=== PATIENT | female | born 1945 | race Caucasian/White ===

== ENCOUNTER → 2016-07-21 | Outpatient (REF) | payer MEDICARE ==
[~2016-07-21] MED LIST: *BLDWK10; *BLDWK7; *BLDWK8; *MAMMOGRAM; /ADVA50050 INH; /ATOR40TA; /ATOR40TA OR; /GLIM2TA; /GLIM2TA OR; /GLIM2TA PO; /MOXI40TA; /MOXI40TA OR; /MOXI40TA PO; ACET-654 PO; ACET65TA OR; ADVAIR; ADVAIR INH; ADVAIR100 INHALATION; ADVAIR200 INHALATION; ADVAIR500 INHALATION; ALB2.5NEB INH; ALBOTERNEB INHALATION; ALBU0.084 NEB; ALBU17IN2; ALBU17IN2 INH; ALBU83IN IN; ALBUTEROL; ALBUTEROL INH; ALBUTEROL INHALATION; ALBUTEROL INHALER INH; ALBUTEROL INHL INH; ALCOHOL TOP; AMAR1TAB; AMARYL2 PO; ASPI81TA85 PO; ATROVENT0.02% INH; ATROVENTIN; AZOPT 1% OU; BISA10SU2 RE; CEFT500T; CLAR5CHW; CLARITIN PO; CLARITIN10 PO; COLA100C2; COLA100C2 OR; COLA50CA3 PO; DIGO0.126 OR; DOXYCYC100 PO; DRISDOL; DRISDOL50 PO; DUONSOL; DUONSOL IN; DUONSOL INH; DUONSOL INHALATION; DUONSOL NEB; FERR325T; FERR325T OR; FERR325T3 PO; FLONASESPR NASAL; FLUC10TA OR; GLIM1TAB OR; GLIMEPIRIDE OR; GLUCOSE TEST; HCTZ25 PO; HYDR-727 OR; HYDR25TA6; HYDR25TA6 PO; I-VITAB2 OU; IRON CR PO; LACT10SO PO; LANCMIS; LEVA750T OR; LIPITOR10 PO; LIPITOR20 PO; LIPITOR40 PO; LORATADINE OR; LORTAB; METH32TA PO; MEVACOR40 PO; MOXI1TAB PO; O2; OMEP20TA7; OMEP20TA7 OR; OMEPRAZ20 PO; POTA10CA2; POTA20TA2; PRED10TA PO; PRED10TA2; PRED10TA2 OR; PRED10TA2 PO; PRED20TA; PRED20TA OR; PRED20TA PO; PREDNISONE TAPER; PREMPRO2.5; PROTONIX40 PO; SENO8.6T5 OR; SERENITY; SEREVENTIN PO; SING10TA31; SING10TA31 OR; SINGULAI10 PO; SYRINS1CC SUBQ; TRAV04OPD OU; TRAVATAN Z 0.004% OU; TYLE325T5 PO; VITA100037 PO; VITAMIN D OR; VITAMIN D PO; VITAMIN D50000 UNT; ZITHROZPAK PO; [UNRECOGNIZED DRUG - OTHER] PO; [UNRECOGNIZED DRUG - OTHER] TOPICALLY
[2016-07-21 13:12] LABS: ALBUMIN 3.5 GM/DL (3.2-5.2); ALBUMIN/GLOBULIN RATIO 1.09 (1.00-1.93); ALKALINE PHOSPHATASE 116 U/L (45-117); ALT/SGPT 29 U/L (12-78); ANION GAP 6 MEQ/L (8-16); AST/SGOT 17 U/L (15-37); BILIRUBIN,TOTAL 0.3 MG/DL (0.2-1.0); BLOOD UREA NITROGEN 8 MG/DL (7-18); CALCIUM LEVEL 9.8 MG/DL (8.8-10.2); CARBON DIOXIDE LEVEL 32 MEQ/L (21-32); CHLORIDE LEVEL 108 MEQ/L (98-107); CHOLESTEROL LEVEL 147 MG/DL (<200); CREATININE FOR GFR 0.61 MG/DL (0.55-1.02); FERRITIN 198 NG/ML (8-252); GLOMERULAR FILTRATION RATE > 60.0 (>39); GLUCOSE, FASTING 116 MG/DL (83-110); POTASSIUM SERUM 4.4 MEQ/L (3.5-5.1); SODIUM LEVEL 146 MEQ/L (136-145); TOTAL PROTEIN 6.7 GM/DL (6.4-8.2); TRIGLYCERIDES LEVEL 79 MG/DL (<150)
[2016-07-21 13:19] LABS: MEAN CORPUSCULAR VOLUME 90.6 fl (80.0-96.0); RED CELL DISTRIBUTION WIDTH 13.4 % (11.5-14.5); WHITE BLOOD COUNT 5.8 K/mm3 (4.0-10.0)
== END ==
LOC: M SFHCPLAZ 09:28
PROVIDERS: ATTEND Nurse Practitioner Adult Health
DX: D50.9 Iron deficiency anemia, unspecified (principal); E11.9 Type 2 diabetes mellitus without complications; E55.9 Vitamin D deficiency, unspecified

== ENCOUNTER 2017-01-15 09:46 | Emergency (ER) | payer MEDICARE, MEDICAID ==
[~2017-01-15] VITALS: Ht 152.4 cm; Wt 73.6 kg
[~2017-01-15 09:46] MED LIST changes: -VITA100037 PO; +VITA100067 PO
--- NOTE | 2017-01-15 11:46 | ECGEPIP ---
Stationary ECG Study [facility] - ED Test Date: 2017-01-15 Pat Name: YAMINI DUNNE Department: Room: - Gender: F Laborer General: JT : 1945 Requested By: Fish Zavala Order Number: [id number] Reading MD: Amy Montgomery Measurements Intervals [place] Rate: 94 P: 76 AK: 156 QRS: 35 QRSD: 74 T: 37 QT: 356 QTc: 447 Interpretive Statements SINUS RHYTHM NSTTW ABNORMALITY DECREASED RATE 05/14/15 Electronically Signed On 01-15-2017 11:46:17 EDT by Amy Montgomery
--- NOTE | 2017-01-15 11:47 | REP ---
Portable chest x-ray: Single view. History: Chest pain. Comparison study May 14, 2015. Comparison CT ANGIO of the chest is from that same date. Findings: EKG monitoring electrodes overlie the chest. There is pleuroparenchymal scarring in the left apex which is unchanged. Granulomatous lymph node calcifications are observed in the right paratracheal region. Heart is not enlarged. No new infiltrate is seen. Pulmonary vasculature is not increased. Impression: Evidence of COPD. Left apical pleuroparenchymal scarring. Granulomatous lymph node calcifications. No acute disease. Signed by Praveen Nelson MD 01/15/2017 03:20 P
[2017-01-15 11:57] LABS: BASO % 0.6 % (0.0-1.0); EOS # 0.2 K/mm3 (0.0-0.50); EOS % 3.3 % (0.0-3.0); LARGE UNSTAINED CELL # 0.1 K/mm3 (0.0-0.4); LARGE UNSTAINED CELL % 1.6 % (0.0-4.0); LYMPH # 1.6 K/mm3 (1.5-4.5); LYMPH % 23.9 % (24.0-44.0); MEAN CORPUSCULAR HEMOGLOBIN 29.3 pg (27.0-33.0); MEAN CORPUSCULAR VOLUME 88.7 fl (80.0-96.0); MONO # 0.3 K/mm3 (0.0-0.8); MONO % 4.6 % (0.0-5.0); NEUTROPHILS # 4.4 K/mm3 (1.8-7.7); PLATELET COUNT, AUTOMATED 319 k/mm3 (150-450); RED CELL DISTRIBUTION WIDTH 12.9 % (11.5-14.5); WHITE BLOOD COUNT 6.6 K/mm3 (4.0-10.0)
[2017-01-15 12:17] LABS: ANION GAP 4 MEQ/L (8-16); BLOOD UREA NITROGEN 7 MG/DL (7-18); CARBON DIOXIDE LEVEL 34 MEQ/L (21-32); CHLORIDE LEVEL 103 MEQ/L (98-107); CREATININE FOR GFR 0.57 MG/DL (0.55-1.02); GLOMERULAR FILTRATION RATE > 60.0 (>39); GLUCOSE, FASTING 97 MG/DL (83-110); POTASSIUM SERUM 3.8 MEQ/L (3.5-5.1); SODIUM LEVEL 141 MEQ/L (136-145)
[2017-01-15] MEDS ORDERED: ISOVUE-370 76% 100ML VIAL (Q9967) As Ordered ONE (12:54)
--- NOTE | 2017-01-15 13:26 | REP ---
CT of the chest CT pulmonary angiography protocol: Comparison is 05/14/2015. Studies performed with intravenous contrast. There are no emboli in the pulmonary trunk or central pulmonary arteries. There are no emboli in the pulmonary artery lobe or segment branches. There is chronic pleural parenchymal scarring in the lung apices, unchanged. There is chronic parenchymal scarring and partial chronic collapse of the left upper lobe posteriorly along the major fissure, unchanged. There are small bulla throughout the lung weber bilaterally, unchanged. There is a subsegmental infiltrate in the deep sulcus of the left lung posterolaterally as an interval change. There are a few calcified granulomas, unchanged. There are calcified mediastinal and hilar nodes, unchanged. The thoracic aorta is unremarkable. Cardiac size is normal. In the visualized upper abdomen there is a ring-shaped gallbladder calculus in the gallbladder neck. There is a small cyst at the inferior tip of the hepatic right lobe. There are multiple splenic calcified granulomas. The adrenals are unremarkable. Impression: No pulmonary embolus. New small subsegmental infiltrate in the deep sulcus of the left lung posterolaterally. Chronic parenchymal scarring bilaterally as described. Calcified granulomas as described. Numerous bulla throughout the lung weber bilaterally. Gallbladder calculus. Signed by Doe Marc MD 01/15/2017 01:19 P
[2017-01-15] MEDS ORDERED: AZIT-12 PO (14:37)
[2017-01-15 14:41] VITALS: BP 140/64
[2017-01-15] MEDS ORDERED: AZITHROMYCIN 250 MG TAB PO ONE (14:45)
--- NOTE | 2017-01-17 05:40 | ECGEPIP ---
Stationary ECG Study [facility] - ED Test Date: 2017-01-15 Pat Name: YAMINI DUNNE Department: Room: - Gender: F Maintenance Analyst: JT : 1945 Requested By: Fish Zavala Order Number: [id number] Reading MD: Fish Carmen Measurements Intervals [place] Rate: 89 P: 82 ME: 158 QRS: 28 QRSD: 73 T: 38 QT: 373 QTc: 454 Interpretive Statements SINUS RHYTHM Electronically Signed On 01-17-2017 5:40:47 EDT by Fish Carmen
== END 2017-01-15 16:37 | disposition home or self-care (01) ==
LOC: M ED 09:46
DX: J18.9 Pneumonia, unspecified organism (principal); E11.9 Type 2 diabetes mellitus without complications; I10 Essential (primary) hypertension; J44.9 Chronic obstructive pulmonary disease, unspecified; Z79.899 Other long term (current) drug therapy; Z79.82 Long term (current) use of aspirin; Z79.51 Long term (current) use of inhaled steroids; Z99.81 Dependence on supplemental oxygen; Z88.0 Allergy status to penicillin; Z87.891 Personal history of nicotine dependence
CPT/HCPCS: 36415; 71010; 71275; 80048; 82550; 82553; 84484; 85025; 93005; 93041; 94760; 99285; Q9967

== ENCOUNTER → 2017-08-16 | Outpatient (REF) | payer MEDICARE, MEDICAID ==
[2017-08-16 16:14] LABS: ALBUMIN 3.3 GM/DL (3.2-5.2); ALBUMIN/GLOBULIN RATIO 0.83 (1.00-1.93); ALKALINE PHOSPHATASE 128 U/L (45-117); ALT/SGPT 23 U/L (12-78); ANION GAP 5 MEQ/L (8-16); AST/SGOT 18 U/L (7-37); BILIRUBIN,TOTAL 0.3 MG/DL (0.2-1.0); BLOOD UREA NITROGEN 9 MG/DL (7-18); CALCIUM LEVEL 9.7 MG/DL (8.8-10.2); CARBON DIOXIDE LEVEL 31 MEQ/L (21-32); CHLORIDE LEVEL 105 MEQ/L (98-107); CHOLESTEROL LEVEL 130 MG/DL (<200); CHOLESTEROL RISK RATIO 3.513 (<5); CREATININE FOR GFR 0.59 MG/DL (0.55-1.30); GLOMERULAR FILTRATION RATE > 60.0 (>39); GLUCOSE, FASTING 94 MG/DL (70-100); HDL CHOLESTEROL 37 MG/DL (>40); LDL CHOLESTEROL 65.2 MG/DL (<100); NON-HDL-C 93 MG/DL; SODIUM LEVEL 141 MEQ/L (136-145); TOTAL PROTEIN 7.3 GM/DL (6.4-8.2); TRIGLYCERIDES LEVEL 139 MG/DL (<150)
[2017-08-16 16:21] LABS: CREATININE, URINE 17.6 MG/DL; MALB URINE SIEMENS 5.3 MG/L; MAU/CREAT RATIO 30.1 MCG/MG (0.0-30.0)
[2017-08-16 17:18] LABS: ESTIMATED AVERAGE GLUCOSE 117 MG/DL (60-110); HEMOGLOBIN A1c 5.7 %
== END ==
LOC: M SFHCPLAZ 13:59
DX: E11.9 Type 2 diabetes mellitus without complications (principal); E55.9 Vitamin D deficiency, unspecified; E78.00 Pure hypercholesterolemia, unspecified
CPT/HCPCS: 80053

== ENCOUNTER 2017-09-02 13:38 | Inpatient (IN) | payer MEDICARE, MEDICAID ==
[2017-09-02] MEDS: ONDANSETRON 4MG/2ML VIAL (J2405) IV (14:01)
[2017-09-02] MEDS: MORPHINE 4 MG/ML 1ML VIAL/SYRINGE (J2270) IV (14:01)
[2017-09-02] MEDS: NS 1,000 ML IV (14:01)
[2017-09-02 14:19] LABS: BASO % 0.2 % (0.0-1.0); EOS # 0.1 10^3/uL (0.0-0.50); EOS % 0.5 % (0.0-3.0); HEMOGLOBIN 13.2 g/dl (12.0-15.5); IMMATURE GRANULOCYTE % 0.4 % (0-3.0); LYMPH # 3.3 10^3/uL (1.5-4.5); LYMPH % 18.9 % (24.0-44.0); MEAN CORPUSCULAR HEMOGLOBIN 27.3 pg (27.0-33.0); MEAN CORPUSCULAR HGB CONC 31.4 g/dl (32.0-36.5); MEAN CORPUSCULAR VOLUME 86.8 fl (80.0-96.0); MONO # 1.5 10^3/uL (0.0-0.8); MONO % 8.9 % (0.0-5.0); NEUTROPHILS # 12.3 10^3/uL (1.8-7.7); NEUTROPHILS % 71.1 % (36.0-66.0); PLATELET COUNT, AUTOMATED 297 10^3/uL (150-450); RED BLOOD COUNT 4.84 10^6/uL (4.00-5.40); RED CELL DISTRIBUTION WIDTH 14.3 % (11.5-14.5); WHITE BLOOD COUNT 17.3 10^3/uL (4.0-10.0)
[2017-09-02 14:29] LABS: INR 1.23; PROTHROMBIN TIME 15.7 SECONDS (12.4-14.5)
[2017-09-02 14:42] LABS: LACTIC ACID SEPSIS PROTOCOL 1.2 MMOL/L (0.4-2.0)
[2017-09-02 14:43] LABS: ALBUMIN/GLOBULIN RATIO 0.71 (1.00-1.93); ALKALINE PHOSPHATASE 134 U/L (45-117); ALT/SGPT 24 U/L (12-78); ANION GAP 6 MEQ/L (8-16); AST/SGOT 21 U/L (7-37); BILIRUBIN,DIRECT 0.3 MG/DL (0.0-0.2); BILIRUBIN,TOTAL 0.7 MG/DL (0.2-1.0); BLOOD UREA NITROGEN 27 MG/DL (7-18); CALCIUM LEVEL 9.8 MG/DL (8.8-10.2); CARBON DIOXIDE LEVEL 32 MEQ/L (21-32); CHLORIDE LEVEL 99 MEQ/L (98-107); CREATININE FOR GFR 0.73 MG/DL (0.55-1.30); GLOMERULAR FILTRATION RATE > 60.0 (>39); GLUCOSE, FASTING 78 MG/DL (70-100); LIPASE 187 U/L (73-393); POTASSIUM SERUM 3.6 MEQ/L (3.5-5.1); SODIUM LEVEL 137 MEQ/L (136-145); TOTAL PROTEIN 7.2 GM/DL (6.4-8.2)
[2017-09-02] MEDS: CIPROFLOXACIN 400 MG in APPROPRIATE DILUENT 1 EA IV (15:04)
[2017-09-02 15:18] LABS: CK-MB VALUE MASS < 1.0 NG/ML (<3.6); CPK CREATINE PHOSPHOKINASE 63 U/L (26-192); MB/CK RELATIVE INDEX 1.58 (< OR =4); TROPONIN I < 0.02 NG/ML (< 0.10)
[2017-09-02] MEDS ORDERED: MORPHINE 4 MG/ML 1ML VIAL/SYRINGE (J2270) IV (15:45)
[2017-09-02] MEDS ORDERED: ACETAMINOPHEN 325 MG TAB PO (15:45)
[2017-09-02] MEDS ORDERED: ACETAMINOPHEN TAB 650MG DOSE (2X325MG) PO (15:45)
[2017-09-02] MEDS ORDERED: NORCO, ANEXSIA 5/325MG TABLET (HYDROcodone/ACETAMINOPHEN) PO (15:45)
[2017-09-02] MEDS ORDERED: ONDANSETRON 4MG/2ML VIAL (J2405) IV (15:45)
[2017-09-02] MEDS: metroNIDAZOLE 500 MG in APPROPRIATE DILUENT 1 EA IV ×2 (16:34→23:21)
[2017-09-02] MEDS: LR 1,000 ML IV (16:34)
[2017-09-02] MEDS: IPRATROPIUM 0.5MG/ALBUTEROL 2.5MG INH SOL UD 3ML (DUONEB)(J7620) INH (17:59)
[2017-09-02] MEDS ORDERED: IPRATROPIUM 0.5MG/ALBUTEROL 2.5MG INH SOL UD 3ML (DUONEB)(J7620) NEB (20:00)
[2017-09-02] MEDS: PANTOPRAZOLE 40MG INJ (PROTONIX) (C9113) IV (20:43)
[2017-09-02] MEDS: MONTELUKAST 10 MG TAB PO (20:44)
[2017-09-02] MEDS: SENOKOT S TAB PO (20:44)
[2017-09-02] MEDS: HEPARIN SOD (PORCINE) 5000 UNITS/ML VIAL SC (20:44)
[2017-09-02] MEDS: ADVAIR HFA 230/21MCG INHALER INH (21:44)
[2017-09-02] MEDS: LATANOPROST 0.005% OPHTH SOLN 2.5 ML OU (22:43)
[2017-09-02] MEDS: KETOROLAC 30 MG/ML VIAL (J1885) IV (22:47)
[2017-09-03 00:39] LABS: BEDSIDE GLUCOSE 74 MG/DL (83-110)
[2017-09-03] MEDS: CIPROFLOXACIN 400 MG in APPROPRIATE DILUENT 1 EA IV ×2 (03:01→20:42)
[2017-09-03] MEDS: LR 1,000 ML IV ×4 (03:06→16:30)
[2017-09-03 03:24] LABS: BEDSIDE GLUCOSE 73 MG/DL (83-110)
[2017-09-03] MEDS: metroNIDAZOLE 500 MG in APPROPRIATE DILUENT 1 EA IV ×3 (06:02→22:50)
[2017-09-03 06:06] LABS: ABG BASE EXCESS 4.6 (-2.0-2.0); ABG HCO3 30.2 MEQ/L (22.0-26.0); ABG O2 SATURATION 97.6 % (95.0-99.0); ABG PARTIAL PRESSURE CO2 49.3 mmHg (35.0-45.0); ABG PARTIAL PRESSURE O2 96.3 mmHg (75.0-100.0); ABG STANDARD HCO3 28.6 MEQ/L (22.0-26.0); ABG TOTAL CO2 31.7 MEQ/L (23.0-31.0); ABG pH (ARTERIAL) 7.405 UNITS (7.350-7.450)
[2017-09-03 06:16] LABS: HEMATOCRIT 34.5 % (36.0-47.0); MEAN CORPUSCULAR HEMOGLOBIN 27.1 pg (27.0-33.0); MEAN CORPUSCULAR HGB CONC 30.7 g/dl (32.0-36.5); MEAN CORPUSCULAR VOLUME 88.2 fl (80.0-96.0); PLATELET COUNT, AUTOMATED 231 10^3/uL (150-450); RED BLOOD COUNT 3.91 10^6/uL (4.00-5.40); RED CELL DISTRIBUTION WIDTH 14.4 % (11.5-14.5); WHITE BLOOD COUNT 9.9 10^3/uL (4.0-10.0)
[2017-09-03 06:25] LABS: HEMOGLOBIN 10.6 g/dl (12.0-15.5)
[2017-09-03 06:28] LABS: ALBUMIN 2.1 GM/DL (3.2-5.2); ALKALINE PHOSPHATASE 97 U/L (45-117); ALT/SGPT 17 U/L (12-78); ANION GAP 5 MEQ/L (8-16); AST/SGOT 16 U/L (7-37); BILIRUBIN,TOTAL 0.4 MG/DL (0.2-1.0); BLOOD UREA NITROGEN 16 MG/DL (7-18); CALCIUM LEVEL 9.2 MG/DL (8.8-10.2); CARBON DIOXIDE LEVEL 31 MEQ/L (21-32); CHLORIDE LEVEL 105 MEQ/L (98-107); CREATININE FOR GFR 0.52 MG/DL (0.55-1.30); GLOMERULAR FILTRATION RATE > 60.0 (>39); GLUCOSE, FASTING 85 MG/DL (70-100); MAGNESIUM LEVEL 2.2 MG/DL (1.8-2.4); POTASSIUM SERUM 3.4 MEQ/L (3.5-5.1); SODIUM LEVEL 141 MEQ/L (136-145); TOTAL PROTEIN 6.3 GM/DL (6.4-8.2)
[2017-09-03] MEDS: SENOKOT S TAB PO ×2 (07:52→20:34)
[2017-09-03] MEDS: VITAMIN D 1,000 INTERNATIONAL UNITS TABLET PO (07:52)
[2017-09-03] MEDS: HEPARIN SOD (PORCINE) 5000 UNITS/ML VIAL SC ×2 (07:53→20:41)
[2017-09-03] MEDS: ADVAIR HFA 230/21MCG INHALER INH ×2 (08:02→19:37)
[2017-09-03] MEDS: ATORVASTATIN 20 MG TAB PO (09:00)
[2017-09-03] MEDS: POTASSIUM CHLORIDE 10 MEQ SR TABLET PO (11:00)
[2017-09-03] MEDS: TIOTROPIUM INHALER/CAPSULE (SPIRIVA) INH (11:14)
[2017-09-03] MEDS: BUDESONIDE 0.5 MG/2 ML INHALATION SUSPENSION INH ×2 (11:14→19:37)
[2017-09-03] MEDS: IPRATROPIUM 0.5MG/ALBUTEROL 2.5MG INH SOL UD 3ML (DUONEB)(J7620) NEB ×3 (11:15→19:37)
[2017-09-03] MEDS ORDERED: MIDAZOLAM INJ 2 MG/2 ML VIAL (J2250) As Ordered (12:08)
[2017-09-03] MEDS ORDERED: fentaNYL 100 MCG/2 ML INJECTION (J3010) As Ordered ×3 (12:08→16:39)
[2017-09-03] MEDS ORDERED: ROCURONIUM BROMIDE 50 MG/5 ML VIAL As Ordered (12:09)
[2017-09-03] MEDS ORDERED: PROPOFOL 200 MG/20 ML VIAL As Ordered (12:09)
[2017-09-03] MEDS ORDERED: LIDOCAINE 2% INJ 100 MG/5 ML SDV (FOR ANES.) As Ordered (12:09)
[2017-09-03] MEDS: LIDOCAINE 1% SDV INJ 30 ML VIAL As Ordered (13:02)
[2017-09-03] MEDS: BUPIVACAINE HCL 0.25% 30 ML VIAL As Ordered (13:02)
[2017-09-03] MEDS ORDERED: dexameTHASONE 4 MG/ML 1ML VIAL (J1100) As Ordered (13:45)
[2017-09-03] MEDS ORDERED: ONDANSETRON 4MG/2ML VIAL (J2405) As Ordered (13:45)
[2017-09-03] MEDS ORDERED: KETOROLAC 60 MG/2 ML VIAL (J1885) As Ordered (13:45)
[2017-09-03] MEDS: CIPROFLOXACIN/D5W 400 MG/200 ML BAG (J0744) As Ordered (14:56)
[2017-09-03] MEDS ORDERED: SUGAMMADEX SODIUM 500 MG/5 ML VIAL (BRIDION) As Ordered (15:11)
[2017-09-03] MEDS ORDERED: ESMOLOL INJ 100MG/10ML VIAL As Ordered (15:46)
[2017-09-03 16:23] LABS: BEDSIDE GLUCOSE 179 MG/DL (83-110)
[2017-09-03] MEDS ORDERED: ONDANSETRON 4MG/2ML VIAL (J2405) IV (16:30)
[2017-09-03] MEDS ORDERED: fentaNYL 100 MCG/2 ML INJECTION (J3010) IV (16:30)
[2017-09-03] MEDS: OMEGA-3 1050MG CAPSULE PO (20:33)
[2017-09-03] MEDS: MONTELUKAST 10 MG TAB PO (20:34)
[2017-09-03] MEDS: KETOROLAC 30 MG/ML VIAL (J1885) IV (20:42)
[2017-09-03] MEDS: LATANOPROST 0.005% OPHTH SOLN 2.5 ML OU (20:43)
[2017-09-03] MEDS: PANTOPRAZOLE 40MG INJ (PROTONIX) (C9113) IV (22:00)
[2017-09-03] MEDS: POTASSIUM CHLORIDE INJ 40 MEQ in LR 1,000 ML IV (22:50)
[2017-09-04] MEDS: KETOROLAC 30 MG/ML VIAL (J1885) IV ×2 (05:29→13:57)
[2017-09-04 06:13] LABS: BASO % 0.2 % (0.0-1.0); HEMATOCRIT 34.9 % (36.0-47.0); HEMOGLOBIN 11.2 g/dl (12.0-15.5); IMMATURE GRANULOCYTE % 0.2 % (0-3.0); LYMPH # 0.9 10^3/uL (1.5-4.5); LYMPH % 7.1 % (24.0-44.0); MEAN CORPUSCULAR HEMOGLOBIN 27.9 pg (27.0-33.0); MEAN CORPUSCULAR HGB CONC 32.1 g/dl (32.0-36.5); MONO % 8.1 % (0.0-5.0); NEUTROPHILS # 10.4 10^3/uL (1.8-7.7); NEUTROPHILS % 84.4 % (36.0-66.0); PLATELET COUNT, AUTOMATED 213 10^3/uL (150-450); RED BLOOD COUNT 4.01 10^6/uL (4.00-5.40); RED CELL DISTRIBUTION WIDTH 14.1 % (11.5-14.5); WHITE BLOOD COUNT 12.4 10^3/uL (4.0-10.0)
[2017-09-04 06:27] LABS: ALBUMIN 2.2 GM/DL (3.2-5.2); ALBUMIN/GLOBULIN RATIO 0.54 (1.00-1.93); ALKALINE PHOSPHATASE 105 U/L (45-117); ALT/SGPT 35 U/L (12-78); ANION GAP 5 MEQ/L (8-16); AST/SGOT 41 U/L (7-37); BILIRUBIN,TOTAL 0.3 MG/DL (0.2-1.0); BLOOD UREA NITROGEN 9 MG/DL (7-18); CALCIUM LEVEL 9.2 MG/DL (8.8-10.2); CARBON DIOXIDE LEVEL 31 MEQ/L (21-32); CHLORIDE LEVEL 106 MEQ/L (98-107); CREATININE FOR GFR 0.44 MG/DL (0.55-1.30); GLOMERULAR FILTRATION RATE > 60.0 (>39); GLUCOSE, FASTING 123 MG/DL (70-100); POTASSIUM SERUM 4.1 MEQ/L (3.5-5.1); SODIUM LEVEL 142 MEQ/L (136-145); TOTAL PROTEIN 6.3 GM/DL (6.4-8.2)
[2017-09-04] MEDS: metroNIDAZOLE 500 MG in APPROPRIATE DILUENT 1 EA IV ×3 (06:28→23:14)
[2017-09-04 06:33] LABS: POS COUNT POS FLAG
[2017-09-04] MEDS: IPRATROPIUM 0.5MG/ALBUTEROL 2.5MG INH SOL UD 3ML (DUONEB)(J7620) NEB ×4 (08:00→20:03)
[2017-09-04] MEDS: BUDESONIDE 0.5 MG/2 ML INHALATION SUSPENSION INH ×2 (08:11→20:03)
[2017-09-04] MEDS: TIOTROPIUM INHALER/CAPSULE (SPIRIVA) INH (08:11)
[2017-09-04] MEDS: ADVAIR HFA 230/21MCG INHALER INH ×2 (08:11→20:03)
[2017-09-04] MEDS: CIPROFLOXACIN 400 MG in APPROPRIATE DILUENT 1 EA IV ×2 (09:46→20:13)
[2017-09-04] MEDS: OMEGA-3 1050MG CAPSULE PO (09:46)
[2017-09-04] MEDS: VITAMIN D 1,000 INTERNATIONAL UNITS TABLET PO (09:46)
[2017-09-04] MEDS: ATORVASTATIN 20 MG TAB PO (09:46)
[2017-09-04] MEDS: HEPARIN SOD (PORCINE) 5000 UNITS/ML VIAL SC ×2 (09:46→20:14)
[2017-09-04] MEDS: SENOKOT S TAB PO ×2 (09:46→20:13)
[2017-09-04] MEDS ORDERED: MORPHINE 4 MG/ML 1ML VIAL/SYRINGE (J2270) IV (10:45)
[2017-09-04] MEDS: LR 1,000 ML IV ×2 (11:39→23:14)
[2017-09-04] MEDS: PREVNAR 13 VACCINE SYRINGE (CPT CODE:90670) IM (16:06)
[2017-09-04] MEDS: MONTELUKAST 10 MG TAB PO (20:14)
[2017-09-04] MEDS: PANTOPRAZOLE 40MG INJ (PROTONIX) (C9113) IV (20:14)
[2017-09-04] MEDS: LATANOPROST 0.005% OPHTH SOLN 2.5 ML OU (20:15)
[2017-09-05 06:16] LABS: HEMATOCRIT 31.6 % (36.0-47.0); MEAN CORPUSCULAR HEMOGLOBIN 27.8 pg (27.0-33.0); MEAN CORPUSCULAR HGB CONC 31.6 g/dl (32.0-36.5); MEAN CORPUSCULAR VOLUME 87.8 fl (80.0-96.0); PLATELET COUNT, AUTOMATED 247 10^3/uL (150-450); RED CELL DISTRIBUTION WIDTH 14.5 % (11.5-14.5); WHITE BLOOD COUNT 9.6 10^3/uL (4.0-10.0)
[2017-09-05] MEDS: metroNIDAZOLE 500 MG in APPROPRIATE DILUENT 1 EA IV ×3 (06:30→23:35)
[2017-09-05 06:40] LABS: ALBUMIN 2.1 GM/DL (3.2-5.2); ALBUMIN/GLOBULIN RATIO 0.51 (1.00-1.93); ALKALINE PHOSPHATASE 90 U/L (45-117); ALT/SGPT 29 U/L (12-78); ANION GAP 5 MEQ/L (8-16); AST/SGOT 30 U/L (7-37); BILIRUBIN,TOTAL 0.4 MG/DL (0.2-1.0); BLOOD UREA NITROGEN 6 MG/DL (7-18); CALCIUM LEVEL 9.1 MG/DL (8.8-10.2); CARBON DIOXIDE LEVEL 34 MEQ/L (21-32); CHLORIDE LEVEL 104 MEQ/L (98-107); CREATININE FOR GFR 0.34 MG/DL (0.55-1.30); GLOMERULAR FILTRATION RATE > 60.0 (>39); GLUCOSE, FASTING 109 MG/DL (70-100); POTASSIUM SERUM 3.5 MEQ/L (3.5-5.1); SODIUM LEVEL 143 MEQ/L (136-145); TOTAL PROTEIN 6.2 GM/DL (6.4-8.2)
[2017-09-05] MEDS: IPRATROPIUM 0.5MG/ALBUTEROL 2.5MG INH SOL UD 3ML (DUONEB)(J7620) NEB ×4 (07:31→20:00)
[2017-09-05] MEDS: BUDESONIDE 0.5 MG/2 ML INHALATION SUSPENSION INH ×2 (08:50→20:00)
[2017-09-05] MEDS: TIOTROPIUM INHALER/CAPSULE (SPIRIVA) INH (08:50)
[2017-09-05] MEDS: ADVAIR HFA 230/21MCG INHALER INH ×2 (08:50→21:27)
[2017-09-05] MEDS: HEPARIN SOD (PORCINE) 5000 UNITS/ML VIAL SC ×2 (09:03→20:24)
[2017-09-05] MEDS: CIPROFLOXACIN 400 MG in APPROPRIATE DILUENT 1 EA IV ×2 (09:03→20:24)
[2017-09-05] MEDS: SENOKOT S TAB PO ×2 (09:03→20:23)
[2017-09-05] MEDS: NORCO, ANEXSIA 5/325MG TABLET (HYDROcodone/ACETAMINOPHEN) PO (14:35)
[2017-09-05 17:01] LABS: BEDSIDE GLUCOSE 176 MG/DL (83-110)
[2017-09-05 17:01] LABS: BEDSIDE GLUCOSE 95 MG/DL (83-110)
[2017-09-05 17:01] LABS: BEDSIDE GLUCOSE 154 MG/DL (83-110)
[2017-09-05 17:01] LABS: BEDSIDE GLUCOSE 105 MG/DL (83-110)
[2017-09-05 17:01] LABS: BEDSIDE GLUCOSE 192 MG/DL (83-110)
[2017-09-05 17:01] LABS: BEDSIDE GLUCOSE 141 MG/DL (83-110)
[2017-09-05 17:01] LABS: BEDSIDE GLUCOSE 138 MG/DL (83-110)
[2017-09-05] MEDS: MONTELUKAST 10 MG TAB PO (20:23)
[2017-09-05] MEDS: PANTOPRAZOLE 40MG INJ (PROTONIX) (C9113) IV (20:23)
[2017-09-05] MEDS: LATANOPROST 0.005% OPHTH SOLN 2.5 ML OU (20:24)
[2017-09-06 05:53] LABS: HEMATOCRIT 31.2 % (36.0-47.0); HEMOGLOBIN 9.8 g/dl (12.0-15.5); MEAN CORPUSCULAR HEMOGLOBIN 27.9 pg (27.0-33.0); MEAN CORPUSCULAR HGB CONC 31.4 g/dl (32.0-36.5); MEAN CORPUSCULAR VOLUME 88.9 fl (80.0-96.0); PLATELET COUNT, AUTOMATED 223 10^3/uL (150-450); RED BLOOD COUNT 3.51 10^6/uL (4.00-5.40); RED CELL DISTRIBUTION WIDTH 14.5 % (11.5-14.5)
[2017-09-06 06:15] LABS: ALBUMIN/GLOBULIN RATIO 0.51 (1.00-1.93); ALKALINE PHOSPHATASE 84 U/L (45-117); ALT/SGPT 32 U/L (12-78); ANION GAP 4 MEQ/L (8-16); AST/SGOT 34 U/L (7-37); BILIRUBIN,TOTAL 0.3 MG/DL (0.2-1.0); BLOOD UREA NITROGEN 6 MG/DL (7-18); CALCIUM LEVEL 9.3 MG/DL (8.8-10.2); CARBON DIOXIDE LEVEL 35 MEQ/L (21-32); CHLORIDE LEVEL 103 MEQ/L (98-107); CREATININE FOR GFR 0.41 MG/DL (0.55-1.30); GLOMERULAR FILTRATION RATE > 60.0 (>39); GLUCOSE, FASTING 145 MG/DL (70-100); MAGNESIUM LEVEL 2.1 MG/DL (1.8-2.4); POTASSIUM SERUM 3.4 MEQ/L (3.5-5.1); SODIUM LEVEL 142 MEQ/L (136-145); TOTAL PROTEIN 5.9 GM/DL (6.4-8.2)
[2017-09-06] MEDS: metroNIDAZOLE 500 MG in APPROPRIATE DILUENT 1 EA IV (06:47)
[2017-09-06] MEDS: NORCO, ANEXSIA 5/325MG TABLET (HYDROcodone/ACETAMINOPHEN) PO ×3 (06:55→16:34)
[2017-09-06] MEDS: ADVAIR HFA 230/21MCG INHALER INH ×2 (07:52→21:22)
[2017-09-06] MEDS: BUDESONIDE 0.5 MG/2 ML INHALATION SUSPENSION INH ×2 (07:53→20:00)
[2017-09-06] MEDS: TIOTROPIUM INHALER/CAPSULE (SPIRIVA) INH (07:53)
[2017-09-06] MEDS: IPRATROPIUM 0.5MG/ALBUTEROL 2.5MG INH SOL UD 3ML (DUONEB)(J7620) NEB ×4 (08:00→20:00)
[2017-09-06] MEDS: CIPROFLOXACIN 400 MG in APPROPRIATE DILUENT 1 EA IV (08:24)
[2017-09-06] MEDS: SENOKOT S TAB PO ×2 (08:25→21:02)
[2017-09-06] MEDS: HEPARIN SOD (PORCINE) 5000 UNITS/ML VIAL SC ×2 (08:25→21:03)
[2017-09-06] MEDS: GLIMEPIRIDE 1 MG TABLET PO (08:29)
[2017-09-06] MEDS: POTASSIUM CHLORIDE 10 MEQ SR TABLET PO (11:38)
[2017-09-06 11:46] LABS: BEDSIDE GLUCOSE 165 MG/DL (83-110)
[2017-09-06] MEDS: metroNIDAZOLE (FLAGYL) 500 MG TAB PO ×2 (14:10→21:03)
[2017-09-06] MEDS: ASPIRIN 81 MG ENTERIC TAB PO (14:10)
[2017-09-06] MEDS: CIPROFLOXACIN 500 MG TAB PO (17:18)
[2017-09-06 20:44] LABS: BEDSIDE GLUCOSE 113 MG/DL (83-110)
[2017-09-06 20:44] LABS: BEDSIDE GLUCOSE 120 MG/DL (83-110)
[2017-09-06 20:44] LABS: BEDSIDE GLUCOSE 162 MG/DL (83-110)
[2017-09-06] MEDS: MONTELUKAST 10 MG TAB PO (21:03)
[2017-09-06] MEDS: LATANOPROST 0.005% OPHTH SOLN 2.5 ML OU (21:03)
[2017-09-07 06:03] LABS: HEMATOCRIT 31.1 % (36.0-47.0); HEMOGLOBIN 9.7 g/dl (12.0-15.5); MEAN CORPUSCULAR HEMOGLOBIN 27.9 pg (27.0-33.0); MEAN CORPUSCULAR HGB CONC 31.2 g/dl (32.0-36.5); MEAN CORPUSCULAR VOLUME 89.4 fl (80.0-96.0); PLATELET COUNT, AUTOMATED 246 10^3/uL (150-450); RED BLOOD COUNT 3.48 10^6/uL (4.00-5.40); RED CELL DISTRIBUTION WIDTH 14.4 % (11.5-14.5); WHITE BLOOD COUNT 8.5 10^3/uL (4.0-10.0)
[2017-09-07] MEDS: CIPROFLOXACIN 500 MG TAB PO ×2 (06:03→17:14)
[2017-09-07] MEDS: metroNIDAZOLE (FLAGYL) 500 MG TAB PO ×3 (06:03→21:04)
[2017-09-07 06:22] LABS: ALBUMIN/GLOBULIN RATIO 0.49 (1.00-1.93); ALKALINE PHOSPHATASE 88 U/L (45-117); ALT/SGPT 43 U/L (12-78); ANION GAP 4 MEQ/L (8-16); AST/SGOT 53 U/L (7-37); BILIRUBIN,TOTAL 0.2 MG/DL (0.2-1.0); BLOOD UREA NITROGEN 9 MG/DL (7-18); CALCIUM LEVEL 9.9 MG/DL (8.8-10.2); CARBON DIOXIDE LEVEL 35 MEQ/L (21-32); CHLORIDE LEVEL 105 MEQ/L (98-107); GLOMERULAR FILTRATION RATE > 60.0 (>39); GLUCOSE, FASTING 118 MG/DL (70-100); SODIUM LEVEL 144 MEQ/L (136-145); TOTAL PROTEIN 6.1 GM/DL (6.4-8.2)
[2017-09-07] MEDS: ADVAIR HFA 230/21MCG INHALER INH ×2 (07:11→20:53)
[2017-09-07] MEDS: BUDESONIDE 0.5 MG/2 ML INHALATION SUSPENSION INH ×2 (07:11→20:53)
[2017-09-07] MEDS: TIOTROPIUM INHALER/CAPSULE (SPIRIVA) INH (07:11)
[2017-09-07] MEDS: IPRATROPIUM 0.5MG/ALBUTEROL 2.5MG INH SOL UD 3ML (DUONEB)(J7620) NEB ×4 (07:12→20:00)
[2017-09-07] MEDS: GLIMEPIRIDE 1 MG TABLET PO (08:00)
[2017-09-07] MEDS: NORCO, ANEXSIA 5/325MG TABLET (HYDROcodone/ACETAMINOPHEN) PO (08:01)
[2017-09-07] MEDS: ASPIRIN 81 MG ENTERIC TAB PO (08:01)
[2017-09-07] MEDS: SENOKOT S TAB PO ×2 (08:01→21:03)
[2017-09-07] MEDS: HEPARIN SOD (PORCINE) 5000 UNITS/ML VIAL SC ×2 (08:01→21:04)
[2017-09-07] MEDS: MOM 30ML SUSPENSION UDC PO (09:11)
[2017-09-07 19:40] LABS: BEDSIDE GLUCOSE 134 MG/DL (83-110)
[2017-09-07 19:40] LABS: BEDSIDE GLUCOSE 124 MG/DL (83-110)
[2017-09-07 20:58] LABS: BEDSIDE GLUCOSE 154 MG/DL (83-110)
[2017-09-07] MEDS: MONTELUKAST 10 MG TAB PO (21:03)
[2017-09-07] MEDS: LATANOPROST 0.005% OPHTH SOLN 2.5 ML OU (21:04)
[2017-09-08] MEDS: CIPROFLOXACIN 500 MG TAB PO (05:27)
[2017-09-08] MEDS: metroNIDAZOLE (FLAGYL) 500 MG TAB PO ×2 (05:27→14:09)
[2017-09-08 06:05] LABS: HEMATOCRIT 33.1 % (36.0-47.0); MEAN CORPUSCULAR HEMOGLOBIN 27.2 pg (27.0-33.0); MEAN CORPUSCULAR HGB CONC 30.2 g/dl (32.0-36.5); MEAN CORPUSCULAR VOLUME 89.9 fl (80.0-96.0); PLATELET COUNT, AUTOMATED 284 10^3/uL (150-450); RED BLOOD COUNT 3.68 10^6/uL (4.00-5.40); RED CELL DISTRIBUTION WIDTH 14.6 % (11.5-14.5); WHITE BLOOD COUNT 8.7 10^3/uL (4.0-10.0)
[2017-09-08 06:38] LABS: ALBUMIN 2.2 GM/DL (3.2-5.2); ALBUMIN/GLOBULIN RATIO 0.51 (1.00-1.93); ALKALINE PHOSPHATASE 96 U/L (45-117); ALT/SGPT 67 U/L (12-78); ANION GAP 5 MEQ/L (8-16); AST/SGOT 90 U/L (7-37); BILIRUBIN,TOTAL 0.3 MG/DL (0.2-1.0); BLOOD UREA NITROGEN 11 MG/DL (7-18); CALCIUM LEVEL 10.2 MG/DL (8.8-10.2); CARBON DIOXIDE LEVEL 34 MEQ/L (21-32); CHLORIDE LEVEL 105 MEQ/L (98-107); CREATININE FOR GFR 0.51 MG/DL (0.55-1.30); GLOMERULAR FILTRATION RATE > 60.0 (>39); GLUCOSE, FASTING 105 MG/DL (70-100); MAGNESIUM LEVEL 2.2 MG/DL (1.8-2.4); POTASSIUM SERUM 4.4 MEQ/L (3.5-5.1); SODIUM LEVEL 144 MEQ/L (136-145); TOTAL PROTEIN 6.5 GM/DL (6.4-8.2)
[2017-09-08] MEDS: IPRATROPIUM 0.5MG/ALBUTEROL 2.5MG INH SOL UD 3ML (DUONEB)(J7620) NEB ×3 (08:00→15:59)
[2017-09-08] MEDS: SENOKOT S TAB PO (08:21)
[2017-09-08] MEDS: HEPARIN SOD (PORCINE) 5000 UNITS/ML VIAL SC (08:21)
[2017-09-08] MEDS: GLIMEPIRIDE 1 MG TABLET PO (08:21)
[2017-09-08] MEDS: ASPIRIN 81 MG ENTERIC TAB PO (08:21)
[2017-09-08] MEDS: MOM 30ML SUSPENSION UDC PO (08:21)
[2017-09-08] MEDS: ADVAIR HFA 230/21MCG INHALER INH (08:31)
[2017-09-08] MEDS: BUDESONIDE 0.5 MG/2 ML INHALATION SUSPENSION INH (08:32)
[2017-09-08] MEDS: TIOTROPIUM INHALER/CAPSULE (SPIRIVA) INH (08:32)
[2017-09-08] MEDS: NORCO, ANEXSIA 5/325MG TABLET (HYDROcodone/ACETAMINOPHEN) PO (08:53)
[2017-09-08 11:57] LABS: BEDSIDE GLUCOSE 151 MG/DL (83-110)
[2017-09-08 16:37] LABS: BEDSIDE GLUCOSE 154 MG/DL (83-110)
== END 2017-09-08 17:25 | disposition home or self-care (01) | DRG 419 ==
LOC: M ED 13:38 → M ED INP 15:36 → M MSPAV 17:10
PROC: 0FT44ZZ Resection of Gallbladder, Percutaneous Endoscopic Approach (ICD-10-PCS; principal; 2017-09-03 13:11)
DX: K81.0 Acute cholecystitis (principal); E88.09 Other disorders of plasma-protein metabolism, not elsewhere classified; R09.02 Hypoxemia; J44.9 Chronic obstructive pulmonary disease, unspecified; Z99.81 Dependence on supplemental oxygen; E11.9 Type 2 diabetes mellitus without complications; E55.9 Vitamin D deficiency, unspecified; E78.00 Pure hypercholesterolemia, unspecified; D50.9 Iron deficiency anemia, unspecified; E04.2 Nontoxic multinodular goiter; H40.9 Unspecified glaucoma; Z90.721 Acquired absence of ovaries, unilateral; Z87.891 Personal history of nicotine dependence; Z79.82 Long term (current) use of aspirin; Z79.84 Long term (current) use of oral hypoglycemic drugs; Z88.0 Allergy status to penicillin; Z79.899 Other long term (current) drug therapy

== ENCOUNTER → 2018-01-31 | Outpatient (REF) | payer MEDICARE, MEDICAID ==
[2018-01-31 12:48] LABS: HEMATOCRIT 43.7 % (36.0-47.0); HEMOGLOBIN 13.2 g/dl (12.0-15.5); MEAN CORPUSCULAR HEMOGLOBIN 27.8 pg (27.0-33.0); MEAN CORPUSCULAR HGB CONC 30.2 g/dl (32.0-36.5); MEAN CORPUSCULAR VOLUME 92.2 fl (80.0-96.0); PLATELET COUNT, AUTOMATED 284 10^3/uL (150-450); RED BLOOD COUNT 4.74 10^6/uL (4.00-5.40); WHITE BLOOD COUNT 7.8 10^3/uL (4.0-10.0)
[2018-01-31 13:21] LABS: CREATININE, URINE 38.6 MG/DL; MALB URINE SIEMENS 6.3 MG/L
[2018-01-31 13:25] LABS: ALBUMIN 3.5 GM/DL (3.2-5.2); ALKALINE PHOSPHATASE 119 U/L (45-117); ALT/SGPT 28 U/L (12-78); ANION GAP 5 MEQ/L (8-16); AST/SGOT 20 U/L (7-37); BILIRUBIN,TOTAL 0.3 MG/DL (0.2-1.0); BLOOD UREA NITROGEN 9 MG/DL (7-18); CALCIUM LEVEL 10.2 MG/DL (8.8-10.2); CARBON DIOXIDE LEVEL 32 MEQ/L (21-32); CHLORIDE LEVEL 106 MEQ/L (98-107); CHOLESTEROL LEVEL 141 MG/DL (<200); CHOLESTEROL RISK RATIO 2.937 (<5); CREATININE FOR GFR 0.53 MG/DL (0.55-1.30); GLOMERULAR FILTRATION RATE > 60.0 (>39); GLUCOSE, FASTING 88 MG/DL (70-100); HDL CHOLESTEROL 48 MG/DL (>40); LDL CHOLESTEROL 74 MG/DL (<100); NON-HDL-C 93 MG/DL; POTASSIUM SERUM 4.3 MEQ/L (3.5-5.1); SODIUM LEVEL 143 MEQ/L (136-145); TOTAL PROTEIN 7.4 GM/DL (6.4-8.2); TRIGLYCERIDES LEVEL 93 MG/DL (<150)
[2018-01-31 13:26] LABS: MAU/CREAT RATIO 16.2 MCG/MG (0.0-30.0)
[2018-01-31 13:37] LABS: ESTIMATED AVERAGE GLUCOSE 123 MG/DL (60-110); HEMOGLOBIN A1c 5.9 %
== END ==
LOC: M SFHCPLAZ 11:02
DX: D50.9 Iron deficiency anemia, unspecified (principal); E11.9 Type 2 diabetes mellitus without complications; E78.00 Pure hypercholesterolemia, unspecified; Z23 Encounter for immunization
CPT/HCPCS: 84443

== ENCOUNTER 2018-06-25 13:24 | Inpatient (IN) | payer MEDICARE, MEDICAID ==
[~2018-06-25] VITALS: Ht 152.4 cm; Wt 65.1 kg
[~2018-06-25 13:24] MED LIST changes: +/ATOR40TA PO; +ADV500INH INH; +AZIT-12 PO; +FISH1000 PO; +GLIM2TAB PO; +IPRA0.00 INH; +NORCOTAB PO; +SIMB1SUS OU; +SING10TA31 PO; +VITA500046 PO
[2018-06-25] MEDS ORDERED: IPRATROPIUM 0.5MG/ALBUTEROL 2.5MG INH SOL UD 3ML (DUONEB)(J7620) NEB ONE (13:45)
[2018-06-25] MEDS ORDERED: ALBUTEROL SULFATE 2.5 MG/0.5 ML INH NEB SOLN INH ONE (13:45)
[2018-06-25] MEDS ORDERED: dexameTHASONE 20 MG/5 ML VIAL (J1100) IV ONE (13:45)
[2018-06-25 13:55] LABS: ABG BASE EXCESS 3.5 (-2.0-2.0); ABG HCO3 28.5 MEQ/L (22.0-26.0); ABG O2 SATURATION 99.2 % (95.0-99.0); ABG PARTIAL PRESSURE CO2 44.6 mmHg (35.0-45.0); ABG PARTIAL PRESSURE O2 158.8 mmHg (75.0-100.0); ABG STANDARD HCO3 27.6 MEQ/L (22.0-26.0); ABG TOTAL CO2 29.8 MEQ/L (23.0-31.0); ABG pH (ARTERIAL) 7.423 UNITS (7.350-7.450)
[2018-06-25 14:09] LABS: BASO % 0.5 % (0.0-1.0); EOS # 0.1 10^3/uL (0.0-0.50); EOS % 1.4 % (0.0-3.0); HEMATOCRIT 41.4 % (36.0-47.0); HEMOGLOBIN 12.9 g/dl (12.0-15.5); LYMPH # 1.9 10^3/uL (1.5-4.5); LYMPH % 24.5 % (24.0-44.0); MEAN CORPUSCULAR HEMOGLOBIN 28.2 pg (27.0-33.0); MEAN CORPUSCULAR HGB CONC 31.2 g/dl (32.0-36.5); MEAN CORPUSCULAR VOLUME 90.6 fl (80.0-96.0); MONO # 0.5 10^3/uL (0.0-0.8); MONO % 6.5 % (0.0-5.0); NEUTROPHILS # 5.1 10^3/uL (1.8-7.7); NEUTROPHILS % 66.8 % (36.0-66.0); PLATELET COUNT, AUTOMATED 273 10^3/uL (150-450); RED BLOOD COUNT 4.57 10^6/uL (4.00-5.40); WHITE BLOOD COUNT 7.6 10^3/uL (4.0-10.0)
[2018-06-25 14:42] LABS: ALBUMIN 3.2 GM/DL (3.2-5.2); ALT/SGPT 29 U/L (12-78); BILIRUBIN,DIRECT 0.1 MG/DL (0.0-0.2); BILIRUBIN,TOTAL 0.3 MG/DL (0.2-1.0); BLOOD UREA NITROGEN 8 MG/DL (7-18); CALCIUM LEVEL 10.1 MG/DL (8.8-10.2); CARBON DIOXIDE LEVEL 30 MEQ/L (21-32); CHLORIDE LEVEL 102 MEQ/L (98-107); CPK CREATINE PHOSPHOKINASE 125 U/L (26-192); GLOMERULAR FILTRATION RATE > 60.0 (>39); GLUCOSE, FASTING 134 MG/DL (70-100); MB/CK RELATIVE INDEX 1.52 (< OR =4); NT-PRO BNP 84 PG/ML (<450); SODIUM LEVEL 140 MEQ/L (136-145); THYROXINE (T4) 12.5 UG/DL (4.5-12.0); TOTAL PROTEIN 7.8 GM/DL (6.4-8.2); TROPONIN I < 0.02 NG/ML (< 0.10)
--- NOTE | 2018-06-25 14:43 | REP ---
Clinical: Cough and dyspnea . Comparison: 09/02/2017 . Findings: The mediastinum and cardiac silhouette are stable and within normal limits for portable technique. Diffuse bilateral pleuroparenchymal changes are appreciated and stable. No acute process identified. Skeletal structures are intact. Impression: Stable diffuse pleuroparenchymal changes. No acute process identified. Electronically Signed by Aram Perez MD 06/25/2018 02:34 P
[2018-06-25] MEDS ORDERED: ATOR40TA75 PO (16:30)
[2018-06-25] MEDS ORDERED: MONT10TA2 PO (16:30)
[2018-06-25] MEDS ORDERED: INCR1INH INH (16:30)
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
[2018-06-25] MEDS: LevoFLOXacin IV 500 MG in APPROPRIATE DILUENT 1 EA IV SCH (18:39)
--- NOTE | 2018-06-25 19:22 | ECGEPIP ---
Stationary ECG Study [facility] - ED Test Date: 2018-06-25 Pat Name: YAMINI DUNNE Department: Room: - Gender: F Casting Sorter: : 1945 Requested By: FERN Crooks Order Number: [id number] Reading MD: Juan Daniel Manzano Measurements Intervals [place] Rate: 106 P: 91 MA: 158 QRS: 58 QRSD: 70 T: 51 QT: 345 QTc: 459 Interpretive Statements SINUS TACHYCARDIA ABNORMAL RHYTHM ECG NONSPECIFIC ST T WAVE CHNAGES PROLONGED QTC INCOMPLETE RBBB POOR R WAVE PROGRESSION CW 09/02/[address] T WAVE CHANGES Electronically Signed On 06-25-2018 19:22:03 EST by Juan Daniel Manzano
[2018-06-25] MEDS: ADVAIR HFA 230/21MCG INHALER INH SCH (21:00)
[2018-06-25] MEDS: ATORVASTATIN 20 MG TAB PO SCH (21:00)
[2018-06-25] MEDS: MONTELUKAST 10 MG TAB PO SCH (21:00)
[2018-06-25] MEDS: LATANOPROST 0.005% OPHTH SOLN 2.5 ML OU SCH (21:00)
[2018-06-25 21:20] VITALS: BP 156/80
[2018-06-25] MEDS: methylPREDNISolone INJ 40 MG/1 ML VIAL (J2920) IV SCH (22:00)
[2018-06-26] MEDS ORDERED: GLUCOSE 4 GM CHEW TABLET PO PRN (01:30)
[2018-06-26] MEDS ORDERED: GLUCAGON FOR INJ 1 MG VIAL (J1610) SC PRN (01:30)
[2018-06-26] MEDS ORDERED: DEXTROSE 50% 50 ML SYRINGE IV PRN (01:30)
[2018-06-26] MEDS: IPRATROPIUM 0.5MG/ALBUTEROL 2.5MG INH SOL UD 3ML (DUONEB)(J7620) NEB PRN (05:31)
[2018-06-26] MEDS: methylPREDNISolone INJ 40 MG/1 ML VIAL (J2920) IV SCH ×3 (05:41→20:25)
[2018-06-26 06:00] VITALS: BP 152/81
[2018-06-26 06:21] LABS: HEMOGLOBIN 12.7 g/dl (12.0-15.5); LYMPH # 1.4 10^3/uL (1.5-4.5); LYMPH % 18.7 % (24.0-44.0); MEAN CORPUSCULAR HEMOGLOBIN 27.9 pg (27.0-33.0); MEAN CORPUSCULAR VOLUME 90.1 fl (80.0-96.0); MONO # 0.1 10^3/uL (0.0-0.8); MONO % 1.7 % (0.0-5.0); NEUTROPHILS # 5.7 10^3/uL (1.8-7.7); NEUTROPHILS % 79.3 % (36.0-66.0); PLATELET COUNT, AUTOMATED 283 10^3/uL (150-450); RED BLOOD COUNT 4.55 10^6/uL (4.00-5.40); WHITE BLOOD COUNT 7.2 10^3/uL (4.0-10.0)
[2018-06-26 07:09] LABS: BLOOD UREA NITROGEN 9 MG/DL (7-18); CALCIUM LEVEL 10.3 MG/DL (8.8-10.2); CARBON DIOXIDE LEVEL 32 MEQ/L (21-32); CHLORIDE LEVEL 105 MEQ/L (98-107); CREATININE FOR GFR 0.72 MG/DL (0.55-1.30); GLOMERULAR FILTRATION RATE > 60.0 (>39); GLUCOSE, FASTING 180 MG/DL (70-100); POTASSIUM SERUM 4.9 MEQ/L (3.5-5.1); SODIUM LEVEL 141 MEQ/L (136-145)
[2018-06-26] MEDS: amLODIPine 5 MG TAB PO SCH (09:09)
[2018-06-26] MEDS: HumaLOG INSULIN (NovoLOG) PER UNIT SC SCH ×4 (09:10→21:00)
[2018-06-26] MEDS: ASPIRIN 81 MG ENTERIC TAB PO SCH (09:10)
[2018-06-26] MEDS: VITAMIN D 1,000 INTERNATIONAL UNITS TABLET PO SCH (09:10)
[2018-06-26] MEDS: ENOXAPARIN 30 MG/0.3 ML SYR (J1650) SC SCH (09:11)
[2018-06-26] MEDS: ALBUTEROL SULFATE 2.5 MG/0.5 ML INH NEB SOLN NEB SCH ×2 (09:23→15:35)
[2018-06-26] MEDS: ADVAIR HFA 230/21MCG INHALER INH SCH ×2 (09:23→19:45)
[2018-06-26] MEDS: TIOTROPIUM INHALER/CAPSULE (SPIRIVA) INH SCH (09:24)
[2018-06-26 09:26] LABS: HEMOGLOBIN A1c 6.2 %
--- NOTE | 2018-06-26 11:50 | IPNPDOC ---
Text Note Date of Service The patient was seen on 06/26/18. NOTE SUBJECTIVE: Sob is improving but still not back to baseline. Continues to have severe bouts of coughing. still requiring greater than her normal level of oxygen. VITAL SIGNS: As Below. HEAD: Atraumatic, normocephalic. NECK: Supple. No jugular venous distention (JVD). LUNGS: Late expiratory wheezes bilaterally. HEART: S1, S2 audible. No murmurs appreciated. ABDOMEN: Soft. Positive bowel sounds. No pedal edema. SKIN: Intact. NEUROLOGIC: Patient awake, alert, oriented times three. LABS and RADIOLOGY: Reviewed ASSESSMENT and PLAN: A 73-year-old female with a past medical history of hyperlipidemia, diabetes diet controlled, gets worse when on steroids. oxygen-dependent chronic obstructive pulmonary disease (COPD) requiring 2 liters nasal cannula presents to the emergency room with shortness of breath, approximately 3 days, with cough productive of yellow sputum, unrelieved by nebulizer treatments and her oxygen therapy. In the emergency room (ER) she was not hypoxic; however, after 3 nebulizers and 125 of Solu-Medrol, she was still very short of breath subjectively. Chest x-ray did not show any acute consolidation. She was admitted for Copd exacerbation. GOLD stage IV COPD exacerbation continue albuterol, advair, spiriva, methyl pred and levofloxacin oxygen Bronchiectasis with calcified granulomas. with acute bronchitis will continue levofloxacin Chronic hypoxic respiratory failure continue with oxygen supplementation try to wean as tolerated. uses 2L at home. Hyperlipidemia continue statin Hypertension not known hypertensive but blood pressures noted to be persistently high in hospital will start on amlodipine Diabetes not on any home meds at present will check AIC was normal in january. sugars rise during sterid therapy. Glaucoma continue home eye drops Multinodular goiter no issues History of iron deficiency anemia. HH stable. DVT prophylaxis ordered VS,Fishbone, I+O VS, Fishbone, I+O Laboratory Tests 06/25/18 13:57 Red Blood Count 4.57, Mean Corpuscular Volume 90.6, Mean Corpuscular Hemoglobin 28.2, Mean Corpuscular Hemoglobin Concent 31.2 L, Red Cell Distribution Width 13.2, Neutrophils (%) (Auto) 66.8 H, Lymphocytes (%) (Auto) 24.5, Monocytes (%) (Auto) 6.5 H, Eosinophils (%) (Auto) 1.4, Basophils (%) (Auto) 0.5, Neutrophils # (Auto) 5.1, Lymphocytes # (Auto) 1.9, Monocytes # (Auto) 0.5, Eosinophils # (Auto) 0.1, Basophils # (Auto) 0.0 06/26/18 06:03 Red Blood Count 4.55, Mean Corpuscular Volume 90.1, Mean Corpuscular Hemoglobin 27.9, Mean Corpuscular Hemoglobin Concent 31.0 L, Red Cell Distribution Width 13.2, Neutrophils (%) (Auto) 79.3 H, Lymphocytes (%) (Auto) 18.7 L, Monocytes (%) (Auto) 1.7, Eosinophils (%) (Auto) 0.0, Basophils (%) (Auto) 0.0, Neutrophils # (Auto) 5.7, Lymphocytes # (Auto) 1.4 L, Monocytes # (Auto) 0.1, Eosinophils # (Auto) 0.0, Basophils # (Auto) 0.0, Calcium Level 10.3 H Vital Signs Date Time Temp Pulse Resp B/P (MAP) Pulse Ox O2 Delivery O2 Flow Rate FiO2 06/26/18 06:00 98.5 96 22 152/81 (104) 95 4.0 06/25/18 20:00 Nasal Cannula 06/25/18 13:45 100 I&O- Last 24 Hours up to 6 AM 06/26/18 06:00 Intake Total 500 ml Output Total 1750 ml Balance -1250 ml ARCELIA KESSLER MD Jun 26, 2018 08:32
[2018-06-26] MEDS: CEPACOL LOZENGE PO PRN ×2 (12:35→17:48)
[2018-06-26 14:00] VITALS: BP 165/75
[2018-06-26] MEDS: DEXTROMETHORPHAN 60MG/10ML SUSP 90ML BTL(DELSYM) PO PRN (14:21)
[2018-06-26] MEDS: LevoFLOXacin IV 500 MG in APPROPRIATE DILUENT 1 EA IV SCH (17:46)
[2018-06-26] MEDS: LATANOPROST 0.005% OPHTH SOLN 2.5 ML OU SCH (20:25)
[2018-06-26] MEDS: MONTELUKAST 10 MG TAB PO SCH (20:25)
[2018-06-26] MEDS: ATORVASTATIN 20 MG TAB PO SCH (20:25)
[2018-06-26 22:00] VITALS: BP 153/75
[2018-06-27] MEDS: CEPACOL LOZENGE PO PRN ×2 (00:05→21:11)
[2018-06-27] MEDS: ALBUTEROL SULFATE 2.5 MG/0.5 ML INH NEB SOLN NEB SCH ×4 (00:05→22:35)
[2018-06-27] MEDS: DEXTROMETHORPHAN 60MG/10ML SUSP 90ML BTL(DELSYM) PO PRN ×2 (05:44→21:40)
[2018-06-27] MEDS: methylPREDNISolone INJ 40 MG/1 ML VIAL (J2920) IV SCH ×3 (05:44→21:11)
[2018-06-27 06:00] VITALS: BP 159/80
[2018-06-27 06:49] LABS: BASO % 0.1 % (0.0-1.0); HEMATOCRIT 36.2 % (36.0-47.0); HEMOGLOBIN 11.6 g/dl (12.0-15.5); LYMPH # 1.4 10^3/uL (1.5-4.5); LYMPH % 7.9 % (24.0-44.0); MEAN CORPUSCULAR HEMOGLOBIN 28.2 pg (27.0-33.0); MEAN CORPUSCULAR VOLUME 87.9 fl (80.0-96.0); MONO # 0.9 10^3/uL (0.0-0.8); NEUTROPHILS % 86.5 % (36.0-66.0); PLATELET COUNT, AUTOMATED 303 10^3/uL (150-450); RED BLOOD COUNT 4.12 10^6/uL (4.00-5.40); WHITE BLOOD COUNT 17.3 10^3/uL (4.0-10.0)
[2018-06-27 07:00] LABS: BLOOD UREA NITROGEN 13 MG/DL (7-18); CALCIUM LEVEL 9.8 MG/DL (8.8-10.2); CARBON DIOXIDE LEVEL 28 MEQ/L (21-32); CHLORIDE LEVEL 105 MEQ/L (98-107); CREATININE FOR GFR 0.66 MG/DL (0.55-1.30); GLOMERULAR FILTRATION RATE > 60.0 (>39); GLUCOSE, FASTING 173 MG/DL (70-100); POTASSIUM SERUM 4.2 MEQ/L (3.5-5.1); SODIUM LEVEL 140 MEQ/L (136-145)
[2018-06-27] MEDS: TIOTROPIUM INHALER/CAPSULE (SPIRIVA) INH SCH (07:45)
[2018-06-27] MEDS: ADVAIR HFA 230/21MCG INHALER INH SCH ×2 (07:45→21:17)
[2018-06-27] MEDS: ENOXAPARIN 30 MG/0.3 ML SYR (J1650) SC SCH (08:21)
[2018-06-27] MEDS: amLODIPine 5 MG TAB PO SCH (08:21)
[2018-06-27] MEDS: VITAMIN D 1,000 INTERNATIONAL UNITS TABLET PO SCH (08:21)
[2018-06-27] MEDS: ASPIRIN 81 MG ENTERIC TAB PO SCH (08:21)
[2018-06-27] MEDS: HumaLOG INSULIN (NovoLOG) PER UNIT SC SCH ×4 (08:22→20:35)
--- NOTE | 2018-06-27 13:21 | IPNPDOC ---
Text Note Date of Service The patient was seen on 06/27/18. NOTE SUBJECTIVE: Sob is improving but still not back to baseline. Continues to have severe bouts of coughing. still requiring greater than her normal level of oxygen. VITAL SIGNS: As Below. HEAD: Atraumatic, normocephalic. NECK: Supple. No jugular venous distention (JVD). LUNGS: Late expiratory wheezes bilaterally. HEART: S1, S2 audible. No murmurs appreciated. ABDOMEN: Soft. Positive bowel sounds. No pedal edema. SKIN: Intact. NEUROLOGIC: Patient awake, alert, oriented times three. LABS and RADIOLOGY: Reviewed ASSESSMENT and PLAN: A 73-year-old female with a past medical history of hyperlipidemia, diabetes diet controlled, gets worse when on steroids. oxygen-dependent chronic obstructive pulmonary disease (COPD) requiring 2 liters nasal cannula presents to the emergency room with shortness of breath, approximately 3 days, with cough productive of yellow sputum, unrelieved by nebulizer treatments and her oxygen therapy. In the emergency room (ER) she was not hypoxic; however, after 3 nebulizers and 125 of Solu-Medrol, she was still very short of breath subjectively. Chest x-ray did not show any acute consolidation. She was admitted for Copd exacerbation. Respiratory viral infection due to adenovirus/ Human rhinovirus infection continue droplet precautions. GOLD stage IV COPD exacerbation Due to Adenovirus infection continue albuterol, advair, spiriva, methyl pred and levofloxacin oxygen Bronchiectasis with calcified granulomas. with acute bronchitis sputum with a few of pseudomonas will continue levofloxacin Chronic hypoxic respiratory failure continue with oxygen supplementation try to wean as tolerated. uses 2L at home. Hyperlipidemia continue statin Hypertension not known hypertensive but blood pressures noted to be persistently high in hospital will start on amlodipine Diabetes not on any home meds at present will check AIC was normal in january. sugars rise during sterid therapy. Glaucoma continue home eye drops Multinodular goiter no issues History of iron deficiency anemia. HH stable. DVT prophylaxis ordered VS,Fishbone, I+O VS, Fishbone, I+O Laboratory Tests 06/27/18 06:32 Red Blood Count 4.12, Mean Corpuscular Volume 87.9, Mean Corpuscular Hemoglobin 28.2, Mean Corpuscular Hemoglobin Concent 32.0, Red Cell Distribution Width 13.1, Neutrophils (%) (Auto) 86.5 H, Lymphocytes (%) (Auto) 7.9 L, Monocytes (%) (Auto) 5.0, Eosinophils (%) (Auto) 0.0, Basophils (%) (Auto) 0.1, Neutrophils # (Auto) 15.0 H, Lymphocytes # (Auto) 1.4 L, Monocytes # (Auto) 0.9 H, Eosinophils # (Auto) 0.0, Basophils # (Auto) 0.0, Calcium Level 9.8 Vital Signs Date Time Temp Pulse Resp B/P (MAP) Pulse Ox O2 Delivery O2 Flow Rate FiO2 06/27/18 11:18 4.0 06/27/18 08:21 101 159/80 06/27/18 06:00 98.6 21 96 06/25/18 20:00 Nasal Cannula 06/25/18 13:45 100 I&O- Last 24 Hours up to 6 AM 06/27/18 06:00 Intake Total 1600 ml Output Total 2425 ml Balance -825 ml ARCELIA KESSLER MD Jun 27, 2018 13:21
[2018-06-27 14:00] VITALS: BP 139/74
[2018-06-27] MEDS: LevoFLOXacin IV 500 MG in APPROPRIATE DILUENT 1 EA IV SCH (18:46)
[2018-06-27] MEDS: MONTELUKAST 10 MG TAB PO SCH (20:32)
[2018-06-27] MEDS: ATORVASTATIN 20 MG TAB PO SCH (20:32)
[2018-06-27] MEDS: LATANOPROST 0.005% OPHTH SOLN 2.5 ML OU SCH (20:32)
[2018-06-27 22:00] VITALS: BP 142/89
[2018-06-28] MEDS: methylPREDNISolone INJ 40 MG/1 ML VIAL (J2920) IV SCH ×3 (05:10→21:43)
[2018-06-28 06:00] VITALS: BP 137/82
[2018-06-28 06:08] LABS: BASO % 0.1 % (0.0-1.0); HEMATOCRIT 36.8 % (36.0-47.0); HEMOGLOBIN 11.6 g/dl (12.0-15.5); LYMPH # 1.4 10^3/uL (1.5-4.5); LYMPH % 9.1 % (24.0-44.0); MEAN CORPUSCULAR HEMOGLOBIN 27.9 pg (27.0-33.0); MEAN CORPUSCULAR HGB CONC 31.5 g/dl (32.0-36.5); MEAN CORPUSCULAR VOLUME 88.5 fl (80.0-96.0); MONO # 0.7 10^3/uL (0.0-0.8); MONO % 4.2 % (0.0-5.0); NEUTROPHILS # 13.4 10^3/uL (1.8-7.7); NEUTROPHILS % 85.7 % (36.0-66.0); PLATELET COUNT, AUTOMATED 311 10^3/uL (150-450); RED BLOOD COUNT 4.16 10^6/uL (4.00-5.40); WHITE BLOOD COUNT 15.6 10^3/uL (4.0-10.0)
[2018-06-28 06:36] LABS: BLOOD UREA NITROGEN 17 MG/DL (7-18); CALCIUM LEVEL 9.4 MG/DL (8.8-10.2); CARBON DIOXIDE LEVEL 31 MEQ/L (21-32); CHLORIDE LEVEL 104 MEQ/L (98-107); CREATININE FOR GFR 0.67 MG/DL (0.55-1.30); GLOMERULAR FILTRATION RATE > 60.0 (>39); GLUCOSE, FASTING 184 MG/DL (70-100); POTASSIUM SERUM 4.1 MEQ/L (3.5-5.1); SODIUM LEVEL 141 MEQ/L (136-145)
[2018-06-28] MEDS: TIOTROPIUM INHALER/CAPSULE (SPIRIVA) INH SCH (07:38)
[2018-06-28] MEDS: ADVAIR HFA 230/21MCG INHALER INH SCH ×2 (07:38→20:33)
[2018-06-28] MEDS: ALBUTEROL SULFATE 2.5 MG/0.5 ML INH NEB SOLN NEB SCH ×3 (07:38→23:37)
[2018-06-28] MEDS: VITAMIN D 1,000 INTERNATIONAL UNITS TABLET PO SCH (08:55)
[2018-06-28] MEDS: ASPIRIN 81 MG ENTERIC TAB PO SCH (08:55)
[2018-06-28] MEDS: amLODIPine 5 MG TAB PO SCH (08:55)
[2018-06-28] MEDS: HumaLOG INSULIN (NovoLOG) PER UNIT SC SCH ×4 (08:56→21:00)
[2018-06-28] MEDS: ENOXAPARIN 30 MG/0.3 ML SYR (J1650) SC SCH (08:57)
[2018-06-28] MEDS: CEPACOL LOZENGE PO PRN ×2 (09:01→20:41)
--- NOTE | 2018-06-28 13:10 | IPNPDOC ---
Date Seen The patient was seen on 06/28/18. Progress Note SUBJECTIVE: sob is improved but still w campos. no fever or chills. sputum cx: pseudomonas. resp panel: adenovirus, rhinovirus no cough fever or chills. no nausea /vomiting. tolerating her diet. VITAL SIGNS: As Below. HEAD: Atraumatic, normocephalic. NECK: Supple. No jugular venous distention (JVD). LUNGS: Late expiratory wheezes bilaterally. HEART: S1, S2 audible. No murmurs appreciated. ABDOMEN: Soft. Positive bowel sounds. No pedal edema. SKIN: Intact. NEUROLOGIC: Patient awake, alert, oriented times three. LABS and RADIOLOGY: Reviewed ASSESSMENT and PLAN: A 73-year-old female with a past medical history of hyperlipidemia, diabetes diet controlled, gets worse when on steroids. oxygen-dependent chronic obstructive pulmonary disease (COPD) requiring 2 liters nasal cannula presents to the emergency room with shortness of breath, approximately 3 days, with cough productive of yellow sputum, unrelieved by nebulizer treatments and her oxygen therapy. In the emergency room (ER) she was not hypoxic; however, after 3 nebulizers and 125 of Solu-Medrol, she was still very short of breath subjectively. Chest x-ray did not show any acute consolidation. She was admitted for Copd exacerbation. Respiratory viral infection due to adenovirus/ Human rhinovirus infection continue droplet precautions. GOLD stage IV COPD exacerbation Due to Adenovirus , rhinovirus, pseudomonas infection continue albuterol, advair, spiriva, methyl pred and levofloxacin oxygen Bronchiectasis with calcified granulomas. with acute bronchitis sputum with a few of pseudomonas will continue levofloxacin pseudomonas colonization admission cxr: no infiltrate repeat cxr 06/28/18 pending on iv levaquin if worsens clinically with fever, worsening sob, double coverage with zosyn. Chronic hypoxic respiratory failure continue with oxygen supplementation try to wean as tolerated. uses 2L at home. Hyperlipidemia continue statin Hypertension not known hypertensive but blood pressures noted to be persistently high in hospital will start on amlodipine Diabetes not on any home meds at present will check AIC was normal in january. sugars rise during sterid therapy. Glaucoma continue home eye drops Multinodular goiter no issues History of iron deficiency anemia. HH stable. DVT prophylaxis ordered VS, I&O, 24H, Fishbone Vital Signs/I&O Vital Signs Date Time Temp Pulse Resp B/P (MAP) Pulse Ox O2 Delivery O2 Flow Rate FiO2 06/27/18 22:00 97.6 106 17 142/89 (106) 99 4.0 06/25/18 20:00 Nasal Cannula 06/25/18 13:45 100 I&O- Last 24 Hours up to 6 AM 06/28/18 06:00 Intake Total 930 ml Output Total 2150 ml Balance -1220 ml Laboratory Data 24H LABS Laboratory Tests 2 06/27/18 06:32: Immature Granulocyte % (Auto) 0.5, White Blood Count 17.3H, Red Blood Count 4.12, Hemoglobin 11.6L, Hematocrit 36.2, Mean Corpuscular Volume 87.9, Mean Corpuscular Hemoglobin 28.2, Mean Corpuscular Hemoglobin Concent 32.0, Red Cell Distribution Width 13.1, Platelet Count 303, Neutrophils (%) (Auto) 86.5H, Lymphocytes (%) (Auto) 7.9L, Monocytes (%) (Auto) 5.0, Eosinophils (%) (Auto) 0.0, Basophils (%) (Auto) 0.1, Neutrophils # (Auto) 15.0H, Lymphocytes # (Auto) 1.4L, Monocytes # (Auto) 0.9H, Eosinophils # (Auto) 0.0, Basophils # (Auto) 0.0, Nucleated Red Blood Cells % (auto) 0.0, Anion Gap 7L, Glomerular Filtration Rate > 60.0, Blood Urea Nitrogen 13, Creatinine 0.66, Sodium Level 140, Potassium Level 4.2, Chloride Level 105, Carbon Dioxide Level 28, Calcium Level 9.8 06/27/18 11:32: Bedside Glucose (Misc Panel) 138H 06/27/18 16:31: Bedside Glucose (Misc Panel) 167H CBC/BMP Laboratory Tests 06/27/18 06:32 Red Blood Count 4.12, Mean Corpuscular Volume 87.9, Mean Corpuscular Hemoglobin 28.2, Mean Corpuscular Hemoglobin Concent 32.0, Red Cell Distribution Width 13.1, Neutrophils (%) (Auto) 86.5 H, Lymphocytes (%) (Auto) 7.9 L, Monocytes (%) (Auto) 5.0, Eosinophils (%) (Auto) 0.0, Basophils (%) (Auto) 0.1, Neutrophils # (Auto) 15.0 H, Lymphocytes # (Auto) 1.4 L, Monocytes # (Auto) 0.9 H, Eosinophils # (Auto) 0.0, Basophils # (Auto) 0.0, Calcium Level 9.8 Microbiology Microbiology 06/25/18 Blood Culture - Preliminary, Resulted No Growth after 48 hours. All Specime... 06/25/18 Blood Culture - Preliminary, Resulted No Growth after 48 hours. All Specime... 06/25/18 Gram Stain - Final, Complete 06/25/18 Sputum Culture - Final, Complete Pseudomonas Aeruginosa 06/25/18 Respiratory Virus Panel (PCR) (AILYN) - Final, Complete Adenovirus Human Rhinovirus/Enterovirus MAIA TORRES MD Jun 28, 2018 04:25
[2018-06-28 14:00] VITALS: BP 159/78
--- NOTE | 2018-06-28 14:39 | REP ---
CHEST, TWO VIEWS: Two views of the chest are performed and compared to prior studies, most recently a portable chest, 06/25/2018. Once again, there is biapical pleural thickening with scattered tiny calcified granulomas bilaterally, as well as chronic parenchymal opacities, predominantly interstitial in nature. No new infiltrate is seen. Heart is not enlarged. There is calcification of the thoracic aorta. A right paratracheal calcified lymph node is unchanged. There is osteopenia with mild degenerative changes of the spine. IMPRESSION: Chronic pleural and parenchymal findings. No acute infiltrate identified. Electronically Signed by Doe Nevarez MD 06/29/2018 09:56 A
[2018-06-28] MEDS: DEXTROMETHORPHAN 60MG/10ML SUSP 90ML BTL(DELSYM) PO PRN (16:51)
[2018-06-28] MEDS: LevoFLOXacin IV 500 MG in APPROPRIATE DILUENT 1 EA IV SCH (18:20)
[2018-06-28] MEDS: LATANOPROST 0.005% OPHTH SOLN 2.5 ML OU SCH (20:36)
[2018-06-28] MEDS: ATORVASTATIN 20 MG TAB PO SCH (20:36)
[2018-06-28] MEDS: MONTELUKAST 10 MG TAB PO SCH (20:36)
[2018-06-28 22:00] VITALS: BP 144/77
[2018-06-29] MEDS: methylPREDNISolone INJ 40 MG/1 ML VIAL (J2920) IV SCH (05:24)
[2018-06-29] MEDS: CEPACOL LOZENGE PO PRN (05:24)
[2018-06-29] MEDS: DEXTROMETHORPHAN 60MG/10ML SUSP 90ML BTL(DELSYM) PO PRN (05:43)
[2018-06-29 06:00] VITALS: BP 138/66
[2018-06-29 06:32] LABS: BASO % 0.2 % (0.0-1.0); HEMATOCRIT 39.5 % (36.0-47.0); HEMOGLOBIN 12.4 g/dl (12.0-15.5); LYMPH # 1.3 10^3/uL (1.5-4.5); MEAN CORPUSCULAR HEMOGLOBIN 28.2 pg (27.0-33.0); MEAN CORPUSCULAR HGB CONC 31.4 g/dl (32.0-36.5); MEAN CORPUSCULAR VOLUME 89.8 fl (80.0-96.0); MONO # 0.5 10^3/uL (0.0-0.8); NEUTROPHILS # 9.8 10^3/uL (1.8-7.7); NEUTROPHILS % 83.6 % (36.0-66.0); PLATELET COUNT, AUTOMATED 310 10^3/uL (150-450); WHITE BLOOD COUNT 11.7 10^3/uL (4.0-10.0)
[2018-06-29 06:51] LABS: BLOOD UREA NITROGEN 18 MG/DL (7-18); CALCIUM LEVEL 9.9 MG/DL (8.8-10.2); CARBON DIOXIDE LEVEL 29 MEQ/L (21-32); CHLORIDE LEVEL 105 MEQ/L (98-107); CREATININE FOR GFR 0.59 MG/DL (0.55-1.30); GLOMERULAR FILTRATION RATE > 60.0 (>39); GLUCOSE, FASTING 179 MG/DL (70-100); POTASSIUM SERUM 4.2 MEQ/L (3.5-5.1); SODIUM LEVEL 141 MEQ/L (136-145)
[2018-06-29] MEDS ORDERED: predniSONE 20 MG TAB PO ONE (07:30)
[2018-06-29] MEDS: TIOTROPIUM INHALER/CAPSULE (SPIRIVA) INH SCH (07:48)
[2018-06-29] MEDS: ADVAIR HFA 230/21MCG INHALER INH SCH ×2 (07:48→20:53)
[2018-06-29] MEDS: ALBUTEROL SULFATE 2.5 MG/0.5 ML INH NEB SOLN NEB SCH ×3 (08:00→20:53)
[2018-06-29] MEDS: ASPIRIN 81 MG ENTERIC TAB PO SCH (08:16)
[2018-06-29] MEDS: VITAMIN D 1,000 INTERNATIONAL UNITS TABLET PO SCH (08:16)
[2018-06-29] MEDS: amLODIPine 5 MG TAB PO SCH (08:16)
[2018-06-29] MEDS: HumaLOG INSULIN (NovoLOG) PER UNIT SC SCH ×4 (08:17→21:00)
[2018-06-29] MEDS: ENOXAPARIN 30 MG/0.3 ML SYR (J1650) SC SCH (08:17)
--- NOTE | 2018-06-29 11:45 | IPNPDOC ---
Date Seen The patient was seen on 06/29/18. Progress Note SUBJECTIVE: sputum cx: pseudomonas. resp panel: adenovirus, rhinovirus white count improved on levaquin. no fever but hypothermic 96.7 overnight. no worsening sob. still w cough productive of thick white sputum VITAL SIGNS: As Below. HEAD: Atraumatic, normocephalic. NECK: Supple. No jugular venous distention (JVD). LUNGS:diminished. clear HEART: S1, S2 audible. No murmurs appreciated. ABDOMEN: Soft. Positive bowel sounds. No pedal edema. SKIN: Intact. NEUROLOGIC: Patient awake, alert, oriented times three. LABS and RADIOLOGY: Reviewed ASSESSMENT and PLAN: A 73-year-old female with a past medical history of hyperlipidemia, diabetes diet controlled, gets worse when on steroids. oxygen-dependent chronic obstructive pulmonary disease (COPD) requiring 2 liters nasal cannula presents to the emergency room with shortness of breath, approximately 3 days, with cough productive of yellow sputum, unrelieved by nebulizer treatments and her oxygen therapy. In the emergency room (ER) she was not hypoxic; however, after 3 nebulizers and 125 of Solu-Medrol, she was still very short of breath subjectively. Chest x-ray did not show any acute consolidation. She was admitted for Copd exacerbation. Respiratory viral infection due to adenovirus/ Human rhinovirus infection continue droplet precautions. GOLD stage IV COPD exacerbation Due to Adenovirus , rhinovirus, pseudomonas infection continue albuterol, advair, spiriva, methyl pred and levofloxacin oxygen Bronchiectasis with calcified granulomas. with acute bronchitis sputum with a few of pseudomonas will continue levofloxacin pseudomonas in sputum cx. admission cxr: no infiltrate repeat cxr 06/28/18 pending on iv levaquin if worsens clinically with fever, worsening sob, double coverage with zosyn. Chronic hypoxic respiratory failure continue with oxygen supplementation try to wean as tolerated. uses 2L at home. Hyperlipidemia continue statin Hypertension not known hypertensive but blood pressures noted to be persistently high in hospital will start on amlodipine Diabetes not on any home meds at present will check AIC was normal in january. sugars rise during sterid therapy. Glaucoma continue home eye drops Multinodular goiter no issues History of iron deficiency anemia. HH stable. DVT prophylaxis ordered VS, I&O, 24H, Fishbone VS, I&O, 24H, Fishbone Vital Signs/I&O Vital Signs Date Time Temp Pulse Resp B/P (MAP) Pulse Ox O2 Delivery O2 Flow Rate FiO2 06/29/18 06:00 96.8 96 17 138/66 (90) 98 06/28/18 22:00 3.0 06/25/18 20:00 Nasal Cannula 06/25/18 13:45 100 I&O- Last 24 Hours up to 6 AM 06/29/18 06:00 Intake Total 1850 ml Output Total 400 ml Balance 1450 ml Laboratory Data 24H LABS Laboratory Tests 2 06/28/18 11:20: Bedside Glucose (Misc Panel) 155H 06/28/18 17:42: Bedside Glucose (Misc Panel) 165H 06/28/18 20:19: Bedside Glucose (Misc Panel) 183H 06/29/18 05:58: Immature Granulocyte % (Auto) 1.2, White Blood Count 11.7H, Red Blood Count 4.40 , Hemoglobin 12.4, Hematocrit 39.5, Mean Corpuscular Volume 89.8, Mean Corpuscular Hemoglobin 28.2, Mean Corpuscular Hemoglobin Concent 31.4L, Red Cell Distribution Width 13.1, Platelet Count 310, Neutrophils (%) (Auto) 83.6H, Lymphocytes (%) (Auto) 11.0L, Monocytes (%) (Auto) 4.0, Eosinophils (%) (Auto) 0.0, Basophils (%) (Auto) 0.2, Neutrophils # (Auto) 9.8H, Lymphocytes # (Auto) 1.3L, Monocytes # (Auto) 0.5, Eosinophils # (Auto) 0.0, Basophils # (Auto) 0.0, Nucleated Red Blood Cells % (auto) 0.0, Anion Gap 7L, Glomerular Filtration Rate > 60.0, Blood Urea Nitrogen 18, Creatinine 0.59, Sodium Level 141, Potassium Level 4.2, Chloride Level 105, Carbon Dioxide Level 29, Calcium Level 9.9 CBC/BMP Laboratory Tests 06/29/18 05:58 Red Blood Count 4.40, Mean Corpuscular Volume 89.8, Mean Corpuscular Hemoglobin 28.2, Mean Corpuscular Hemoglobin Concent 31.4 L, Red Cell Distribution Width 13.1, Neutrophils (%) (Auto) 83.6 H, Lymphocytes (%) (Auto) 11.0 L, Monocytes (%) (Auto) 4.0, Eosinophils (%) (Auto) 0.0, Basophils (%) (Auto) 0.2, Neutrophils # (Auto) 9.8 H, Lymphocytes # (Auto) 1.3 L, Monocytes # (Auto) 0.5, Eosinophils # (Auto) 0.0, Basophils # (Auto) 0.0, Calcium Level 9.9 Microbiology Microbiology 06/25/18 Blood Culture - Preliminary, Resulted No Growth after 72 hours. All specime... 06/25/18 Blood Culture - Preliminary, Resulted No Growth after 72 hours. All specime... 06/25/18 Gram Stain - Final, Complete 06/25/18 Sputum Culture - Final, Complete Pseudomonas Aeruginosa 06/25/18 Respiratory Virus Panel (PCR) (AILYN) - Final, Complete Adenovirus Human Rhinovirus/Enterovirus MAIA TORRES MD Jun 29, 2018 07:26
[2018-06-29 14:00] VITALS: BP 156/60
[2018-06-29] MEDS: LevoFLOXacin 500 MG TABLET PO SCH (18:12)
[2018-06-29] MEDS: MONTELUKAST 10 MG TAB PO SCH (20:30)
[2018-06-29] MEDS: LATANOPROST 0.005% OPHTH SOLN 2.5 ML OU SCH (20:30)
[2018-06-29] MEDS: ATORVASTATIN 20 MG TAB PO SCH (20:30)
[2018-06-29 22:00] VITALS: BP 150/87
[2018-06-29] MEDS: IPRATROPIUM 0.5MG/ALBUTEROL 2.5MG INH SOL UD 3ML (DUONEB)(J7620) NEB PRN (23:20)
[2018-06-30 06:00] VITALS: BP 137/82
[2018-06-30 07:11] LABS: BASO % 0.2 % (0.0-1.0); EOS % 0.1 % (0.0-3.0); HEMATOCRIT 37.9 % (36.0-47.0); LYMPH # 2.8 10^3/uL (1.5-4.5); LYMPH % 22.7 % (24.0-44.0); MEAN CORPUSCULAR HEMOGLOBIN 27.8 pg (27.0-33.0); MEAN CORPUSCULAR HGB CONC 31.7 g/dl (32.0-36.5); MEAN CORPUSCULAR VOLUME 87.7 fl (80.0-96.0); MONO # 1.2 10^3/uL (0.0-0.8); MONO % 10.1 % (0.0-5.0); NEUTROPHILS # 8.1 10^3/uL (1.8-7.7); NEUTROPHILS % 65.8 % (36.0-66.0); PLATELET COUNT, AUTOMATED 321 10^3/uL (150-450); RED BLOOD COUNT 4.32 10^6/uL (4.00-5.40); WHITE BLOOD COUNT 12.2 10^3/uL (4.0-10.0)
[2018-06-30 07:38] LABS: BLOOD UREA NITROGEN 17 MG/DL (7-18); CALCIUM LEVEL 9.6 MG/DL (8.8-10.2); CARBON DIOXIDE LEVEL 34 MEQ/L (21-32); CHLORIDE LEVEL 104 MEQ/L (98-107); CREATININE FOR GFR 0.63 MG/DL (0.55-1.30); GLOMERULAR FILTRATION RATE > 60.0 (>39); GLUCOSE, FASTING 125 MG/DL (70-100); POTASSIUM SERUM 3.9 MEQ/L (3.5-5.1); SODIUM LEVEL 143 MEQ/L (136-145)
[2018-06-30 08:00] VITALS: BP 146/82
[2018-06-30] MEDS: ALBUTEROL SULFATE 2.5 MG/0.5 ML INH NEB SOLN NEB SCH ×2 (08:00→17:20)
[2018-06-30] MEDS: TIOTROPIUM INHALER/CAPSULE (SPIRIVA) INH SCH (08:19)
[2018-06-30] MEDS: ADVAIR HFA 230/21MCG INHALER INH SCH ×2 (08:19→21:10)
[2018-06-30] MEDS: ASPIRIN 81 MG ENTERIC TAB PO SCH (09:02)
[2018-06-30] MEDS: amLODIPine 5 MG TAB PO SCH (09:04)
[2018-06-30] MEDS: VITAMIN D 1,000 INTERNATIONAL UNITS TABLET PO SCH (09:05)
[2018-06-30] MEDS: predniSONE 20 MG TAB PO SCH (09:05)
[2018-06-30] MEDS: ENOXAPARIN 30 MG/0.3 ML SYR (J1650) SC SCH (09:07)
[2018-06-30] MEDS: HumaLOG INSULIN (NovoLOG) PER UNIT SC SCH ×4 (09:07→21:00)
[2018-06-30] MEDS: DEXTROMETHORPHAN 60MG/10ML SUSP 90ML BTL(DELSYM) PO PRN (11:40)
[2018-06-30] MEDS: CEPACOL LOZENGE PO PRN (11:53)
--- NOTE | 2018-06-30 13:02 | IPNPDOC ---
Date Seen The patient was seen on 06/30/18. Progress Note SUBJECTIVE: she c/o BURR while working with physical [employer] with some wheezing after changed to po prednisone on 06/29/18 sputum cx: pseudomonas. resp panel: adenovirus, rhinovirus white count improved on levaquin. no worsening sob. still w cough productive of thick white sputum VITAL SIGNS: As Below. HEAD: Atraumatic, normocephalic. NECK: Supple. No jugular venous distention (JVD). LUNGS:diminished. occasional expiratory wheeze. HEART: S1, S2 audible. No murmurs appreciated. ABDOMEN: Soft. Positive bowel sounds. No pedal edema. SKIN: Intact. NEUROLOGIC: Patient awake, alert, oriented times three. LABS and RADIOLOGY: Reviewed ASSESSMENT and PLAN: A 73-year-old female with a past medical history of hyperlipidemia, diabetes diet controlled, gets worse when on steroids. oxygen-dependent chronic obstructive pulmonary disease (COPD) requiring 2 liters nasal cannula presents to the emergency room with shortness of breath, approximately 3 days, with cough productive of yellow sputum, unrelieved by nebulizer treatments and her oxygen therapy. In the emergency room (ER) she was not hypoxic; however, after 3 nebulizers and 125 of Solu-Medrol, she was still very short of breath subjectively. Chest x-ray did not show any acute consolidation. She was admitted for Copd exacerbation. Respiratory viral infection due to adenovirus/ Human rhinovirus infection continue droplet precautions. GOLD stage IV COPD exacerbation Due to Adenovirus , rhinovirus, pseudomonas infection continue albuterol, advair, spiriva, methyl pred and levofloxacin oxygen Bronchiectasis with calcified granulomas. with acute bronchitis sputum with a few of pseudomonas will continue levofloxacin pseudomonas in sputum cx. admission cxr: no infiltrate repeat cxr 06/28/18 pending on iv levaquin if worsens clinically with fever, worsening sob, double coverage with zosyn. Chronic hypoxic respiratory failure continue with oxygen supplementation try to wean as tolerated. uses 2L at home. Hyperlipidemia continue statin Hypertension not known hypertensive but blood pressures noted to be persistently high in hospital will start on amlodipine Diabetes not on any home meds at present will check AIC was normal in january. sugars rise during sterid therapy. Glaucoma continue home eye drops Multinodular goiter no issues History of iron deficiency anemia. HH stable. DVT prophylaxis ordered VS, I&O, 24H, Fishbone Vital Signs/I&O Vital Signs Date Time Temp Pulse Resp B/P (MAP) Pulse Ox O2 Delivery O2 Flow Rate FiO2 06/30/18 09:45 2.0 06/30/18 09:04 98 146/82 06/30/18 08:00 96.9 18 88 06/25/18 20:00 Nasal Cannula 06/25/18 13:45 100 I&O- Last 24 Hours up to 6 AM 06/30/18 06:00 Intake Total 1156 ml Output Total 2960 ml Balance -1804 ml Laboratory Data 24H LABS Laboratory Tests 2 06/29/18 16:28: Bedside Glucose (Misc Panel) 144H 06/29/18 21:02: Bedside Glucose (Misc Panel) 211H 06/30/18 07:00: Immature Granulocyte % (Auto) 1.1, White Blood Count 12.2H, Red Blood Count 4.32, Hemoglobin 12.0, Hematocrit 37.9, Mean Corpuscular Volume 87.7, Mean Corpuscular Hemoglobin 27.8, Mean Corpuscular Hemoglobin Concent 31.7L, Red Cell Distribution Width 13.1, Platelet Count 321, Neutrophils (%) (Auto) 65.8, Lymphocytes (%) (Auto) 22.7L, Monocytes (%) (Auto) 10.1H, Eosinophils (%) (Auto) 0.1, Basophils (%) (Auto) 0.2, Neutrophils # (Auto) 8.1H, Lymphocytes # (Auto) 2.8, Monocytes # (Auto) 1.2H, Eosinophils # (Auto) 0.0, Basophils # (Auto) 0.0, Nucleated Red Blood Cells % (auto) 0.0, Anion Gap 5L, Glomerular Filtration Rate > 60.0, Blood Urea Nitrogen 17, Creatinine 0.63, Sodium Level 143, Potassium Level 3.9, Chloride Level 104, Carbon Dioxide Level 34H, Calcium Level 9.6 06/30/18 11:32: Bedside Glucose (Misc Panel) 93 CBC/BMP Laboratory Tests 06/30/18 07:00 Red Blood Count 4.32, Mean Corpuscular Volume 87.7, Mean Corpuscular Hemoglobin 27.8, Mean Corpuscular Hemoglobin Concent 31.7 L, Red Cell Distribution Width 13.1, Neutrophils (%) (Auto) 65.8, Lymphocytes (%) (Auto) 22.7 L, Monocytes (%) (Auto) 10.1 H, Eosinophils (%) (Auto) 0.1, Basophils (%) (Auto) 0.2, Neutrophils # (Auto) 8.1 H, Lymphocytes # (Auto) 2.8, Monocytes # (Auto) 1.2 H, Eosinophils # (Auto) 0.0, Basophils # (Auto) 0.0, Calcium Level 9.6 Microbiology Microbiology 06/25/18 Blood Culture - Preliminary, Resulted No Growth after 72 hours. All specime... 06/25/18 Blood Culture - Preliminary, Resulted No Growth after 72 hours. All specime... 06/25/18 Gram Stain - Final, Complete 06/25/18 Sputum Culture - Final, Complete Pseudomonas Aeruginosa 06/25/18 Respiratory Virus Panel (PCR) (AILYN) - Final, Complete Adenovirus Human Rhinovirus/Enterovirus MAIA TORRES MD Jun 30, 2018 13:02
[2018-06-30 14:00] VITALS: BP 148/78
[2018-06-30] MEDS: LevoFLOXacin 500 MG TABLET PO SCH (17:42)
[2018-06-30] MEDS: ATORVASTATIN 20 MG TAB PO SCH (20:32)
[2018-06-30] MEDS: LATANOPROST 0.005% OPHTH SOLN 2.5 ML OU SCH (20:32)
[2018-06-30] MEDS: MONTELUKAST 10 MG TAB PO SCH (20:32)
[2018-06-30 22:00] VITALS: BP 149/76
[2018-07-01 05:50] LABS: BASO % 0.2 % (0.0-1.0); HEMOGLOBIN 12.5 g/dl (12.0-15.5); LYMPH # 1.5 10^3/uL (1.5-4.5); LYMPH % 14.2 % (24.0-44.0); MEAN CORPUSCULAR HEMOGLOBIN 27.9 pg (27.0-33.0); MEAN CORPUSCULAR HGB CONC 31.3 g/dl (32.0-36.5); MEAN CORPUSCULAR VOLUME 89.3 fl (80.0-96.0); MONO # 0.7 10^3/uL (0.0-0.8); MONO % 6.8 % (0.0-5.0); NEUTROPHILS # 8.2 10^3/uL (1.8-7.7); NEUTROPHILS % 77.6 % (36.0-66.0); PLATELET COUNT, AUTOMATED 308 10^3/uL (150-450); RED BLOOD COUNT 4.48 10^6/uL (4.00-5.40); WHITE BLOOD COUNT 10.6 10^3/uL (4.0-10.0)
[2018-07-01 06:00] VITALS: BP 158/84
[2018-07-01 06:13] LABS: BLOOD UREA NITROGEN 19 MG/DL (7-18); CALCIUM LEVEL 9.5 MG/DL (8.8-10.2); CARBON DIOXIDE LEVEL 33 MEQ/L (21-32); CHLORIDE LEVEL 104 MEQ/L (98-107); GLOMERULAR FILTRATION RATE > 60.0 (>39); GLUCOSE, FASTING 147 MG/DL (70-100); POTASSIUM SERUM 4.4 MEQ/L (3.5-5.1); SODIUM LEVEL 142 MEQ/L (136-145)
[2018-07-01] MEDS: ALBUTEROL SULFATE 2.5 MG/0.5 ML INH NEB SOLN NEB SCH ×2 (07:30)
[2018-07-01] MEDS: ADVAIR HFA 230/21MCG INHALER INH SCH (07:30)
[2018-07-01] MEDS: TIOTROPIUM INHALER/CAPSULE (SPIRIVA) INH SCH (07:30)
[2018-07-01 08:02] VITALS: BP 130/62
[2018-07-01 08:08] VITALS: BP 130/62
[2018-07-01] MEDS: amLODIPine 5 MG TAB PO SCH (08:08)
[2018-07-01] MEDS: HumaLOG INSULIN (NovoLOG) PER UNIT SC SCH ×2 (08:08→13:07)
[2018-07-01] MEDS: ASPIRIN 81 MG ENTERIC TAB PO SCH (08:09)
[2018-07-01] MEDS: ENOXAPARIN 30 MG/0.3 ML SYR (J1650) SC SCH (08:09)
[2018-07-01] MEDS: predniSONE 20 MG TAB PO SCH (08:09)
[2018-07-01] MEDS: VITAMIN D 1,000 INTERNATIONAL UNITS TABLET PO SCH (08:09)
[2018-07-01] MEDS ORDERED: PRED10TA2 PO (11:24)
[2018-07-01] MEDS ORDERED: AMLO5TAB6 PO (11:24)
[2018-07-01] MEDS ORDERED: LEVA1TAB2 PO (11:24)
[2018-07-01 14:00] VITALS: BP 162/85
--- NOTE | 2018-07-01 14:00 | DS.PDOC ---
Discharge Summary General Date of Admission Jun 28, 2018 at 04:25 Date of Discharge 07/01/18 Discharge Summary DISCHARGE DIAGNOSES: Respiratory viral infection due to adenovirus/ Human rhinovirus infection GOLD stage IV COPD exacerbation Due to Adenovirus , rhinovirus, pseudomonas infection Bronchiectasis with calcified granulomas. pseudomonas in sputum cx. Chronic hypoxic respiratory failure Hyperlipidemia Hypertension Diabetes Glaucoma Multinodular goiter History of iron deficiency anemia. DISCHARGE MEDS: PLS SEE BELOW HISTORY OF PRESENTING ILLNESS: A 73-year-old female with a past medical history of hyperlipidemia, diabetes diet controlled, gets worse when on steroids. oxygen-dependent chronic obstructive pulmonary disease (COPD) requiring 2 liters nasal cannula presents to the emergency room with shortness of breath, approximately 3 days, with cough productive of yellow sputum, unrelieved by nebulizer treatments and her oxygen therapy. In the emergency room (ER) she was not hypoxic; however, after 3 nebulizers and 125 of Solu-Medrol, she was still very short of breath subjectively. Chest x-ray did not show any acute consolidation. She was admitted for Copd exacerbation. HOSPITAL COURSE: Respiratory viral infection due to adenovirus/ Human rhinovirus infection continue droplet precautions. GOLD stage IV COPD exacerbation Due to Adenovirus , rhinovirus, pseudomonas infection continue albuterol, advair, spiriva, methyl pred and levofloxacin oxygen Bronchiectasis with calcified granulomas. with acute bronchitis sputum with a few of pseudomonas will continue levofloxacin pseudomonas in sputum cx. admission cxr: no infiltrate repeat cxr 06/28/18 pending on iv levaquin if worsens clinically with fever, worsening sob, double coverage with zosyn. Chronic hypoxic respiratory failure continue with oxygen supplementation try to wean as tolerated. uses 2L at home. Hyperlipidemia continue statin Hypertension not known hypertensive but blood pressures noted to be persistently high in hospital will start on amlodipine Diabetes not on any home meds at present will check AIC was normal in january. sugars rise during sterid therapy. Glaucoma continue home eye drops Multinodular goiter no issues History of iron deficiency anemia. HH stable. DVT prophylaxis ordered DISCHARGE PHYSICAL EXAMININATION: VITAL SIGNS: As Below. HEAD: Atraumatic, normocephalic. NECK: Supple. No jugular venous distention (JVD). LUNGS:diminished. occasional expiratory wheeze. HEART: S1, S2 audible. No murmurs appreciated. ABDOMEN: Soft. Positive bowel sounds. No pedal edema. SKIN: Intact. NEUROLOGIC: Patient awake, alert, oriented times three. DISCHARGE LABS MICROBIOLOGY and RADIOLOGY: Reviewed TIME SPENT ON DISCHARGE: 30 MIN Vital Signs/I&Os Vital Signs Date Time Temp Pulse Resp B/P (MAP) Pulse Ox O2 Delivery O2 Flow Rate FiO2 07/01/18 08:42 2.0 07/01/18 08:08 88 130/62 07/01/18 06:00 97.8 18 100 06/25/18 20:00 Nasal Cannula 06/25/18 13:45 100 I&O- Last 24 Hours up to 6 AM 07/01/18 06:00 Intake Total 1660 ml Output Total 2800 ml Balance -1140 ml Laboratory Data Labs 24H Laboratory Tests 2 06/30/18 17:28: Bedside Glucose (Misc Panel) 154H 06/30/18 21:10: Bedside Glucose (Misc Panel) 152H 07/01/18 05:35: Immature Granulocyte % (Auto) 1.2, White Blood Count 10.6H, Red Blood Count 4.48, Hemoglobin 12.5, Hematocrit 40.0, Mean Corpuscular Volume 89.3, Mean C orpuscular Hemoglobin 27.9, Mean Corpuscular Hemoglobin Concent 31.3L, Red Cell Distribution Width 13.2, Platelet Count 308, Neutrophils (%) (Auto) 77.6H, Lymphocytes (%) (Auto) 14.2L, Monocytes (%) (Auto) 6.8H, Eosinophils (%) (Auto) 0.0, Basophils (%) (Auto) 0.2, Neutrophils # (Auto) 8.2H, Lymphocytes # (Auto) 1.5, Monocytes # (Auto) 0.7, Eosinophils # (Auto) 0.0, Basophils # (Auto) 0.0, Nucleated Red Blood Cells % (auto) 0.0, Anion Gap 5L, Glomerular Filtration Rate > 60.0, Blood Urea Nitrogen 19H, Creatinine 0.70, Sodium Level 142, Potassium Level 4.4, Chloride Level 104, Carbon Dioxide Level 33H, Calcium Level 9.5 07/01/18 11:29: Bedside Glucose (Misc Panel) 151H CBC/BMP Laboratory Tests 07/01/18 05:35 Red Blood Count 4.48, Mean Corpuscular Volume 89.3, Mean Corpuscular Hemoglobin 27.9, Mean Corpuscular Hemoglobin Concent 31.3 L, Red Cell Distribution Width 13.2, Neutrophils (%) (Auto) 77.6 H, Lymphocytes (%) (Auto) 14.2 L, Monocytes (%) (Auto) 6.8 H, Eosinophils (%) (Auto) 0.0, Basophils (%) (Auto) 0.2, Neutrophils # (Auto) 8.2 H, Lymphocytes # (Auto) 1.5, Monocytes # (Auto) 0.7, Eosinophils # (Auto) 0.0, Basophils # (Auto) 0.0, Calcium Level 9.5 FSBS Laboratory Tests Test 06/30/18 17:28 06/30/18 21:10 07/01/18 11:29 Range/Units Bedside Glucose (Misc Panel) 154 152 151 83-110 MG/DL Microbiology Microbiology 06/25/18 Blood Culture - Final, Complete NO GROWTH AFTER 5 DAYS 06/25/18 Blood Culture - Final, Complete NO GROWTH AFTER 5 DAYS 06/25/18 Gram Stain - Final, Complete 06/25/18 Sputum Culture - Final, Complete Pseudomonas Aeruginosa 06/25/18 Respiratory Virus Panel (PCR) (AILYN) - Final, Complete Adenovirus Human Rhinovirus/Enterovirus Discharge Medications Scheduled (Simbrinza 1-0.2 %) 1 Yuki Yuki, 1 DROP OU BID, (Reported) (Incruse Ellipta) 62.5 Mcg/Inh Inh, 1 PUFF INH DAILY, (Reported) Amlodipine Besylate (Amlodipine Besylate) 5 Mg Tab, 5 MG PO DAILY Aspirin (Aspir-81) 81 Mg Tab, 81 MG PO DAILY, (Reported) Atorvastatin Calcium (Atorvastatin Calcium) 40 Mg Tab, 40 MG PO QHS, (Reported) Cholecalciferol (Vitamin D) 5,000 Unit Tab, 5,000 UNIT PO DAILY, (Reported) Levofloxacin Hemihydrate (Levaquin) 500 Mg Tab, 500 MG PO DAILY@1800 Montelukast Sodium (Montelukast Sodium) 10 Mg Tab, 10 MG PO QHS, (Reported) Prednisone (Prednisone) 10 Mg Tab, 10 MG PO TAPER Take 4 tabs daily x 3 days, then 3 tabs daily x 3 days, then 2 tabs daily x 3 days, then 1 tab daily x 3 days and stop Salmeterol/Fluticasone (Advair Diskus 500-50 Mcg/Dose) 28 Puff/Inhaler Aerp, 1 PUFF INH BID, (Reported) Travoprost (Travatan Z) 50 Drop/2.5 Ml Soln, 1 DROP OU QHS, (Reported) Scheduled PRN Albuterol/Ipratropium (Ipratropium [place]/Albut 0.5-2.5 (3) mg/3Ml) 1 Triny Triny, 1 VIAL INH QID PRN for SHORTNESS OF BREATH, (Reported) Allergies Coded Allergies: Penicillins (Unverified Allergy, Intermediate, WELTS/RASH, 08/01/12) Penicillins Cross Reactors (Unverified Allergy, Intermediate, WELTS/RASH, 08/01/12) MAIA TORRES MD Jul 01, 2018 13:59
== END 2018-07-01 14:34 | disposition home health service (06) | DRG 191 ==
LOC: M ED 13:24 → EDBD 13:24 → M ED INP 16:24 → M MSPAV 21:15 → INTOOBSV 06-28 04:25 → OBSVTOIN 06-28 04:25
PROVIDERS: ADMIT Internal Medicine; ATTEND General Practice
DX: J44.1 Chronic obstructive pulmonary disease with (acute) exacerbation (principal); J96.11 Chronic respiratory failure with hypoxia; J20.9 Acute bronchitis, unspecified; J44.0 Chronic obstructive pulmonary disease with (acute) lower respiratory infection; E78.5 Hyperlipidemia, unspecified; I10 Essential (primary) hypertension; B97.89 Other viral agents as the cause of diseases classified elsewhere; E11.9 Type 2 diabetes mellitus without complications; B96.5 Pseudomonas (aeruginosa) (mallei) (pseudomallei) as the cause of diseases classified elsewhere; D50.9 Iron deficiency anemia, unspecified; B97.0 Adenovirus as the cause of diseases classified elsewhere; E04.2 Nontoxic multinodular goiter; H40.9 Unspecified glaucoma; Z99.81 Dependence on supplemental oxygen; Z90.49 Acquired absence of other specified parts of digestive tract; Z79.82 Long term (current) use of aspirin; Z79.899 Other long term (current) drug therapy

== ENCOUNTER → 2018-10-11 | Outpatient (REF) | payer MEDICARE, MEDICAID ==
[~2018-10-11] MED LIST changes: -/ADVA50050 INH; -/ATOR40TA; -/ATOR40TA OR; -/ATOR40TA PO; -/GLIM2TA; -/GLIM2TA OR; -/GLIM2TA PO; -/MOXI40TA; -/MOXI40TA OR; -/MOXI40TA PO; +ADVA1AER2 INH; +AMAR1TAB5; +AMAR1TAB5 OR; +AMAR1TAB5 PO; +AMLO5TAB6 PO; +ATOR40TA75 PO; +AVEL1TAB2; +AVEL1TAB2 OR; +AVEL1TAB2 PO; +HYDR-3715 PO; +INCR1INH INH; +LEVA1TAB2 PO; +LIPI1TAB2; +LIPI1TAB2 OR; +LIPI1TAB2 PO; +MONT10TA2 PO; -NORCOTAB PO; +PRED-351 PO; -PRED10TA PO
[2018-10-11 16:32] LABS: ALBUMIN 3.7 GM/DL (3.2-5.2); ALT/SGPT 37 U/L (12-78); BILIRUBIN,TOTAL 0.3 MG/DL (0.2-1.0); BLOOD UREA NITROGEN 8 MG/DL (7-18); CALCIUM LEVEL 10.1 MG/DL (8.8-10.2); CARBON DIOXIDE LEVEL 31 MEQ/L (21-32); CHLORIDE LEVEL 105 MEQ/L (98-107); GLOMERULAR FILTRATION RATE > 60.0 (>39); GLUCOSE, FASTING 92 MG/DL (70-100); POTASSIUM SERUM 4.2 MEQ/L (3.5-5.1); SODIUM LEVEL 141 MEQ/L (136-145); THYROID STIMULATING HORMONE 0.715 uIU/ML (0.358-3.740); TOTAL PROTEIN 7.1 GM/DL (6.4-8.2)
[2018-10-11 16:41] LABS: HEMOGLOBIN A1c 6.3 %
== END ==
LOC: M SFHCPLAZ 13:47
PROVIDERS: ATTEND Nurse Practitioner Adult Health
DX: E11.9 Type 2 diabetes mellitus without complications (principal)

== ENCOUNTER → 2019-02-20 | Outpatient (REF) | payer MEDICARE, MEDICAID ==
[~2019-02-20] MED LIST changes: -GLIM2TAB PO; +GLIM2TAB2 PO
[2019-02-20 16:18] LABS: ALBUMIN 3.4 GM/DL (3.2-5.2); ALT/SGPT 33 U/L (12-78); BILIRUBIN,TOTAL 0.4 MG/DL (0.2-1.0); BLOOD UREA NITROGEN 7 MG/DL (7-18); CALCIUM LEVEL 10.1 MG/DL (8.8-10.2); CARBON DIOXIDE LEVEL 33 MEQ/L (21-32); CHLORIDE LEVEL 106 MEQ/L (98-107); CHOLESTEROL LEVEL 143 MG/DL (<200); CHOLESTEROL RISK RATIO 3.177 (<5); CREATININE FOR GFR 0.59 MG/DL (0.55-1.30); GLOMERULAR FILTRATION RATE > 60.0 (>39); GLUCOSE, FASTING 103 MG/DL (70-100); HDL CHOLESTEROL 45 MG/DL (>40); LDL CHOLESTEROL 73 MG/DL (<100); NON-HDL-C 98 MG/DL; POTASSIUM SERUM 4.3 MEQ/L (3.5-5.1); SODIUM LEVEL 141 MEQ/L (136-145); THYROID STIMULATING HORMONE 0.788 uIU/ML (0.358-3.740); TOTAL 25(OH) VITAMIN D 62.4 NG/ML (30.0-100.0); TOTAL PROTEIN 7.3 GM/DL (6.4-8.2); TRIGLYCERIDES LEVEL 127 MG/DL (<150)
[2019-02-20 16:27] LABS: HEMOGLOBIN A1c 6.2 %
== END ==
LOC: M SFHCPLAZ 13:55
PROVIDERS: ATTEND Nurse Practitioner Adult Health
DX: E11.9 Type 2 diabetes mellitus without complications (principal); E55.9 Vitamin D deficiency, unspecified; E78.2 Mixed hyperlipidemia

== ENCOUNTER 2019-06-05 13:15 | Inpatient (IN) | payer MEDICARE, MEDICAID ==
[~2019-06-05] VITALS: Ht 165.1 cm; Wt 65.4 kg
[~2019-06-05 13:15] MED LIST changes: -GLIM2TAB2 PO; +GLIM2TAB4 PO; -MONT10TA2 PO; +MONT10TA4 PO
[2019-06-05 14:28] LABS: BASO % 0.4 % (0.0-1.0); EOS # 0.2 10^3/uL (0.0-0.5); EOS % 1.7 % (0.0-3.0); HEMOGLOBIN 12.8 g/dl (12.0-15.5); LYMPH % 20.5 % (24.0-44.0); MEAN CORPUSCULAR HGB CONC 30.5 g/dl (32.0-36.5); MEAN CORPUSCULAR VOLUME 91.9 fl (80.0-96.0); MONO # 0.7 10^3/uL (0.0-0.8); MONO % 7.3 % (0.0-5.0); NEUTROPHILS # 6.6 10^3/uL (1.5-8.5); NEUTROPHILS % 69.9 % (36.0-66.0); PLATELET COUNT, AUTOMATED 238 10^3/uL (150-450); RED BLOOD COUNT 4.57 10^6/uL (4.00-5.40); WHITE BLOOD COUNT 9.5 10^3/uL (4.0-10.0)
[2019-06-05 14:42] LABS: INR 1.03; PARTIAL THROMBOPLASTIN TIME 26.9 SECONDS (25.0-38.4); PROTHROMBIN TIME 13.2 SECONDS (11.8-14.0)
--- NOTE | 2019-06-05 14:48 | REP ---
Clinical: Shortness of breath. Comparison: 06/28/2018. Findings: Mediastinum and cardiac silhouette as well as bilateral chronic pleuroparenchymal changes remain stable. No acute consolidation or effusion identified. Skeletal structures intact. Impression: Chronic stable changes. Electronically Signed by Aram Perez MD 06/05/2019 02:40 P
[2019-06-05] MEDS ORDERED: methylPREDNISolone INJ 125 MG/2 ML VIAL (J2930) IV ONE (15:00)
[2019-06-05] MEDS ORDERED: ALBUTEROL SULFATE 2.5 MG/0.5 ML INH NEB SOLN INH ONE (15:00)
[2019-06-05] MEDS ORDERED: IPRATROPIUM 0.5MG/ALBUTEROL 2.5MG INH SOL UD 3ML (DUONEB)(J7620) NEB ONE (15:00)
[2019-06-05 15:08] LABS: ALBUMIN 3.4 GM/DL (3.2-5.2); ALT/SGPT 35 U/L (12-78); BILIRUBIN,DIRECT 0.1 MG/DL (0.0-0.2); BILIRUBIN,TOTAL 0.2 MG/DL (0.2-1.0); BLOOD UREA NITROGEN 7 MG/DL (7-18); CALCIUM LEVEL 9.8 MG/DL (8.8-10.2); CARBON DIOXIDE LEVEL 33 MEQ/L (21-32); CHLORIDE LEVEL 105 MEQ/L (98-107); CK-MB VALUE MASS 1.1 NG/ML (<3.6); CPK CREATINE PHOSPHOKINASE 90 U/L (26-192); CREATININE FOR GFR 0.58 MG/DL (0.55-1.30); FREE T4 1.11 NG/DL (0.76-1.46); GLOMERULAR FILTRATION RATE > 60.0 (>39); GLUCOSE, FASTING 117 MG/DL (70-100); MB/CK RELATIVE INDEX 1.22 (< OR =4); NT-PRO BNP 120 PG/ML (<450); POTASSIUM SERUM 4.4 MEQ/L (3.5-5.1); SODIUM LEVEL 142 MEQ/L (136-145); THYROID STIMULATING HORMONE 0.977 uIU/ML (0.358-3.740); TOTAL PROTEIN 6.8 GM/DL (6.4-8.2); TROPONIN I < 0.02 NG/ML (< 0.10)
[2019-06-05 15:25] LABS: ABG BASE EXCESS 4.4 (-2.0-2.0); ABG HCO3 29.6 MEQ/L (22.0-26.0); ABG O2 SATURATION 98.7 % (95.0-99.0); ABG PARTIAL PRESSURE CO2 46.1 mmHg (35.0-45.0); ABG PARTIAL PRESSURE O2 132.3 mmHg (75.0-100.0); ABG STANDARD HCO3 28.5 MEQ/L (22.0-26.0); ABG pH (ARTERIAL) 7.425 UNITS (7.350-7.450)
[2019-06-05] MEDS ORDERED: LABETALOL HCL 100 MG/20 ML VIAL IV STA (17:49)
[2019-06-05] MEDS ORDERED: VITA100054 PO (17:49)
[2019-06-05] MEDS ORDERED: ISOVUE-370 76% 100ML VIAL (Q9967) As Ordered ONE (17:55)
[2019-06-05] MEDS ORDERED: LEVALBUTEROL 1.25 MG/0.5 ML CONCENTRATE NEB NEB PRN (18:00)
[2019-06-05] MEDS ORDERED: amLODIPine 10 MG TAB PO ONE (18:00)
[2019-06-05] MEDS ORDERED: hydrALAZINE INJ 20 MG/ML VIAL IV STA (18:21)
[2019-06-05] MEDS ORDERED: MORPHINE 2 MG/ML 1ML VIAL (J2270) IV ONE (18:30)
--- NOTE | 2019-06-05 18:57 | REPVR ---
PROCEDURE INFORMATION: Exam: CT Angiography Chest With Contrast Exam date and time: 06/05/2019 6:08 PM Age: 74 years old Clinical indication: Shortness of breath; Additional info: SOB TECHNIQUE: Imaging protocol: Computed tomographic angiography of the chest with intravenous contrast. 3D rendering: MIP and/or 3D reconstructed images were created by the technologist. Radiation optimization: All CT scans at this facility use at least one of these dose optimization techniques: automated exposure control; mA and/or kV adjustment per patient size (includes targeted exams where dose is matched to clinical indication); or iterative reconstruction. Contrast material: ISOVUE 370; Contrast volume: 75 ml; Contrast route: IV; COMPARISON: CT ANGIO CHEST 01/15/2017 12:58 PM FINDINGS: Pulmonary arteries: The main pulmonary artery measures 23 mm. No pulmonary embolism is identified. Aorta: The ascending thoracic aorta measures 28 mm. Lungs: Mild pulmonary hyperinflation. Mild scattered fibro-atelectatic change, greatest in the left lung, lingula and apices. There are scattered coarse interstitial markings and question of minimal reticulonodular infiltrate. Multiple scattered calcified granulomata. Pleural space: Unremarkable. No pneumothorax. No pleural effusion. Heart: Unremarkable. No cardiomegaly. No pericardial effusion. Liver: Splenic calcifications and hepatic calcifications. Gallbladder and bile ducts: Status post cholecystectomy. Adrenals: Question of left adrenal nodule measuring 8 mm. Lymph nodes: Unremarkable. No enlarged lymph nodes. Bones/joints: Unremarkable. No acute fracture. IMPRESSION: 1. Mild pulmonary hyperinflation with mild scattered fibro-atelectatic change, greatest in the left upper lobe, lingula and apices with scattered interstitial markings and question of minimal reticulonodular tree-in-bud infiltrates. 2. Old granulomatous disease of the chest, liver and spleen. 3. Status post cholecystectomy. 4. Otherwise negative CTA chest. No pulmonary embolism is identified. Electronically signed by: James Phillips On 06/05/2019 18:56:39 PM
--- NOTE | 2019-06-05 19:55 | ECGEPIP ---
[facility] - ED Test Date: 2019-06-05 Pat Name: YAMINI DUNNE Department: Room: - Gender: Female Car Lubricator: DES : 1945 Requested By: WILLIAM Lujan Order Number: [id number] Reading MD: Juan Daniel Manzano Measurements Intervals [place] Rate: 106 P: 89 AR: 154 QRS: 54 QRSD: 72 T: 42 QT: 366 QTc: 487 Interpretive Statements SINUS TACHYCARDIA ABNORMAL RHYTHM ECG NONSPECIFIC ST T WAVE CHANGES PROLONGED QTC CW 06/25/[address] T WAVE CHANGES Electronically Signed on 06-05-2019 19:54:54 EST by Juan Daniel Manzano
[2019-06-05] MEDS ORDERED: hydrALAZINE INJ 20 MG/ML VIAL IV PRN (20:00)
--- NOTE | 2019-06-05 20:22 | HPE ---
DATE OF ADMISSION: 06/05/2019 CHIEF COMPLAINT: Shortness of breath, dry cough. HISTORY OF PRESENT ILLNESS: This is a 74-year-old female with a history of chronic obstructive pulmonary disease (COPD) stage IV, history of adenovirus, rhinovirus and pseudomonas infection in the past, bronchiectasis with calcified granulomas, chronic hypoxic respiratory failure on 2 liters of home oxygen, hypertension, diabetes, hyperlipidemia, glaucoma, multinodular goiter, iron deficiency anemia, presents to the emergency room with complaints of a several day history of worsening shortness of breath despite supplemental oxygen. She also complains of a dry cough without fever or chills. She has noticed a raspy voice for the past few days, a little bit of odynophagia when she takes her pills, but no dysphagia to food, solids or liquids. The patient denies any sick contacts. In the emergency room, she was found to have worsening respiratory distress with blood pressure increasing to 211/97 with complaints of headache, as well as chest tightness. The patient was sent for a CT of the chest and CT of the head, given intravenous labetalol, along with intravenous hydralazine, nitroglycerin. Chest x-ray showed no acute consolidation or effusion that was identified. She had wheezing on examination and is admitted for hypertensive urgency, rule out acute coronary syndrome, along with chronic obstructive pulmonary disease (COPD) exacerbation. The patient denies any weight gain or weight loss. No fever, chills. No rhinorrhea. No nasal congestion. No tinnitus, vertigo, ear fullness. She does complain of sore throat and voice hoarseness. No nausea, vomiting, diarrhea, abdominal pain, bright red blood per rectum, melena, black tarry stools, anxiety, depression, bilateral upper or lower extremity weakness, paresthesias. Denies any gait abnormality. She does describe some dyspnea on exertion when walking from the bed to the bathroom. No weight gain or weight loss. No lower extremity edema. PAST MEDICAL HISTORY: 1. Gold stage IV COPD 2. Bronchiectasis. 3. Pulmonary calcified granulomas. 4. Chronic pseudomonas. 5. Chronic hypoxic respiratory failure. 6. Oxygen dependent on 2 liters. 7. Hyperlipidemia. 8. Hypertension. 9. Diabetes. 10. Glaucoma. 11. Multinodular goiter. 12. Iron deficiency anemia. PAST SURGICAL HISTORY: 1. Appendectomy. 2. Oophorectomy. 3. Laparoscopic cholecystectomy. 4. Esophagogastroduodenoscopy (EGD) and colonoscopy. 5. Hysterectomy, one ovary and tube removed. She does not know that she had her uterus removed. ALLERGIES: PENICILLIN causing rash and hives. FAMILY HISTORY: Father , of congestive heart failure (CHF). Mother with diabetes, coronary artery disease, hypertension, uterine cancer. SOCIAL HISTORY: The patient lives alone. Previously worked in [employer] and [employer]. The patient had a prior history of smoking. No alcohol use. No recreational drug use. REVIEW OF SYSTEMS: As per history of present illness, 12-point system otherwise negative. PHYSICAL EXAMINATION: VITAL SIGNS: Temperature 97.2, pulse 107 sinus tachycardia, respiratory rate 20, blood pressure 211/97, 97% on 2 liters nasal cannula. GENERAL: The patient is in mild distress, complaining of headache. No use of respiratory accessory muscles. The patient has no jugular venous distention (JVD). No thyromegaly. Able to complete full sentences. HEENT: Pupils are equal, round and reactive. No nystagmus -- horizontal or vertical. No jugular venous distention (JVD). No thyromegaly. The patient does not have any stridor on examination. LUNGS: Diminished, bilateral expiratory wheezing. HEART: S1, S2. Sinus tachycardia. ABDOMEN: Soft, nontender, nondistended. EXTREMITIES: No cyanosis, clubbing or pitting edema. LABORATORY DATA: White count 9.5, hemoglobin 12, hematocrit 42, platelet count 238. Sodium 142, potassium 4.4, chloride 105, bicarbonate 32, BUN 7, creatinine 0.58, glucose 117, lactic acid 1.6, calcium 9.8, total bilirubin 0.2, direct bilirubin 0.1, AST 22, ALT 35, alkaline phosphatase 117, total CK 90, MB fraction 1.1, relative index 1.22, troponin less than 0.02, BNP 120, total protein 6.8, albumin 3.4, TSH 0.977, free T4 1.11. Blood culture pending. Chest x-ray with no acute cardiopulmonary process. CT of the chest pending. CT of the head pending. 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 CURRENT ISSUES: 1. Hypertensive urgency. The patient has been given intravenous labetalol with hydralazine intravenously and nitroglycerin to keep systolic pressure less than 130. The patient will be getting a CT of the head due to complaints of a headache, chest tightness with hypertensive urgency and on chronic antiplatelet therapy to rule out cerebral hemorrhage. The patient will be admitted to a telemetry unit with standard of care and recheck a blood pressure 1 hour after medications are given. 2. Chest pain, most likely related to hypertensive urgency. Rule out aortic dissection in light of increased blood pressure, as well as rule out pulmonary embolism due to worsening shortness of breath. Await results of the CT of the chest, the patient may be resumed on her home medications, as well as tighter blood pressure control with intravenous labetalol, hydralazine. The patient has been given Norvasc and nitroglycerin. Continue to check blood pressure until normalized, less than 130. 3. Chronic obstructive pulmonary disease (COPD) exacerbation. The patient has end stage COPD, currently being given doxycycline, as well as Solu-Medrol for antiinflammatory effect every 6 hours and due to significant sinus tachycardia, Xopenex every 4 hours and every 2 hours as needed. 4. Deep vein thrombosis (DVT) prophylaxis with compression stockings.
[2019-06-05] MEDS: LEVALBUTEROL 1.25 MG/0.5 ML CONCENTRATE NEB NEB SCH (20:25)
[2019-06-05 21:36] VITALS: BP_SYST 130; BP_SYST 138; BP_DIAS 72
[2019-06-05] MEDS: METOPROLOL TART 25 MG TABLET PO SCH (21:49)
[2019-06-05] MEDS: NITROGLYCERIN 2% OINT 1 GM *U/D* PKT TOP SCH (22:00)
[2019-06-05] MEDS: DOXYCYCLINE HYCLATE 100 MG in D5W MINI-BAG PLUS 100 ML IV SCH (22:55)
[2019-06-05] MEDS: LATANOPROST 0.005% OPHTH SOLN 2.5 ML OU SCH (22:55)
[2019-06-05] MEDS: MONTELUKAST 10 MG TAB PO SCH (22:55)
[2019-06-05] MEDS: ATORVASTATIN 20 MG TAB PO SCH (22:55)
[2019-06-06] VITALS (7 sets, daily range): BP systolic 127–158; BP diastolic 70–81
[2019-06-06] MEDS ORDERED: SLF 3 ML SYR IV PRN
[2019-06-06 00:23] LABS: CK-MB VALUE MASS 1.5 NG/ML (<3.6); CPK CREATINE PHOSPHOKINASE 85 U/L (26-192); MB/CK RELATIVE INDEX 1.76 (< OR =4); TROPONIN I < 0.02 NG/ML (< 0.10)
[2019-06-06] MEDS: LEVALBUTEROL 1.25 MG/0.5 ML CONCENTRATE NEB NEB SCH ×7 (00:42→23:35)
--- NOTE | 2019-06-06 00:53 | REPVR ---
PROCEDURE INFORMATION: Exam: CT Head Without Contrast Exam date and time: 06/06/2019 12:00 AM Age: 74 years old Clinical indication: Pain; Headache not specified; Additional info: Hypertensive urgency headache R/O hemorrhage TECHNIQUE: Imaging protocol: Computed tomography of the head without contrast. Radiation optimization: All CT scans at this facility use at least one of these dose optimization techniques: automated exposure control; mA and/or kV adjustment per patient size (includes targeted exams where dose is matched to clinical indication); or iterative reconstruction. COMPARISON: No relevant prior studies available. FINDINGS: Brain: There is diffuse cortical atrophy and hypoattenuation of the deep white matter. No acute hemorrhage. Ventricles: Unremarkable. No ventriculomegaly. Bones/joints: Unremarkable. No acute fracture. Sinuses: Unremarkable as visualized. No acute sinusitis. Mastoid air cells: Unremarkable as visualized. No mastoid effusion. Soft tissues: Unremarkable. IMPRESSION: No acute intracranial process. Diffuse cortical atrophy and chronic deep white matter small vessel disease. Electronically signed by: Kurt Leavitt On 06/06/2019 00:52:51 AM
[2019-06-06] MEDS: NITROGLYCERIN 2% OINT 1 GM *U/D* PKT TOP SCH ×3 (01:09→10:28)
[2019-06-06] MEDS: METOPROLOL TART 25 MG TABLET PO SCH ×3 (01:10→20:12)
[2019-06-06] MEDS: SLF 3 ML SYR IV SCH ×3 (05:15→22:00)
[2019-06-06 05:59] LABS: HEMATOCRIT 43.6 % (36.0-47.0); HEMOGLOBIN 13.6 g/dl (12.0-15.5); MEAN CORPUSCULAR HEMOGLOBIN 28.5 pg (27.0-33.0); MEAN CORPUSCULAR HGB CONC 31.2 g/dl (32.0-36.5); MEAN CORPUSCULAR VOLUME 91.4 fl (80.0-96.0); PLATELET COUNT, AUTOMATED 172 10^3/uL (150-450); RED BLOOD COUNT 4.77 10^6/uL (4.00-5.40); WHITE BLOOD COUNT 9.1 10^3/uL (4.0-10.0)
[2019-06-06] MEDS: DOXYCYCLINE HYCLATE 100 MG in D5W MINI-BAG PLUS 100 ML IV SCH (06:16)
[2019-06-06 06:23] LABS: BLOOD UREA NITROGEN 10 MG/DL (7-18); CALCIUM LEVEL 9.5 MG/DL (8.8-10.2); CARBON DIOXIDE LEVEL 21 MEQ/L (21-32); CHLORIDE LEVEL 109 MEQ/L (98-107); CPK CREATINE PHOSPHOKINASE 106 U/L (26-192); CREATININE FOR GFR 0.63 MG/DL (0.55-1.30); GLOMERULAR FILTRATION RATE > 60.0 (>39); GLUCOSE, FASTING 153 MG/DL (70-100); MAGNESIUM LEVEL 2.2 MG/DL (1.8-2.4); MB/CK RELATIVE INDEX 1.89 (< OR =4); SODIUM LEVEL 138 MEQ/L (136-145); TROPONIN I < 0.02 NG/ML (< 0.10)
[2019-06-06] MEDS: VITAMIN D 1,000 INTERNATIONAL UNITS TABLET PO SCH (10:28)
[2019-06-06] MEDS: ASPIRIN 81 MG ENTERIC TAB PO SCH (10:29)
--- NOTE | 2019-06-06 13:06 | IPNPDOC ---
Text Note Date of Service The patient was seen on 06/06/19. NOTE SUBJECTIVE: -hypertension has much improved now -on 2L and ambulating well but reports that she still feels poorly and feels under the weather and would like to stay one more day for now and be discharged likely tomorrow PHYSICAL EXAMINATION: VITAL SIGNS: see below GENERAL: NAD, breathing comfortably lying in bed. ENT: some nasal congestion, clear posterior oropharynx, no cervical adenopathy, no JVD Pulm: CTAB without crackles, rhonchi or wheezing, speaking in complete sentences, no use of accessory muscles HEART: S1, S2, mild tachycardia, regular rhythm, no murmurs, rubs or gallops ABDOMEN: Soft, nontender, nondistended. EXTREMITIES: No cyanosis, clubbing or pitting edema. LABORATORY DATA: Reviewed. respiratory panel was negative. Blood Cx NGTD CTA: 1. Mild pulmonary hyperinflation with mild scattered fibro-atelectatic change, greatest in the left upper lobe, lingula and apices with scattered interstitial markings and question of minimal reticulonodular tree-in-bud infiltrates. 2. Old granulomatous disease of the chest, liver and spleen. 3. Status post cholecystectomy. 4. Otherwise negative CTA chest. No pulmonary embolism is identified. CT head: No acute intracranial abnormality CXR: Chronic stable changes. 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 CURRENT ISSUES: 1. Hypertensive urgency. resolved on PRN IV labetalol and IV metop -Dc'd IV antihypertensives and start her on lisinopril 10 QHS and metop 25 BID 2. Chest pain, most likely related to hypertensive urgency. -Ruled out aortic dissection in light of increased blood pressure, as well PE 3. Chronic obstructive pulmonary disease (COPD) exacerbation. The patient has end stage COPD, currently being given doxycycline, as well as Solu-Medrol for antiinflammatory effect every 6 hours and due to significant sinus tachycardia, Xopenex every 4 hours and every 2 hours as needed. -Dc solumedrol and start pred 40 daily for 5d -will dc doxycycline without evidence of bacterial infection -continue nebs 4. Deep vein thrombosis (DVT) prophylaxis with compression stockings. VS,Fishbone, I+O VS, Fishbone, I+O Laboratory Tests 06/05/19 14:14 06/06/19 05:35 Vital Signs Date Time Temp Pulse Resp B/P (MAP) Pulse Ox O2 Delivery O2 Flow Rate FiO2 06/06/19 12:07 98.5 95 14 147/74 (98) 100 Nasal Cannula 06/06/19 08:00 2.0 I&O- Last 24 Hours up to 6 AM 06/06/19 06:00 Intake Total 0 ml Output Total 800 ml Balance -800 ml MICA SULLIVAN MD Jun 06, 2019 13:06
[2019-06-06] MEDS: predniSONE 20 MG TAB PO SCH (13:35)
[2019-06-06] MEDS: lisinopriL 10 MG TAB PO SCH (13:36)
[2019-06-06] MEDS ORDERED: methylPREDNISolone INJ 125 MG/2 ML VIAL (J2930) IV SCH (18:00)
[2019-06-06] MEDS: ATORVASTATIN 20 MG TAB PO SCH (20:11)
[2019-06-06] MEDS: LATANOPROST 0.005% OPHTH SOLN 2.5 ML OU SCH (20:12)
[2019-06-06] MEDS: MONTELUKAST 10 MG TAB PO SCH (20:12)
[2019-06-07] VITALS: BP 146/74
[2019-06-07 04:00] VITALS: BP 148/80
[2019-06-07] MEDS: LEVALBUTEROL 1.25 MG/0.5 ML CONCENTRATE NEB NEB SCH ×3 (04:00→11:18)
[2019-06-07 05:27] LABS: HEMATOCRIT 39.6 % (36.0-47.0); HEMOGLOBIN 11.9 g/dl (12.0-15.5); MEAN CORPUSCULAR HEMOGLOBIN 27.3 pg (27.0-33.0); MEAN CORPUSCULAR HGB CONC 30.1 g/dl (32.0-36.5); MEAN CORPUSCULAR VOLUME 90.8 fl (80.0-96.0); PLATELET COUNT, AUTOMATED 247 10^3/uL (150-450); RED BLOOD COUNT 4.36 10^6/uL (4.00-5.40); WHITE BLOOD COUNT 10.8 10^3/uL (4.0-10.0)
[2019-06-07 05:47] LABS: BLOOD UREA NITROGEN 13 MG/DL (7-18); CALCIUM LEVEL 9.5 MG/DL (8.8-10.2); CARBON DIOXIDE LEVEL 30 MEQ/L (21-32); CHLORIDE LEVEL 108 MEQ/L (98-107); CREATININE FOR GFR 0.54 MG/DL (0.55-1.30); GLOMERULAR FILTRATION RATE > 60.0 (>39); GLUCOSE, FASTING 111 MG/DL (70-100); MAGNESIUM LEVEL 2.3 MG/DL (1.8-2.4); POTASSIUM SERUM 4.2 MEQ/L (3.5-5.1); SODIUM LEVEL 142 MEQ/L (136-145)
[2019-06-07] MEDS: SLF 3 ML SYR IV SCH (06:54)
[2019-06-07 08:00] VITALS: BP 142/84
[2019-06-07 09:50] VITALS: BP 142/84
[2019-06-07] MEDS: ASPIRIN 81 MG ENTERIC TAB PO SCH (09:50)
[2019-06-07] MEDS: VITAMIN D 1,000 INTERNATIONAL UNITS TABLET PO SCH (09:50)
[2019-06-07] MEDS: predniSONE 20 MG TAB PO SCH (09:50)
[2019-06-07] MEDS: METOPROLOL TART 25 MG TABLET PO SCH (09:50)
[2019-06-07] MEDS: lisinopriL 10 MG TAB PO SCH (09:51)
[2019-06-07 12:00] VITALS: BP 130/72
[2019-06-07] MEDS ORDERED: PRED20TA PO (13:36)
[2019-06-07] MEDS ORDERED: METO1TAB87 PO (13:36)
[2019-06-07] MEDS ORDERED: LISI10TA4 PO (13:36)
--- NOTE | 2019-06-07 16:18 | DS.PDOC ---
Discharge Summary General Date of Admission Jun 05, 2019 at 17:59 Date of Discharge 06/07/2019 Attending Physician: MICA SULLIVAN MD Discharge Summary PROCEDURES PERFORMED DURING STAY: None ADMITTING DIAGNOSES: 1. Hypertensive urgency 2. COPD exacerbation 2/2 likely viral URI DISCHARGE DIAGNOSES: 1. Hypertensive urgency 2. COPD exacerbation 2/2 likely viral URI on chronic Gold stage IV COPD on chronic home 2L 3. Chronic bronchiectasis. 4. chronic Pulmonary calcified granulomas. 5. Chronic pseudomonas. 6. Chronic hypoxic respiratory failure. 7. Hyperlipidemia. 8. Diabetes. 9. Glaucoma. 10. Multinodular goiter. 11. Iron deficiency anemia. COMPLICATIONS/CHIEF COMPLAINT: Short Of Breath. 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 HOSPITAL COURSE: In the ED, she was found to be in hypertensive urgency and acute on chronic hypoxemic respiratory for which she was placed on steroids, 3L NC and started on IV antihypertensives. Studies were negative for PE, aortic dissection, common respiratory virus URI or PNA. By day 2, hypertension has improved and she was started on metop 25 BID and lisinopril 10mg QHS, and she was switched to prednisone 40 daily with a plan for 5d course, while she now was back on her 2L NC that she ambulated with PT and maintained good saturations. She is now being discharged home to follow up with her PCP. DISCHARGE MEDICATIONS: Please see below. ALLERGIES: Please see below. PHYSICAL EXAMINATION ON DISCHARGE: VITAL SIGNS: Please see below. PHYSICAL EXAMINATION: VITAL SIGNS: see below GENERAL: NAD, breathing comfortably lying in bed. ENT: some nasal congestion, clear posterior oropharynx, no cervical adenopathy, no JVD Pulm: CTAB without crackles, rhonchi or wheezing, speaking in complete sentences, no use of accessory muscles, on 2L NC HEART: S1, S2, mild tachycardia, regular rhythm, no murmurs, rubs or gallops ABDOMEN: Soft, nontender, nondistended. EXTREMITIES: No cyanosis, clubbing or pitting edema. LABORATORY DATA: Please see below. IMAGING: CTA: 1. Mild pulmonary hyperinflation with mild scattered fibro-atelectatic change, greatest in the left upper lobe, lingula and apices with scattered interstitial markings and question of minimal reticulonodular tree-in-bud infiltrates. 2. Old granulomatous disease of the chest, liver and spleen. 3. Status post cholecystectomy. 4. Otherwise negative CTA chest. No pulmonary embolism is identified. CT head: No acute intracranial abnormality CXR: Chronic stable changes. PROGNOSIS: Good ACTIVITY: As tolerated DIET: regular DISCHARGE PLAN: Home with PCP follow up DISPOSITION: Home DISCHARGE INSTRUCTIONS: 1. Please take metoprolol 25mg twice daily and lisinopril nightly as prescribed for high blood pressures 2. Please take the 40mg of prednisone for the next 4 days to complete a 5 day course for your COPD flare ITEMS TO FOLLOWUP ON ON OUTPATIENT: 1. Hypertension 2. COPD management DISCHARGE CONDITION: Stable TIME SPENT ON DISCHARGE: 43 minutes. Vital Signs/I&Os Vital Signs Date Time Temp Pulse Resp B/P (MAP) Pulse Ox O2 Delivery O2 Flow Rate FiO2 06/07/19 12:00 98.3 92 22 130/72 (91) 98 Nasal Cannula 2.0 I&O- Last 24 Hours up to 6 AM 06/07/19 06:00 Intake Total 1210 ml Output Total 2450 ml Balance -1240 ml Laboratory Data Labs 24H Laboratory Tests 2 06/07/19 05:11: Nucleated Red Blood Cells % (auto) 0.0, Anion Gap 4L, Glomerular Filtration Rate > 60.0, Calcium Level 9.5, Magnesium Level 2.3 CBC/BMP Laboratory Tests 06/07/19 05:11 Microbiology Microbiology 06/06/19 Respiratory Virus Panel (PCR) (AILYN) - Final, Complete 06/05/19 Blood Culture - Preliminary, Resulted No growth after 24 hours . All specim... 06/05/19 Blood Culture - Preliminary, Resulted No Growth after 48 hours. All Specime... Discharge Medications Scheduled Aspirin (Aspir 81) 81 Mg Tab, 81 MG PO DAILY, (Reported) Atorvastatin Calcium (Atorvastatin Calcium) 40 Mg Tab, 40 MG PO QHS, (Reported) Brinzolamide/Brimonidine Tart (Simbrinza 1%-0.2% Eye Drops) 1 Yuki Yuki, 1 DROP OU BID, (Reported) Cholecalciferol (Vitamin D3) (Vitamin D3) 1,000 Unit Capsule, 5,000 UNIT PO YOVANY LY, (Reported) Lisinopril (Lisinopril) 10 Mg Tablet, 10 MG PO DAILY Metoprolol Tartrate (Metoprolol Tartrate) 25 Mg Tablet, 25 MG PO BID Montelukast Sodium (Montelukast Sodium) 10 Mg Tab, 10 MG PO QHS, (Reported) Prednisone (Prednisone) 20 Mg Tablet, 40 MG PO DAILY Salmeterol/Fluticasone (Advair 500-50 Diskus) 28 Puff/Inhaler Aerp, 1 PUFF INH BID, (Reported) Travoprost (Travatan Z) 50 Drop/2.5 Ml Soln, 1 DROP OU QHS, (Reported) Scheduled PRN Ipratropium/Albuterol Sulfate (Iprat-Albut 0.5-3(2.5) mg/3 ml) 1 Triny Triny, 1 VIAL INH QID PRN for SHORTNESS OF BREATH, (Reported) Allergies Coded Allergies: Penicillins (Verified Allergy, Unknown, rash, 06/05/19) MICA SULLIVAN MD Jun 07, 2019 16:18
== END 2019-06-07 16:05 | disposition home or self-care (01) | DRG 191 ==
LOC: M ED 13:15 → M ED INP 17:59 → ENRESERV 19:18 → M PCU 21:37
PROVIDERS: ADMIT General Practice; ATTEND General Practice
DX: J44.1 Chronic obstructive pulmonary disease with (acute) exacerbation (principal); J96.11 Chronic respiratory failure with hypoxia; I16.0 Hypertensive urgency; R00.0 Tachycardia, unspecified; Z99.81 Dependence on supplemental oxygen; E11.9 Type 2 diabetes mellitus without complications; E78.5 Hyperlipidemia, unspecified; H40.9 Unspecified glaucoma; E04.2 Nontoxic multinodular goiter; D50.9 Iron deficiency anemia, unspecified; J47.9 Bronchiectasis, uncomplicated; J84.10 Pulmonary fibrosis, unspecified; Z90.49 Acquired absence of other specified parts of digestive tract; Z90.79 Acquired absence of other genital organ(s); Z88.0 Allergy status to penicillin; Z87.891 Personal history of nicotine dependence

== ENCOUNTER → 2019-11-07 | Outpatient (REF) | payer MEDICARE, MEDICAID ==
[~2019-11-07] MED LIST changes: +LISI10TA4 PO; +METO1TAB87 PO; +VITA100054 PO
[2019-11-07 18:17] LABS: ALT/SGPT 27 U/L (12-78); BLOOD UREA NITROGEN 7 MG/DL (7-18); CALCIUM LEVEL 9.7 MG/DL (8.8-10.2); CARBON DIOXIDE LEVEL 29 MEQ/L (21-32); CHLORIDE LEVEL 100 MEQ/L (98-107); CREATININE FOR GFR 0.52 MG/DL (0.55-1.30); GLOMERULAR FILTRATION RATE > 60.0 (>39); GLUCOSE, FASTING 102 MG/DL (70-100); POTASSIUM SERUM 4.9 MEQ/L (3.5-5.1); SODIUM LEVEL 135 MEQ/L (136-145)
[2019-11-07 18:18] LABS: ALBUMIN 3.4 GM/DL (3.2-5.2); BILIRUBIN,TOTAL 0.3 MG/DL (0.2-1.0); CHOLESTEROL LEVEL 127 MG/DL (<200); CHOLESTEROL RISK RATIO 3.432 (<5); HDL CHOLESTEROL 37 MG/DL (>40); LDL CHOLESTEROL 67 MG/DL (<100); NON-HDL-C 90 MG/DL; THYROID STIMULATING HORMONE 0.441 uIU/ML (0.358-3.740); TOTAL 25(OH) VITAMIN D 68.1 NG/ML (30.0-100.0); TOTAL PROTEIN 6.9 GM/DL (6.4-8.2); TRIGLYCERIDES LEVEL 116 MG/DL (<150)
[2019-11-07 18:43] LABS: HEMOGLOBIN A1c 5.9 %
== END ==
LOC: M SFHCPLAZ 15:04
PROVIDERS: ATTEND Nurse Practitioner Adult Health
DX: E11.9 Type 2 diabetes mellitus without complications (principal); E78.2 Mixed hyperlipidemia; E55.9 Vitamin D deficiency, unspecified

== ENCOUNTER → 2019-11-07 | Outpatient (CLI) | payer MEDICARE, MEDICAID ==
[~2019-11-07] MED LIST changes: +ADVA230A INH; +AMLO1TAB24 PO; -AMLO5TAB6 PO; -ASPI81TA85 PO; +ASPI81TA86 PO
--- NOTE | 2019-11-07 23:03 | REPPI ---
REASON: COPD. COMPARISON: Multiple, the latest 06/05/2019 portable exam. Interstitial fibrotic change is seen, status quo. The lung weber are hyperexpanded, status quo. Scattered nodules, status quo. Cardiomediastinal silhouette stable. Calcified paratracheal lymph nodes, unchanged. No new abnormal opacities. No change in the osseous structures. IMPRESSION: Stable appearing chronic changes. If clinically relevant, consider CT of the chest so it can be compared to the prior CT of the chest of 06/05/2019. Electronically Signed by Florentino Barrios DO 11/08/2019 12:36 P
== END ==
LOC: M PLAIMG 13:34
PROVIDERS: ATTEND Internal Medicine Pulmonary Disease
DX: J44.9 Chronic obstructive pulmonary disease, unspecified (principal); E11.9 Type 2 diabetes mellitus without complications; E78.2 Mixed hyperlipidemia; E55.9 Vitamin D deficiency, unspecified

== ENCOUNTER → 2019-12-12 | Outpatient (CLI) | payer MEDICARE, MEDICAID ==
[2020-02-05 03:15] LABS: BLOOD UREA NITROGEN 5 MG/DL (7-18); CREATININE FOR GFR 0.61 MG/DL (0.55-1.30); GLOMERULAR FILTRATION RATE > 60.0 (>39)
== END ==
LOC: M LAB 08:54
PROVIDERS: ATTEND Otolaryngology
DX: J38.01 Paralysis of vocal cords and larynx, unilateral (principal)

== ENCOUNTER → 2019-12-18 | Outpatient (CLI) | payer MEDICARE, MEDICAID ==
[~2019-12-18] MED LIST changes: +ISOVUE-370 76% 100ML VIAL As Ordered ONE
--- NOTE | 2019-12-18 15:41 | REPVR ---
PROCEDURE INFORMATION: Exam: CT Neck With Contrast Exam date and time: 12/18/2019 2:43 PM Age: 74 years old Clinical indication: Other: Vocal cord. TECHNIQUE: Imaging protocol: Computed tomography images of the neck with intravenous contrast. Radiation optimization: All CT scans at this facility use at least one of these dose optimization techniques: automated exposure control; mA and/or kV adjustment per patient size (includes targeted exams where dose is matched to clinical indication); or iterative reconstruction. Contrast material: ISOVUE 370; Contrast volume: 100 ml; Contrast route: INTRAVENOUS (IV); COMPARISON: Thyroid, ST head+neck US 12/18/2019 1:54 PM FINDINGS: Nasopharynx: Unremarkable. Oropharynx: Unremarkable. No significant tonsillar enlargement. Hypopharynx: Unremarkable. Larynx: There is what likely represents a right-sided internal laryngocele that causes deformity of the vocal cords. A discrete soft tissue mass is not identified. Retropharyngeal space: Unremarkable. Submandibular/Parotid glands: There is fatty involution of the right parotid gland. Thyroid: There is mild nodular enlargement of the thyroid gland. Impression Lymph nodes: Unremarkable. No lymphadenopathy. Trachea: Visualized trachea is unremarkable. Lungs: There are bilateral emphysematous changes. There is scarring at both lung apices, left worse than right. Within the limitations of this exam, the appearance is similar to prior study. Bones/joints: Unremarkable. No acute fracture. Vasculature: There are calcified atherosclerotic changes of the cervical carotid arteries. Soft tissues: See "Larynx" finding. IMPRESSION: 1. 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 A discrete soft tissue mass is not identified. Because of the deformity of the vocal cords and distortion of the underlying anatomy, visual inspection is recommended. 2. There is fatty involution of the right parotid gland. Electronically signed by: Geoffrey Lara On 12/18/2019 15:41:13 PM
--- NOTE | 2020-01-15 10:42 | REP ---
THYROID ULTRASOUND: COMPARISON: 10/10/08 FINDINGS: The right lobe of the thyroid gland measures 2.8 x 1.9 x 2.2 cm. The left lobe of the thyroid gland measures 3 x 1.5 x 2 cm. The isthmus measures 6.3 mm. In the right lobe of the thyroid gland, there are 2 solid nodules; one measures 5 mm in its greatest dimension and the other measures 5 mm in its greatest dimension. In the left lobe of the thyroid gland, there are 2 dominant nodules; one measures 8 mm in its greatest dimension and the other measures 9 mm in its greatest dimension. The thyroid parenchymal echopattern is heterogeneous. IMPRESSION: Thyroid nodules and other findings as described above. MTDD
--- NOTE | 2020-01-23 09:23 | REP ---
CONTRAST ENHANCED CHEST CT CLINICAL: Vocal cord paralysis. TECHNIQUE: Axial contrast enhanced images from the thoracic inlet to the upper abdomen using 75 mL Isovue-370 intravenous contrast material with coronal and sagittal reformations. COMPARISON: 06/05/2019, 01/15/2017. FINDINGS: Chronic obstructive pulmonary disease (COPD)/emphysematous changes are appreciated along with advanced chronic changes related to granulomatous disease and possible prior pulmonary infectious processes. These findings include areas of chronic irregular bronchiectasis primarily involving the left upper lobe, lingula, and right base, as well as associated areas of ill-defined/linear fibrosis/scarring, volume loss, and chronic appearing rounded atelectasis in the right lower along with scattered relatively chronic appearing noncalcified irregular nodular changes and areas of opacity, again primarily in areas of underlying bronchiectasis and scarring similar to prior examination. Calcified mediastinum and hilar lymph nodes are also noted. These findings are similar in appearance through 2017. No obvious new acute consolidation, effusion, or pneumothorax. No acute adenopathy. Further evaluation of the mediastinum demonstrates atherosclerotic changes to the thoracic aorta and coronary arteries without aortic aneurysm/dissection or cardiomegaly. No pericardial effusion. Musculoskeletal structures demonstrate age-related changes without acute osseous abnormality. Limited upper abdomen demonstrates normal bilateral adrenal glands and small hepatic hypodensities likely representing cysts. IMPRESSION: Advanced chronic obstructive pulmonary disease (COPD) along with chronic changes related to prior granulomatous disease. Findings are similar through 2017. Small areas of noncalcified density are noted suggesting granulomatous changes, although a subtle acute process cannot be excluded and follow-up examination should be based on patients symptomatology. [facility]
== END ==
LOC: M RAD 13:36
PROVIDERS: ATTEND Otolaryngology
DX: E04.1 Nontoxic single thyroid nodule (principal); J44.9 Chronic obstructive pulmonary disease, unspecified; K86.89 Other specified diseases of pancreas; J38.01 Paralysis of vocal cords and larynx, unilateral
CPT/HCPCS: 70491; 71260; 76536; Q9967

== ENCOUNTER → 2020-01-11 | Outpatient (CLI) | payer MEDICARE, MEDICAID ==
[~2020-01-11] MED LIST changes: -ISOVUE-370 76% 100ML VIAL As Ordered ONE; +LIDOCAINE 1% MDV 20ML VIAL As Ordered ONE
[2020-01-11 10:33] VITALS: BP 139/64
--- NOTE | 2020-01-24 09:48 | REP ---
ULTRASOUND GUIDED BILATERAL THYROID BIOPSY: The procedure was performed under the direct supervision of Dr. Nelson. The patient has a history of bilateral thyroid nodules seen on a previous ultrasound dated 12/18/19. The risks and benefits of the procedure were explained to the patient and informed consent was obtained. The bilateral thyroid nodules were localized using ultrasound guidance. The skin was prepped and draped in a sterile fashion. 1% Lidocaine was used as a local anesthetic. The left thyroid nodule was addressed first. Using ultrasound guidance, four fine needle aspirations were obtained using 25 gauge needles. The right thyroid nodule was then addressed. Using ultrasound guidance, four fine needle aspirations were obtained using 25 gauge needles. The patient tolerated the procedure well and there were no immediate complications. After the appropriate amount of monitored convalescence, the patient was discharged from the department. ANTONIO
== END ==
LOC: M IRPRO 09:10
PROVIDERS: ATTEND Otolaryngology
DX: E04.2 Nontoxic multinodular goiter (principal)

== ENCOUNTER → 2020-03-18 | Outpatient (CLI) | payer MEDICARE, MEDICAID ==
[~2020-03-18] MED LIST changes: +SODIUM BICARBONATE 8.4% INJ 50MEQ 50 ML VIAL As Ordered ONE
[2020-03-18 11:40] VITALS: BP 172/77
--- NOTE | 2020-03-18 15:50 | REP ---
INDICATION: THYROID NODULES. COMPARISON: None. TECHNIQUE: The procedure was performed by PANCHO Madrigal, under the direct supervision of Dr. Nevarez. The risks and benefits of the procedure were explained to the patient and an informed consent was obtained both verbally and written. Directly prior to the start of the procedure a formal time-out was completed in the procedure room. The right thyroid nodule was localized using ultrasound guidance. The skin was prepped and draped in a sterile fashion. Seven mL of buffered lidocaine was used as a local anesthetic. . FINDINGS: Using ultrasound guidance a 4 fine needle aspirations were obtained using 25 gauge needles The patient tolerated the procedure well and there were no immediate complications. After the appropriate amount of monitored convalescence the patient was discharged from the department. IMPRESSION: Ultrasound-guided right thyroid nodule fine needle aspiration. <Electronically signed by Mirta Alejandro > 03/18/20 1350 <Electronically signed by Doe Nevarez > 03/18/20 0604
== END ==
LOC: M IRPRO 10:46
PROVIDERS: ATTEND Otolaryngology
DX: E04.2 Nontoxic multinodular goiter (principal); Z79.82 Long term (current) use of aspirin; Z79.899 Other long term (current) drug therapy; Z88.0 Allergy status to penicillin

== ENCOUNTER → 2020-04-09 | Outpatient (CLI) | payer MEDICARE, MEDICAID ==
[~2020-04-09] MED LIST changes: +E-Z-GAS II EFFERVESCENT PACKET (SODIUM BICARB./CITRIC ACID/SIMETHICONE) As Ordered ONE; +E-Z-HD 98% w/w 340GM SUSP BTL As Ordered ONE; +E-Z-PAQUE 96% w/w SUSP 176GM BTL As Ordered ONE; -LIDOCAINE 1% MDV 20ML VIAL As Ordered ONE; -MONT10TA4 PO; +MONT5TAB2 PO; -SODIUM BICARBONATE 8.4% INJ 50MEQ 50 ML VIAL As Ordered ONE
--- NOTE | 2020-04-09 13:36 | REP ---
INDICATION: DYSPHAGIA. COMPARISON: CT chest with contrast dated 12/18/2019, chest x-ray two views dated 11/07/2019. TECHNIQUE: This procedure was performed by Mirta Alejandro [facility], under the direct supervision of Dr. Nelson. Images were reviewed with Dr. Nelson prior to dictation. Liquid barium and gas producing crystals were given in the erect position, as well as liquid barium in the prone oblique position in order to perform a double contrast esophagram examination. FINDINGS: A single view PA chest x-ray is submitted as a machining engineer film. Again noted are advanced chronic changes related to granulomatous disease of the lungs. There is volume loss of the upper lobes bilaterally. The oral and pharyngeal stages of deglutition were unremarkable. However cricopharyngeal hyperplasia as well as tertiary contractions were visualized during the exam. Esophageal transport is prompt and efficient and there is no evidence of esophagitis, stricture, or mucosal ring. There is no evidence of a hiatal hernia. There is no gastroesophageal reflux noted . IMPRESSION: . Cricopharyngeal hyperplasia. Tertiary contractions. 0.3 minutes of fluoroscopy time was utilized for this procedure. Some fluoroscopic images are performed with last image hold technology. These images require no additional radiation. <Electronically signed by Mirta Alejandro > 04/09/20 1300 <Electronically signed by Ranjan Nelson > 04/09/20 [id number]
== END ==
LOC: M RAD 08:02
PROVIDERS: ATTEND Otolaryngology
DX: J39.2 Other diseases of pharynx (principal); R13.10 Dysphagia, unspecified

== ENCOUNTER → 2020-05-25 | Outpatient (CLI) | payer MEDICARE, MEDICAID ==
[~2020-05-25] MED LIST changes: +ASPI81TA26 PO; +D31000TA2 PO; -E-Z-GAS II EFFERVESCENT PACKET (SODIUM BICARB./CITRIC ACID/SIMETHICONE) As Ordered ONE; -E-Z-HD 98% w/w 340GM SUSP BTL As Ordered ONE; -E-Z-PAQUE 96% w/w SUSP 176GM BTL As Ordered ONE; +OMEP1CAP73 PO
== END ==
LOC: M LABSMTC 10:17
PROVIDERS: ATTEND Anesthesiology
DX: Z01.812 Encounter for preprocedural laboratory examination (principal); Z20.822 Contact with and (suspected) exposure to COVID-19

== ENCOUNTER 2020-05-30 06:54 | Day surgery (SDC) | payer MEDICARE, MEDICAID ==
[~2020-05-30] VITALS: Ht 152.4 cm; Wt 58.0 kg
[2020-05-30] MEDS ORDERED: NS 1,000 ML IV ONE (07:00)
[2020-05-30] MEDS ORDERED: LIDOCAINE 2% 100MG/5ML SDV (FOR ANES.) As Ordered ONE (07:48)
[2020-05-30] MEDS ORDERED: propofoL 500 MG/50 ML VIAL As Ordered ONE (07:48)
[2020-05-30] MEDS ORDERED: fentaNYL 100 MCG/2 ML INJECTION (J3010) As Ordered ONE (07:48)
--- NOTE | 2020-05-30 07:55 | ROOR ---
Patient Name: Bing Chirinos Procedure Date: 05/30/2020 7:40 AM Date of : 1945 Age: 75 Room: [facility] Gender: Female Note Status: Finalized Procedure: Upper GI endoscopy Indications: Dysphagia Providers: Gabe YOST MD Referring MD: Zohra Sims NP Requesting Provider: Medicines: Monitored Anesthesia Care Complications: No immediate complications. Procedure: Pre-Anesthesia Assessment: - The heart rate, respiratory rate, oxygen saturations, blood pressure, adequacy of pulmonary ventilation, and response to care were monitored throughout the procedure. The Endoscope was introduced through the mouth, and advanced to the second part of duodenum. The upper GI endoscopy was accomplished without difficulty. The patient tolerated the procedure well. Findings: A small area of extrinsic compression was found at the cricopharyngeus. The scope was withdrawn. Dilation was performed with a Carpenter dilator with no resistance at 50 Fr. The dilation site was examined following endoscope reinsertion and showed mild mucosal disruption. The examined esophagus was normal. The entire examined stomach was normal. The examined duodenum was normal. Impression: - Extrinsic compression at the cricopharyngeus. Dilated. - Otherwise normal esophagus. - Normal stomach. - Normal examined duodenum. - No specimens collected. Recommendation: - Observe patient's clinical course. - I anticipate no further need for intervention. - Return to referring physician as previously scheduled. Procedure Code(s): --- Professional --- 08639, Esophagogastroduodenoscopy, flexible, transoral; diagnostic, including collection of specimen(s) by brushing or washing, when performed (separate procedure) 68964, Dilation of esophagus, by unguided sound or bougie, single or multiple passes Diagnosis Code(s): --- Professional --- K22.2, Esophageal obstruction R13.10, Dysphagia, unspecified CPT copyright 2019 [employer]. All rights reserved. The codes documented in this report are preliminary and upon extruding press adjuster review may be revised to meet current compliance requirements. Gabe Yost MD Gabe YOST MD 05/30/2020 7:55:43 AM Electronically signed by Gabe YOST MD Number of Addenda: 0 Note Initiated On: 05/30/2020 7:40 AM Estimated Blood Loss: Estimated blood loss: none.
[2020-05-30 08:15] VITALS: BP 150/68
== END 2020-05-30 08:22 | disposition home or self-care (01) ==
LOC: M OPP 06:54
PROVIDERS: ATTEND Internal Medicine Gastroenterology
DX: R13.10 Dysphagia, unspecified (principal); K22.2 Esophageal obstruction; I10 Essential (primary) hypertension; E78.5 Hyperlipidemia, unspecified; R12 Heartburn; M81.0 Age-related osteoporosis without current pathological fracture; F41.9 Anxiety disorder, unspecified; F32.9 Major depressive disorder, single episode, unspecified; J44.9 Chronic obstructive pulmonary disease, unspecified; K21.9 Gastro-esophageal reflux disease without esophagitis; R00.8 Other abnormalities of heart beat; Z88.0 Allergy status to penicillin; Z79.899 Other long term (current) drug therapy; Z86.711 Personal history of pulmonary embolism
CPT/HCPCS: 43235; 43450; J3010

== ENCOUNTER → 2020-08-07 | Outpatient (CLI) | payer MEDICARE, MEDICAID ==
[~2020-08-07] MED LIST changes: +LISI10TA22 PO; -LISI10TA4 PO; +MONT10TA10 PO; -MONT5TAB2 PO
[2020-08-07 18:11] LABS: BLOOD UREA NITROGEN 6 MG/DL (7-18); CREATININE FOR GFR 0.49 MG/DL (0.55-1.30); GLOMERULAR FILTRATION RATE > 60.0 (>39)
== END ==
LOC: M LAB 12:53
PROVIDERS: ATTEND Otolaryngology
DX: J96.11 Chronic respiratory failure with hypoxia (principal); J44.9 Chronic obstructive pulmonary disease, unspecified

== ENCOUNTER → 2020-08-07 | Outpatient (CLI) | payer MEDICARE, MEDICAID | LOC: M RAD 12:05 | PROVIDERS: ATTEND Otolaryngology | DX: Z53.8 Procedure and treatment not carried out for other reasons (principal) ==

== ENCOUNTER → 2020-08-07 | Outpatient (CLI) | payer MEDICARE, MEDICAID ==
--- NOTE | 2020-08-08 07:14 | REP ---
INDICATION: CHRONIC OBSTRUCTIVE PULM DISEASE/ CT SCAN ALSO COMPARISON: 11/07/2019 TECHNIQUE: PA and lateral. FINDINGS: Diffuse pleuroparenchymal changes are again noted and essentially stable compared to prior examination. Mediastinum and cardiac silhouette are stable. No obvious new acute process identified. Skeletal structures are intact. IMPRESSION: Diffuse chronic pleuroparenchymal changes similar to 11/07/2019. If the patient remains symptomatic consider chest CT for further investigation. <Electronically signed by Aram Perez > 08/08/20 0702
== END ==
LOC: M RAD 12:11
PROVIDERS: ATTEND Internal Medicine Pulmonary Disease
DX: J98.4 Other disorders of lung (principal)

== ENCOUNTER → 2020-08-15 | Outpatient (CLI) | payer MEDICARE, MEDICAID ==
[~2020-08-15] MED LIST changes: +ISOVUE-370 76% 100ML VIAL As Ordered ONE
--- NOTE | 2020-08-15 09:57 | REP ---
INDICATION: PARALYSIS OF VOCAL CORDS. COMPARISON: None. TECHNIQUE: Axial CT images with multiplanar reformations. FINDINGS: The left focal cord is deviated medially and there is associated dilation of the glottic airway. The laryngeal ventricles appear patulous, bilaterally. No significant lymphadenopathy. There is a soft tissue fullness at the base of the tongue on the right with calcifications within, may represent sequelae of old infection. Degenerative disc disease seen in the cervical spine, there is a left convex cervicothoracic curvature. There is atherosclerotic calcification at the carotid bifurcation on the right with perhaps 50% narrowing of the internal carotid artery at its origin. On the left, no significant carotid stenosis. Vertebral arteries present throughout their cervical course. Thyroid gland demonstrate a few scattered calcifications per otherwise grossly normal. Paranasal sinuses and mastoid air cells are clear. The lungs demonstrate emphysematous changes with dependent consolidation, greater on the left. 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 No mass lesion or lymphadenopathy. Emphysematous changes with dependent consolidations of the lung apices, greater on the left. <Electronically signed by Chaparro Delgado > 08/15/20 0953
--- NOTE | 2020-08-15 10:06 | REP ---
INDICATION: PARALYSIS OF VOCAL CORDS COMPARISON: 12/18/2019 TECHNIQUE: Axial contrast enhanced images from the thoracic inlet to the upper abdomen with coronal and sagittal reformations using 75 ml Isovue 370 intravenous contrast material. This CT examination was performed using the following dose reduction techniques: Automated exposure control, adjustment of mA and/or kv according to the patient's size, and use of iterative reconstruction technique. FINDINGS: Advanced chronic emphysematous changes with scattered areas of fibrosis/scarring and chronic areas of consolidation surrounding irregular bronchiectasis again noted and primarily identified within the left upper lobe as well as scattered within the right lung. The areas of consolidation in the left upper lobe appears slightly increased from prior examination which is a nonspecific finding and likely chronic/progressive. Associated stable chronic calcified mediastinal and hilar lymph nodes are again noted along with scattered stable calcified and noncalcified nodular densities. No obvious new acute process is appreciated. No effusion. No pneumothorax. Further evaluation of the mediastinum again demonstrates atherosclerotic changes to the thoracic aorta, chronic left-sided myometrial calcifications and coronary artery calcifications. No cardiomegaly or pericardial effusion. Osseous structures are intact and without acute process. IMPRESSION: Advanced chronic emphysematous changes and sequelae of prior granulomatous disease as described above and relatively stable although progressive increased areas of ill-defined opacities surrounding the irregular bronchiectasis in the left upper lobe is noted. No acute consolidation, effusion, or adenopathy. <Electronically signed by Aram Perez > 08/15/20 1002
== END ==
LOC: M RAD 08:17
PROVIDERS: ATTEND Otolaryngology
DX: J38.01 Paralysis of vocal cords and larynx, unilateral (principal); R91.8 Other nonspecific abnormal finding of lung field
CPT/HCPCS: 70491; 71260; Q9967

== ENCOUNTER → 2020-12-04 | Outpatient (CLI) | payer MEDICARE, MEDICAID ==
[~2020-12-04] MED LIST changes: -ISOVUE-370 76% 100ML VIAL As Ordered ONE
--- NOTE | 2020-12-04 10:34 | REP ---
INDICATION: GOITOR. COMPARISON: 12/18/2019 FINDINGS: Right lobe: 4.1 x 1.9 x 2.1 cm. Multiple small solid nodules and cysts scattered throughout. The largest upper pole nodule measures 5 mm and the largest mid pole nodule measures 5 mm. No interval change compared to the previous study. Left lobe: 3.3 x 1.4 x 1.6 cm. Multiple small solid nodules and cysts scattered in the gland. The largest nodules are in the midpole measuring 6 mm in lower pole measuring 7 mm. No interval change. The previous study. Isthmus 4.5 mm. No nodule or cyst. IMPRESSION: Multinodular thyroid showing no interval change compared to the previous study. <Electronically signed by Frantz Bunch > 12/04/20 [id number]
== END ==
LOC: M RAD 09:52
PROVIDERS: ATTEND Otolaryngology
DX: E04.2 Nontoxic multinodular goiter (principal)

== ENCOUNTER → 2020-12-10 | Outpatient (CLI) | payer MEDICARE, MEDICAID ==
[2020-12-10 10:57] LABS: HEMOGLOBIN A1c 6.1 %
[2020-12-10 11:02] LABS: ALBUMIN 3.2 GM/DL (3.2-5.2); ALT/SGPT 20 U/L (12-78); BILIRUBIN,TOTAL 0.4 MG/DL (0.2-1.0); BLOOD UREA NITROGEN 7 MG/DL (7-18); CALCIUM LEVEL 9.1 MG/DL (8.8-10.2); CARBON DIOXIDE LEVEL 30 MEQ/L (21-32); CHLORIDE LEVEL 103 MEQ/L (98-107); CHOLESTEROL LEVEL 149 MG/DL (<200); CHOLESTEROL RISK RATIO 3.311 (<5); CREATININE FOR GFR 0.58 MG/DL (0.55-1.30); GLOMERULAR FILTRATION RATE > 60.0 (>39); GLUCOSE, FASTING 110 MG/DL (70-100); HDL CHOLESTEROL 45 MG/DL (>40); IRON (FE) 54 UG/DL (50-170); LDL CHOLESTEROL 91 MG/DL (<100); NON-HDL-C 104 MG/DL; POTASSIUM SERUM 4.6 MEQ/L (3.5-5.1); SODIUM LEVEL 137 MEQ/L (136-145); THYROID STIMULATING HORMONE 0.558 uIU/ML (0.358-3.740); TOTAL 25(OH) VITAMIN D 78.6 NG/ML (30.0-100.0); TOTAL PROTEIN 6.6 GM/DL (6.4-8.2); TRIGLYCERIDES LEVEL 65 MG/DL (<150)
== END ==
LOC: M LAB 09:24
PROVIDERS: ATTEND Nurse Practitioner Adult Health
DX: E55.9 Vitamin D deficiency, unspecified (principal); D50.9 Iron deficiency anemia, unspecified; E11.9 Type 2 diabetes mellitus without complications; E78.2 Mixed hyperlipidemia; Z79.899 Other long term (current) drug therapy

== ENCOUNTER → 2021-04-16 | Outpatient (CLI) | payer MEDICARE, MEDICAID ==
--- NOTE | 2021-04-16 16:35 | REP ---
INDICATION: OTHER NON SPECIFIC FINDING OF LUNG FIELD COMPARISON: Multiple the latest 08/15/2020 contrast-enhanced exam TECHNIQUE: Standard helical technique without contrast. FINDINGS: There is no significant change in appearance of the mediastinum or pulmonary nathan. Mediastinal and hilar calcifications are noted status quo. No pleural or pericardial effusions have developed. There is no significant change in the appearance of the imaged upper abdomen or imaged osseous structures. Evaluation of the lung weber shows heavy but stable appearing biapical pleuroparenchymal scarring. Once again, there are scattered areas of varicoid and saccular bronchiectasis particularly seen in the left upper lobe, right middle lobe, and right lower lobe. There is chronic lingular atelectasis with varicoid bronchiectasis. Numerous scattered asymmetric and nodular densities are seen throughout the lung weber in a stable appearing pattern. Numerous tiny nodular densities are too numerous to count. Scattered calcified granulomas are seen throughout the lung weber status quo. I see no evidence of a significant new nodule or spiculated mass. IMPRESSION: Advanced but stable appearing chronic changes as described above. There is no revised Fleischner society criteria on the recommendation for follow-up of such advanced chronic changes. Follow-up should be based on clinical assessment. <Electronically signed by Florentino Barrios > 04/16/21 [id number]
== END ==
LOC: M RAD 16:02
PROVIDERS: ATTEND Internal Medicine Pulmonary Disease
DX: R91.8 Other nonspecific abnormal finding of lung field (principal)

== ENCOUNTER 2021-08-06 10:01 | Inpatient (IN) | payer MEDICARE, MEDICAID ==
[~2021-08-06] VITALS: Ht 152.4 cm; Wt 56.0 kg
[~2021-08-06 10:01] MED LIST changes: -D31000TA2 PO; -MONT10TA10 PO; +MONT10TA97 PO; +VITA100093 PO
[2021-08-06 10:40] LABS: BASO % 0.2 % (0.0-1.0); HEMATOCRIT 37.9 % (36.0-47.0); LYMPH # 1.1 10^3/uL (1.5-5.0); LYMPH % 8.7 % (24.0-44.0); MEAN CORPUSCULAR HEMOGLOBIN 28.1 pg (27.0-33.0); MEAN CORPUSCULAR HGB CONC 31.7 g/dl (32.0-36.5); MEAN CORPUSCULAR VOLUME 88.8 fl (80.0-96.0); MONO % 12.5 % (2.0-8.0); NEUTROPHILS # 9.8 10^3/uL (1.5-8.5); NEUTROPHILS % 78.4 % (36.0-66.0); PLATELET COUNT, AUTOMATED 299 10^3/uL (150-450); RED BLOOD COUNT 4.27 10^6/uL (4.00-5.40); WHITE BLOOD COUNT 12.5 10^3/uL (4.0-10.0)
[2021-08-06] MEDS: COMBIVENT RESPIMAT 100-20MCG INHALER 4GM INH SCH ×3 (10:41→11:30)
[2021-08-06 10:47] LABS: BLOOD UREA NITROGEN 16 MG/DL (7-18); CALCIUM LEVEL 10.8 MG/DL (8.8-10.2); CARBON DIOXIDE LEVEL 30 MEQ/L (21-32); CHLORIDE LEVEL 105 MEQ/L (98-107); GLOMERULAR FILTRATION RATE > 60.0 (>39); GLUCOSE, FASTING 160 MG/DL (70-100); POTASSIUM SERUM 4.1 MEQ/L (3.5-5.1); SODIUM LEVEL 139 MEQ/L (136-145)
[2021-08-06 10:58] LABS: ABG BASE EXCESS 3.4 (-2.0-2.0); ABG HCO3 28.6 MEQ/L (22.0-26.0); ABG PARTIAL PRESSURE CO2 46.1 mmHg (35.0-45.0); ABG PARTIAL PRESSURE O2 104.5 mmHg (75.0-100.0); ABG STANDARD HCO3 27.5 MEQ/L (22.0-26.0); ABG pH (ARTERIAL) 7.411 UNITS (7.350-7.450)
[2021-08-06 11:17] LABS: MONO # 1.6 10^3/uL (0.0-0.8)
[2021-08-06] MEDS: IPRATROPIUM 0.5MG/ALBUTEROL 2.5MG INH SOL UD 3ML (DUONEB) NEB SCH ×2 (13:02→13:03)
[2021-08-06] MEDS ORDERED: OMEP40CA4 PO (15:03)
[2021-08-06] MEDS ORDERED: D-50CAP PO (15:03)
[2021-08-06] MEDS ORDERED: HOME MED LIST COMPLETE! XX SCH (15:05)
[2021-08-06] MEDS: IPRATROPIUM 0.02% SOLN 0.5MG 2.5ML NEB NEB SCH ×2 (16:00→20:00)
[2021-08-06] MEDS: LEVALBUTEROL 1.25 MG/0.5 ML CONCENTRATE NEB NEB SCH ×2 (16:00→20:00)
[2021-08-06 16:24] VITALS: BP 161/98
[2021-08-06] MEDS: methylPREDNISolone 40MG 1ML VIAL IV SCH ×2 (17:03→22:51)
[2021-08-06] MEDS: DOXYCYCLINE HYCLATE 100MG TABLET PO SCH ×2 (17:03→20:28)
[2021-08-06] MEDS: HEPARIN SOD (PORCINE) 5000UNITS/ML 1ML VIAL/SYRINGE SC SCH ×2 (17:04→22:51)
[2021-08-06] MEDS: ADVAIR HFA 230/21MCG INHALER INH SCH (20:00)
[2021-08-06] MEDS: ATORVASTATIN 20 MG TAB PO SCH (20:29)
[2021-08-06] MEDS: LATANOPROST 0.005% OPHTH SOLN 2.5 ML OU SCH (20:29)
[2021-08-06] MEDS: METOPROLOL TART 25 MG TABLET PO SCH (20:29)
[2021-08-06] MEDS: MONTELUKAST 10 MG TAB PO SCH (20:29)
[2021-08-06 22:00] VITALS: BP 133/76
[2021-08-07] MEDS: IPRATROPIUM 0.02% SOLN 0.5MG 2.5ML NEB NEB SCH ×6 (00:33→19:58)
[2021-08-07] MEDS: LEVALBUTEROL 1.25 MG/0.5 ML CONCENTRATE NEB NEB SCH ×6 (00:33→19:58)
[2021-08-07] MEDS: methylPREDNISolone 40MG 1ML VIAL IV SCH ×4 (04:18→21:08)
[2021-08-07 05:47] VITALS: BP 119/72
[2021-08-07] MEDS: HEPARIN SOD (PORCINE) 5000UNITS/ML 1ML VIAL/SYRINGE SC SCH ×3 (06:07→21:08)
[2021-08-07 06:31] LABS: ALBUMIN 2.6 GM/DL (3.2-5.2); ALT/SGPT 44 U/L (12-78); BILIRUBIN,TOTAL 0.4 MG/DL (0.2-1.0); BLOOD UREA NITROGEN 12 MG/DL (7-18); CALCIUM LEVEL 10.7 MG/DL (8.8-10.2); CARBON DIOXIDE LEVEL 30 MEQ/L (21-32); CHLORIDE LEVEL 101 MEQ/L (98-107); CREATININE FOR GFR 0.49 MG/DL (0.55-1.30); GLOMERULAR FILTRATION RATE > 60.0 (>39); GLUCOSE, FASTING 190 MG/DL (70-100); MAGNESIUM LEVEL 2.2 MG/DL (1.8-2.4); PHOSPHORUS LEVEL 2.5 MG/DL (2.5-4.9); POTASSIUM SERUM 3.9 MEQ/L (3.5-5.1); SODIUM LEVEL 139 MEQ/L (136-145); TOTAL PROTEIN 6.7 GM/DL (6.4-8.2)
[2021-08-07] MEDS: ADVAIR HFA 230/21MCG INHALER INH SCH ×2 (07:57→19:58)
[2021-08-07 10:00] VITALS: BP 116/78
[2021-08-07] MEDS: DOXYCYCLINE HYCLATE 100MG TABLET PO SCH ×2 (10:10→21:07)
[2021-08-07] MEDS: OMEPRAZOLE 20MG CAP PO SCH (10:10)
[2021-08-07] MEDS: ASPIRIN 81MG ENTERIC TABLET PO SCH (10:10)
[2021-08-07] MEDS: METOPROLOL TART 25 MG TABLET PO SCH ×2 (10:11→21:08)
[2021-08-07 12:22] LABS: HEMATOCRIT 39.8 % (36.0-47.0); HEMOGLOBIN 12.7 g/dl (12.0-15.5); MEAN CORPUSCULAR HEMOGLOBIN 28.6 pg (27.0-33.0); MEAN CORPUSCULAR HGB CONC 31.9 g/dl (32.0-36.5); MEAN CORPUSCULAR VOLUME 89.6 fl (80.0-96.0); PLATELET COUNT, AUTOMATED 318 10^3/uL (150-450); RED BLOOD COUNT 4.44 10^6/uL (4.00-5.40); WHITE BLOOD COUNT 11.8 10^3/uL (4.0-10.0)
[2021-08-07 14:00] VITALS: BP 119/78
[2021-08-07 16:30] VITALS: O2SAT 96
[2021-08-07] MEDS ORDERED: ISOVUE-370 76% 100ML VIAL As Ordered ONE (16:54)
[2021-08-07 18:00] VITALS: BP 117/80
[2021-08-07] MEDS: ATORVASTATIN 20 MG TAB PO SCH (21:07)
[2021-08-07] MEDS: MONTELUKAST 10 MG TAB PO SCH (21:07)
[2021-08-07] MEDS: LATANOPROST 0.005% OPHTH SOLN 2.5 ML OU SCH (21:08)
[2021-08-07 22:17] VITALS: O2SAT 97
[2021-08-08] MEDS: IPRATROPIUM 0.02% SOLN 0.5MG 2.5ML NEB NEB SCH ×4 (00:27→11:44)
[2021-08-08] MEDS: LEVALBUTEROL 1.25 MG/0.5 ML CONCENTRATE NEB NEB SCH ×4 (00:27→11:44)
[2021-08-08 02:06] VITALS: BP 139/80
[2021-08-08 05:22] VITALS: BP 124/57
[2021-08-08] MEDS: HEPARIN SOD (PORCINE) 5000UNITS/ML 1ML VIAL/SYRINGE SC SCH (05:29)
[2021-08-08] MEDS ORDERED: LevoFLOXacin 750 MG TABLET PO SCH (06:00)
[2021-08-08 07:11] LABS: BASO % 0.1 % (0.0-1.0); HEMATOCRIT 35.5 % (36.0-47.0); HEMOGLOBIN 11.2 g/dl (12.0-15.5); LYMPH # 1.3 10^3/uL (1.5-5.0); LYMPH % 8.8 % (24.0-44.0); MEAN CORPUSCULAR HEMOGLOBIN 27.7 pg (27.0-33.0); MEAN CORPUSCULAR HGB CONC 31.5 g/dl (32.0-36.5); MEAN CORPUSCULAR VOLUME 87.9 fl (80.0-96.0); MONO # 1.1 10^3/uL (0.0-0.8); MONO % 7.2 % (2.0-8.0); NEUTROPHILS # 12.1 10^3/uL (1.5-8.5); NEUTROPHILS % 83.4 % (36.0-66.0); PLATELET COUNT, AUTOMATED 305 10^3/uL (150-450); RED BLOOD COUNT 4.04 10^6/uL (4.00-5.40); WHITE BLOOD COUNT 14.6 10^3/uL (4.0-10.0)
[2021-08-08 07:47] LABS: BLOOD UREA NITROGEN 14 MG/DL (7-18); CALCIUM LEVEL 10.5 MG/DL (8.8-10.2); CARBON DIOXIDE LEVEL 33 MEQ/L (21-32); CHLORIDE LEVEL 101 MEQ/L (98-107); GLOMERULAR FILTRATION RATE > 60.0 (>39); GLUCOSE, FASTING 152 MG/DL (70-100); PHOSPHORUS LEVEL 2.9 MG/DL (2.5-4.9); POTASSIUM SERUM 4.4 MEQ/L (3.5-5.1); SODIUM LEVEL 139 MEQ/L (136-145)
[2021-08-08] MEDS: ADVAIR HFA 230/21MCG INHALER INH SCH (07:52)
[2021-08-08 08:17] VITALS: BP 124/57
[2021-08-08] MEDS: ASPIRIN 81MG ENTERIC TABLET PO SCH (08:17)
[2021-08-08] MEDS: METOPROLOL TART 25 MG TABLET PO SCH (08:17)
[2021-08-08] MEDS: OMEPRAZOLE 20MG CAP PO SCH (08:17)
[2021-08-08] MEDS ORDERED: predniSONE 20 MG TAB PO SCH (09:00)
[2021-08-08 10:00] VITALS: BP 121/69
[2021-08-08] MEDS ORDERED: PRED10TA2 PO (12:28)
[2021-08-08] MEDS ORDERED: LEVO750T13 PO (12:28)
[2021-08-08] MEDS ORDERED: PRED20TA PO (14:34)
== END 2021-08-08 15:24 | disposition home health service (06) | DRG 190 ==
LOC: EDBD 10:01 → M ED 10:01 → M ED INP 14:40 → ENRESERV 15:17 → M MSPAV 16:21
PROVIDERS: ADMIT Internal Medicine; ATTEND Internal Medicine
DX: J44.1 Chronic obstructive pulmonary disease with (acute) exacerbation (principal); J18.9 Pneumonia, unspecified organism; J96.11 Chronic respiratory failure with hypoxia; Z99.81 Dependence on supplemental oxygen; E78.5 Hyperlipidemia, unspecified; I10 Essential (primary) hypertension; E11.9 Type 2 diabetes mellitus without complications; H40.9 Unspecified glaucoma; E04.2 Nontoxic multinodular goiter; D50.9 Iron deficiency anemia, unspecified; Z90.49 Acquired absence of other specified parts of digestive tract; Z90.79 Acquired absence of other genital organ(s); Z87.891 Personal history of nicotine dependence; Z79.01 Long term (current) use of anticoagulants; Z79.899 Other long term (current) drug therapy; Z88.0 Allergy status to penicillin; Z66 Do not resuscitate; J44.0 Chronic obstructive pulmonary disease with (acute) lower respiratory infection

== ENCOUNTER → 2021-09-12 | Outpatient (REF) | payer MEDICARE, MEDICAID ==
[~2021-09-12] MED LIST changes: +D-50CAP PO; +LEVO750T13 PO; +OMEP40CA4 PO
== END ==
LOC: M SFHCPLAZ 12:40
PROVIDERS: ATTEND Nurse Practitioner Adult Health
DX: J44.9 Chronic obstructive pulmonary disease, unspecified (principal)

== ENCOUNTER → 2021-09-17 | Outpatient (CLI) | payer MEDICARE, MEDICAID ==
[~2021-09-17] MED LIST changes: +ISOVUE-370 76% 100ML VIAL ONE
[2021-09-17 13:55] LABS: BLOOD UREA NITROGEN 9 MG/DL (7-18); CALCIUM LEVEL 9.4 MG/DL (8.8-10.2); CARBON DIOXIDE LEVEL 32 MEQ/L (21-32); CHLORIDE LEVEL 100 MEQ/L (98-107); GLOMERULAR FILTRATION RATE > 60.0 (>39); GLUCOSE, FASTING 90 MG/DL (70-100); POTASSIUM SERUM 4.4 MEQ/L (3.5-5.1); SODIUM LEVEL 137 MEQ/L (136-145)
== END ==
LOC: M PLAIMG 10:50
PROVIDERS: ATTEND Nurse Practitioner Adult Health
DX: J44.9 Chronic obstructive pulmonary disease, unspecified (principal); Z87.09 Personal history of other diseases of the respiratory system
CPT/HCPCS: 36415; 71275; 80048; Q9967

== ENCOUNTER → 2021-11-18 | Outpatient (CLI) | payer MEDICARE, MEDICAID ==
[~2021-11-18] MED LIST changes: -ISOVUE-370 76% 100ML VIAL ONE
== END ==
LOC: M RAD 12:19
PROVIDERS: ATTEND Otolaryngology
DX: E04.2 Nontoxic multinodular goiter (principal)

== ENCOUNTER → 2021-12-23 | Outpatient (CLI) | payer MEDICARE, MEDICAID ==
[~2021-12-23] MED LIST changes: +LEVO1TAB40 PO; -LEVO750T13 PO
== END ==
LOC: M SOG 14:04
PROVIDERS: ATTEND Orthopaedic Surgery Hand Surgery
DX: M79.644 Pain in right finger(s) (principal)

== ENCOUNTER → 2022-01-06 | Outpatient (CLI) | payer MEDICARE, MEDICAID ==
[2022-01-06 16:23] LABS: ALBUMIN 3.4 GM/DL (3.2-5.2); ALT/SGPT 20 U/L (12-78); BILIRUBIN,TOTAL 0.4 MG/DL (0.2-1.0); BLOOD UREA NITROGEN 5 MG/DL (7-18); CALCIUM LEVEL 9.8 MG/DL (8.8-10.2); CARBON DIOXIDE LEVEL 31 MEQ/L (21-32); CHLORIDE LEVEL 100 MEQ/L (98-107); CHOLESTEROL LEVEL 153 MG/DL (<200); CHOLESTEROL RISK RATIO 3.122 (<5); CREATININE FOR GFR 0.54 MG/DL (0.55-1.30); GLOMERULAR FILTRATION RATE > 60.0 (>39); GLUCOSE, FASTING 100 MG/DL (70-100); HDL CHOLESTEROL 49 MG/DL (>40); LDL CHOLESTEROL 85 MG/DL (<100); NON-HDL-C 104 MG/DL; POTASSIUM SERUM 4.7 MEQ/L (3.5-5.1); SODIUM LEVEL 134 MEQ/L (136-145); TRIGLYCERIDES LEVEL 96 MG/DL (<150)
[2022-01-06 17:08] LABS: TOTAL 25(OH) VITAMIN D 89.6 NG/ML (30.0-100.0)
== END ==
LOC: M PLALAB 12:43
PROVIDERS: ATTEND Nurse Practitioner Adult Health
DX: E55.9 Vitamin D deficiency, unspecified (principal); E11.9 Type 2 diabetes mellitus without complications; E78.2 Mixed hyperlipidemia; Z79.899 Other long term (current) drug therapy

== ENCOUNTER → 2022-10-30 | Outpatient (CLI) | payer MEDICARE, MEDICAID | LOC: M RAD 11:03 | PROVIDERS: ATTEND Otolaryngology | DX: E04.2 Nontoxic multinodular goiter (principal) ==

== ENCOUNTER 2023-06-21 09:17 | Inpatient (IN) | payer MEDICARE, MEDICAID ==
[~2023-06-21] VITALS: Ht 154.9 cm; Wt 44.6 kg
[2023-06-21 09:46] VITALS: O2SAT 92
[2023-06-21] MEDS: ALBUTEROL SULFATE 2.5MG/0.5ML INH NEB SOLN INH ONE (09:46)
[2023-06-21] MEDS: IPRATROPIUM 0.5MG/ALBUTEROL 2.5MG INH SOL UD 3ML (DUONEB) NEB ONE (09:46)
[2023-06-21 10:02] LABS: ABG BASE EXCESS 6.6 (-2.0-2.0); ABG O2 SATURATION 94.8 % (95.0-99.0); ABG PARTIAL PRESSURE CO2 48.6 mmHg (35.0-45.0); ABG PARTIAL PRESSURE O2 72.3 mmHg (75.0-100.0); ABG STANDARD HCO3 30.4 MMOL/L. (22.0-26.0); ABG TOTAL CO2 33.5 MMOL/L (23.0-31.0); ABG pH (ARTERIAL) 7.436 UNITS (7.350-7.450)
[2023-06-21] MEDS: NS 500 ML IV ONE (10:06)
[2023-06-21] MEDS: methylPREDNISolone 125MG 2ML VIAL IV ONE (10:06)
[2023-06-21 10:15] LABS: BASO % 0.2 % (0.0-1.0); HEMOGLOBIN 12.2 g/dl (12.0-15.5); LYMPH # 0.4 10^3/uL (1.5-5.0); LYMPH % 2.3 % (24.0-44.0); MEAN CORPUSCULAR HEMOGLOBIN 27.7 pg (27.0-33.0); MEAN CORPUSCULAR HGB CONC 32.1 g/dl (32.0-36.5); MEAN CORPUSCULAR VOLUME 86.4 fl (80.0-96.0); MONO # 1.5 10^3/uL (0.0-0.8); MONO % 9.8 % (2.0-8.0); NEUTROPHILS # 13.3 10^3/uL (1.5-8.5); PLATELET COUNT, AUTOMATED 440 10^3/uL (150-450); WHITE BLOOD COUNT 15.3 10^3/uL (4.0-10.0)
[2023-06-21] MEDS ORDERED: ISOVUE-370 76% 100ML VIAL As Ordered ONE (10:22)
[2023-06-21 10:43] LABS: CK-MB VALUE MASS < 1.0 NG/ML (<3.6)
[2023-06-21 10:46] LABS: ALBUMIN 2.4 G/DL (3.2-5.2); ALKALINE PHOSPHATASE 141 U/L (46-116); ALT/SGPT 21 U/L (7.0-40); AST/SGOT 36 U/L (<34); BILIRUBIN,DIRECT 0.3 MG/DL (<0.4); BILIRUBIN,TOTAL 0.6 MG/DL (0.3-1.2); BLOOD UREA NITROGEN 34 MG/DL (9-23); CALCIUM LEVEL 11.6 MG/DL (8.3-10.6); CARBON DIOXIDE LEVEL 30 MMOL/L (20-31); CHLORIDE LEVEL 103 MMOL/L (98-107); CREATININE FOR GFR 0.48 MG/DL (0.55-1.30); GLOMERULAR FILTRATION RATE > 60.0 (>32); GLUCOSE, FASTING 159 MG/DL (74-106); MAGNESIUM LEVEL 2.3 MG/DL (1.8-2.4); POTASSIUM SERUM 4.3 MMOL/L (3.5-5.1); SODIUM LEVEL 141 MMOL/L (136-145); TOTAL PROTEIN 6.5 G/DL (5.7-8.2)
[2023-06-21 10:47] LABS: THYROID STIMULATING HORMONE 0.117 uIU/ML (0.55-4.78)
[2023-06-21 10:52] LABS: PROCALCITONIN 0.36 ng/ml
[2023-06-21 10:55] LABS: CPK CREATINE PHOSPHOKINASE 40 U/L (34-145)
[2023-06-21] MEDS ORDERED: BRIN8DRO OU (11:19)
[2023-06-21] MEDS ORDERED: FLUT1BLS6 IH (11:19)
[2023-06-21 11:24] LABS: CK-MB VALUE MASS < 1.0 NG/ML (<3.6); CPK CREATINE PHOSPHOKINASE 68 U/L (34-145); MB/CK RELATIVE INDEX 1.47 (< OR =4)
[2023-06-21] MEDS ORDERED: LISI10TA22 PO (11:27)
[2023-06-21] MEDS ORDERED: METO25TA4 PO (11:27)
[2023-06-21] MEDS ORDERED: ALBU2.5V10 INH (11:28)
[2023-06-21] MEDS: cefTRIAXone SOD 2 GM in D5W MINI-BAG PLUS 50 ML IV ONE (11:29)
[2023-06-21] MEDS ORDERED: HOME MED LIST COMPLETE! XX SCH (11:30)
[2023-06-21] MEDS: NS 1,000 ML IV ONE (11:30)
[2023-06-21] MEDS: DOXYCYCLINE HYCLATE 100 MG in D5W MINI-BAG PLUS 100 ML IV ONE (12:27)
[2023-06-21 13:30] VITALS: BP 142/84; TEMP 97.7; O2SAT 94
[2023-06-21 14:09] LABS: PROCALCITONIN 0.29 ng/ml
[2023-06-21] MEDS ORDERED: ALBUTEROL SULFATE 2.5MG/0.5ML INH NEB SOLN INH PRN (14:10)
[2023-06-21 14:22] LABS: FREE T4 1.41 NG/DL (0.89-1.76)
[2023-06-21] MEDS: IPRATROPIUM 0.5MG/ALBUTEROL 2.5MG INH SOL UD 3ML (DUONEB) NEB PRN (14:31)
[2023-06-21] MEDS: AZITHROMYCIN 250MG TABLET PO SCH (15:28)
[2023-06-21] MEDS: CEFEPIME HCL 2 GM in D5W MINI-BAG PLUS 50 ML IV SCH (15:28)
[2023-06-21 16:35] LABS: BLOOD UREA NITROGEN 26 MG/DL (9-23); CALCIUM LEVEL 10.5 MG/DL (8.3-10.6); CARBON DIOXIDE LEVEL 26 MMOL/L (20-31); CHLORIDE LEVEL 105 MMOL/L (98-107); CREATININE FOR GFR 0.36 MG/DL (0.55-1.30); GLOMERULAR FILTRATION RATE > 60.0 (>32); GLUCOSE, FASTING 178 MG/DL (74-106); POTASSIUM SERUM 4.4 MMOL/L (3.5-5.1); SODIUM LEVEL 139 MMOL/L (136-145)
[2023-06-21] MEDS: ADVAIR HFA 230/21MCG INHALER INH SCH (19:38)
[2023-06-21 20:40] VITALS: BP 153/98; TEMP 97.7; O2SAT 93
[2023-06-21] MEDS: MONTELUKAST 10 MG TAB PO SCH (20:50)
[2023-06-21] MEDS: ATORVASTATIN 20 MG TAB PO SCH (20:50)
[2023-06-21] MEDS: METOPROLOL TART 25 MG TABLET PO SCH (20:50)
[2023-06-21] MEDS: ENOXAPARIN 40MG/0.4ML SYRINGE (J1650 PER 10MG) SC SCH (20:51)
[2023-06-21] MEDS: BRINZOLAMIDE 1% OPHTH SUSP (AZOPT) 10ML OU SCH (20:51)
[2023-06-21] MEDS: BRIMONIDINE 0.1% OPHTH SOLN 5ML OU SCH (20:51)
[2023-06-21] MEDS ORDERED: ADVAIR HFA 115/21MCG INHALER INH SCH (21:00)
[2023-06-22 06:00] VITALS: BP 142/70; TEMP 97.5; O2SAT 97
[2023-06-22 06:31] LABS: BASO % 0.1 % (0.0-1.0); HEMATOCRIT 33.3 % (36.0-47.0); HEMOGLOBIN 10.7 g/dl (12.0-15.5); LYMPH # 0.9 10^3/uL (1.5-5.0); LYMPH % 6.2 % (24.0-44.0); MEAN CORPUSCULAR HEMOGLOBIN 27.9 pg (27.0-33.0); MEAN CORPUSCULAR HGB CONC 32.1 g/dl (32.0-36.5); MEAN CORPUSCULAR VOLUME 86.7 fl (80.0-96.0); MONO # 0.6 10^3/uL (0.0-0.8); MONO % 4.6 % (2.0-8.0); NEUTROPHILS # 12.1 10^3/uL (1.5-8.5); NEUTROPHILS % 88.4 % (36.0-66.0); PLATELET COUNT, AUTOMATED 344 10^3/uL (150-450); RED BLOOD COUNT 3.84 10^6/uL (4.00-5.40); WHITE BLOOD COUNT 13.7 10^3/uL (4.0-10.0)
[2023-06-22 06:51] LABS: ALBUMIN 1.8 G/DL (3.2-5.2); ALKALINE PHOSPHATASE 115 U/L (46-116); ALT/SGPT 23 U/L (7.0-40); AST/SGOT 37 U/L (<34); BILIRUBIN,TOTAL 0.5 MG/DL (0.3-1.2); BLOOD UREA NITROGEN 24 MG/DL (9-23); CARBON DIOXIDE LEVEL 33 MMOL/L (20-31); CHLORIDE LEVEL 107 MMOL/L (98-107); GLOMERULAR FILTRATION RATE > 60.0 (>32); GLUCOSE, FASTING 152 MG/DL (74-106); SODIUM LEVEL 142 MMOL/L (136-145); TOTAL PROTEIN 5.4 G/DL (5.7-8.2)
[2023-06-22] MEDS: TIOTROPIUM INHALER/CAPSULE (SPIRIVA) INH SCH (07:36)
[2023-06-22] MEDS: ASPIRIN 81MG ENTERIC TABLET PO SCH (09:57)
[2023-06-22] MEDS: LATANOPROST 0.005% OPHTH SOLN 2.5 ML OU SCH (09:57)
[2023-06-22] MEDS: predniSONE 20 MG TAB PO SCH (09:58)
[2023-06-22] MEDS: OMEPRAZOLE 20MG CAP PO SCH (09:58)
[2023-06-22 14:00] VITALS: BP 150/77; TEMP 97.5; O2SAT 96
[2023-06-22] MEDS ORDERED: VARIBAR NECTAR 40% w/v 240ML SUSP BTL As Ordered ONE (15:04)
[2023-06-22] MEDS ORDERED: VARIBAR PUDDING 40% w/v 230ML TUBE As Ordered ONE (15:04)
[2023-06-22] MEDS ORDERED: E-Z-PAQUE 96% w/w SUSP 176GM BTL As Ordered ONE (15:04)
[2023-06-22 18:50] VITALS: TEMP 99.7
[2023-06-22 20:03] VITALS: BP 166/94; TEMP 97.9; O2SAT 97
[2023-06-22 22:10] LABS: BASO % 0.1 % (0.0-1.0); HEMATOCRIT 31.3 % (36.0-47.0); HEMOGLOBIN 10.2 g/dl (12.0-15.5); LYMPH # 1.1 10^3/uL (1.5-5.0); LYMPH % 8.8 % (24.0-44.0); MEAN CORPUSCULAR HEMOGLOBIN 28.2 pg (27.0-33.0); MEAN CORPUSCULAR HGB CONC 32.6 g/dl (32.0-36.5); MEAN CORPUSCULAR VOLUME 86.5 fl (80.0-96.0); MONO # 0.7 10^3/uL (0.0-0.8); MONO % 5.6 % (2.0-8.0); NEUTROPHILS # 10.9 10^3/uL (1.5-8.5); NEUTROPHILS % 84.6 % (36.0-66.0); PLATELET COUNT, AUTOMATED 349 10^3/uL (150-450); RED BLOOD COUNT 3.62 10^6/uL (4.00-5.40); WHITE BLOOD COUNT 12.8 10^3/uL (4.0-10.0)
[2023-06-22 23:33] LABS: ALKALINE PHOSPHATASE 105 U/L (46-116); ALT/SGPT 34 U/L (7.0-40); AST/SGOT 55 U/L (<34); BILIRUBIN,TOTAL 0.4 MG/DL (0.3-1.2); BLOOD UREA NITROGEN 26 MG/DL (9-23); CALCIUM LEVEL 11.2 MG/DL (8.3-10.6); CARBON DIOXIDE LEVEL 32 MMOL/L (20-31); CHLORIDE LEVEL 104 MMOL/L (98-107); CREATININE FOR GFR 0.42 MG/DL (0.55-1.30); GLOMERULAR FILTRATION RATE > 60.0 (>32); GLUCOSE, FASTING 168 MG/DL (74-106); MAGNESIUM LEVEL 1.9 MG/DL (1.8-2.4); POTASSIUM SERUM 4.2 MMOL/L (3.5-5.1); SODIUM LEVEL 138 MMOL/L (136-145)
[2023-06-23 04:34] VITALS: BP 138/65; TEMP 97.7; O2SAT 98
[2023-06-23 06:05] LABS: HEMATOCRIT 33.1 % (36.0-47.0); HEMOGLOBIN 10.5 g/dl (12.0-15.5); MEAN CORPUSCULAR HEMOGLOBIN 27.8 pg (27.0-33.0); MEAN CORPUSCULAR HGB CONC 31.7 g/dl (32.0-36.5); MEAN CORPUSCULAR VOLUME 87.6 fl (80.0-96.0); PLATELET COUNT, AUTOMATED 378 10^3/uL (150-450); RED BLOOD COUNT 3.78 10^6/uL (4.00-5.40); WHITE BLOOD COUNT 16.1 10^3/uL (4.0-10.0)
[2023-06-23 07:14] LABS: ATYPICAL LYMPH 12 % (0-5); LYMPHOCYTES 3 % (16-44); MONOCYTES 5 % (0-5); NEUTROPHILS 80 % (28-66); PLATELET ESTIMATE NORMAL (NORMAL)
[2023-06-23 07:15] LABS: TOXIC VACUOLATION 1+
[2023-06-23 07:18] LABS: SCHISTOCYTES 2+
[2023-06-23 07:32] LABS: ALBUMIN 1.8 G/DL (3.2-5.2); ALKALINE PHOSPHATASE 109 U/L (46-116); ALT/SGPT 35 U/L (7.0-40); AST/SGOT 47 U/L (<34); BILIRUBIN,TOTAL 0.5 MG/DL (0.3-1.2); BLOOD UREA NITROGEN 26 MG/DL (9-23); CARBON DIOXIDE LEVEL 35 MMOL/L (20-31); CHLORIDE LEVEL 104 MMOL/L (98-107); CREATININE FOR GFR 0.45 MG/DL (0.55-1.30); GLOMERULAR FILTRATION RATE > 60.0 (>32); GLUCOSE, FASTING 126 MG/DL (74-106); MAGNESIUM LEVEL 1.9 MG/DL (1.8-2.4); POTASSIUM SERUM 4.5 MMOL/L (3.5-5.1); SODIUM LEVEL 140 MMOL/L (136-145); TOTAL PROTEIN 5.4 G/DL (5.7-8.2)
[2023-06-23] MEDS: SENNA 8.6 MG TAB (SENOKOT) PO PRN (10:08)
[2023-06-23 14:00] VITALS: BP 152/81; TEMP 97.7; O2SAT 96
[2023-06-23] MEDS: MIRALAX *UNIT DOSE* 17GM PACKET PO PRN (15:58)
[2023-06-23 20:31] VITALS: BP 151/97; TEMP 97.9; O2SAT 94
[2023-06-24 04:55] VITALS: BP 153/93; TEMP 97.3; O2SAT 94
[2023-06-24 05:53] LABS: BASO % 0.2 % (0.0-1.0); HEMATOCRIT 35.2 % (36.0-47.0); LYMPH % 16.3 % (24.0-44.0); MEAN CORPUSCULAR HEMOGLOBIN 27.2 pg (27.0-33.0); MEAN CORPUSCULAR HGB CONC 31.3 g/dl (32.0-36.5); MEAN CORPUSCULAR VOLUME 87.1 fl (80.0-96.0); MONO # 0.9 10^3/uL (0.0-0.8); MONO % 7.5 % (2.0-8.0); NEUTROPHILS # 9.2 10^3/uL (1.5-8.5); NEUTROPHILS % 74.8 % (36.0-66.0); PLATELET COUNT, AUTOMATED 412 10^3/uL (150-450); RED BLOOD COUNT 4.04 10^6/uL (4.00-5.40); WHITE BLOOD COUNT 12.2 10^3/uL (4.0-10.0)
[2023-06-24 06:14] LABS: ALKALINE PHOSPHATASE 105 U/L (46-116); ALT/SGPT 35 U/L (7.0-40); AST/SGOT 33 U/L (<34); BILIRUBIN,TOTAL 0.5 MG/DL (0.3-1.2); BLOOD UREA NITROGEN 21 MG/DL (9-23); CALCIUM LEVEL 10.8 MG/DL (8.3-10.6); CARBON DIOXIDE LEVEL 36 MMOL/L (20-31); CHLORIDE LEVEL 100 MMOL/L (98-107); GLOMERULAR FILTRATION RATE > 60.0 (>32); GLUCOSE, FASTING 127 MG/DL (74-106); MAGNESIUM LEVEL 1.8 MG/DL (1.8-2.4); POTASSIUM SERUM 4.6 MMOL/L (3.5-5.1); SODIUM LEVEL 140 MMOL/L (136-145); TOTAL PROTEIN 5.7 G/DL (5.7-8.2)
[2023-06-24 09:22] LABS: FREE T4 1.22 NG/DL (0.89-1.76); THYROID STIMULATING HORMONE 0.153 uIU/ML (0.55-4.78)
[2023-06-24 10:09] LABS: FREE T3 2.3 PG/ML (2.3-4.2)
[2023-06-24 14:00] VITALS: BP 155/83; TEMP 97.7; O2SAT 98
[2023-06-24 16:20] LABS: PHOSPHORUS LEVEL 3.2 MG/DL (2.4-5.1); PTH INTACT 92.2 PG/ML (18.5-88.0)
[2023-06-24 16:22] LABS: TOTAL 25(OH) VITAMIN D 82.8 NG/ML (20.0-100.0)
[2023-06-24 20:00] VITALS: BP 142/74; TEMP 98.1; O2SAT 98
[2023-06-25] MEDS: LevoFLOXacin 750 MG TABLET PO SCH (05:46)
[2023-06-25 06:00] VITALS: BP 153/84; TEMP 97.9; O2SAT 94
[2023-06-25 06:14] LABS: BASO % 0.1 % (0.0-1.0); EOS % 0.1 % (0.0-3.0); HEMATOCRIT 34.1 % (36.0-47.0); HEMOGLOBIN 10.7 g/dl (12.0-15.5); LYMPH # 1.7 10^3/uL (1.5-5.0); MEAN CORPUSCULAR HEMOGLOBIN 27.6 pg (27.0-33.0); MEAN CORPUSCULAR HGB CONC 31.4 g/dl (32.0-36.5); MEAN CORPUSCULAR VOLUME 87.9 fl (80.0-96.0); MONO % 8.7 % (2.0-8.0); NEUTROPHILS # 8.3 10^3/uL (1.5-8.5); NEUTROPHILS % 74.8 % (36.0-66.0); PLATELET COUNT, AUTOMATED 372 10^3/uL (150-450); RED BLOOD COUNT 3.88 10^6/uL (4.00-5.40)
[2023-06-25 06:47] LABS: ALBUMIN 1.9 G/DL (3.2-5.2); ALKALINE PHOSPHATASE 90 U/L (46-116); ALT/SGPT 29 U/L (7.0-40); AST/SGOT 22 U/L (<34); BILIRUBIN,TOTAL 0.4 MG/DL (0.3-1.2); BLOOD UREA NITROGEN 20 MG/DL (9-23); CALCIUM LEVEL 10.7 MG/DL (8.3-10.6); CARBON DIOXIDE LEVEL 40 MMOL/L (20-31); CHLORIDE LEVEL 98 MMOL/L (98-107); CREATININE FOR GFR 0.38 MG/DL (0.55-1.30); GLOMERULAR FILTRATION RATE > 60.0 (>32); GLUCOSE, FASTING 139 MG/DL (74-106); MAGNESIUM LEVEL 1.9 MG/DL (1.8-2.4); POTASSIUM SERUM 5.1 MMOL/L (3.5-5.1); SODIUM LEVEL 137 MMOL/L (136-145); TOTAL PROTEIN 5.3 G/DL (5.7-8.2)
[2023-06-25] MEDS: ASPIRIN 81MG CHEW TABLET PO SCH (10:39)
[2023-06-25 12:30] LABS: ABG BASE EXCESS 6.9 (-2.0-2.0); ABG O2 SATURATION 99.5 % (95.0-99.0); ABG PARTIAL PRESSURE CO2 47.5 mmHg (35.0-45.0); ABG PARTIAL PRESSURE O2 174.6 mmHg (75.0-100.0); ABG STANDARD HCO3 30.8 MMOL/L. (22.0-26.0); ABG TOTAL CO2 33.4 MMOL/L (23.0-31.0); ABG pH (ARTERIAL) 7.446 UNITS (7.350-7.450)
[2023-06-25 14:00] VITALS: BP 146/74; TEMP 97.5; O2SAT 96
[2023-06-25] MEDS: NYSTATIN 500,000U/5ML SUSP UDC SS SCH (18:51)
[2023-06-25] MEDS: NS 1,000 ML IV SCH (18:51)
[2023-06-25 20:18] VITALS: BP 148/72; TEMP 97.5; O2SAT 96
[2023-06-25] MEDS: LEVALBUTEROL HFA 45MCG/ACT 15GM INHALER INH PRN (23:51)
[2023-06-26 05:28] VITALS: BP 150/78; TEMP 97.9; O2SAT 97
[2023-06-26 06:17] LABS: BASO % 0.1 % (0.0-1.0); EOS # 0.1 10^3/uL (0.0-0.5); EOS % 0.3 % (0.0-3.0); HEMOGLOBIN 10.8 g/dl (12.0-15.5); LYMPH % 13.9 % (24.0-44.0); MEAN CORPUSCULAR HEMOGLOBIN 27.4 pg (27.0-33.0); MEAN CORPUSCULAR HGB CONC 30.9 g/dl (32.0-36.5); MEAN CORPUSCULAR VOLUME 88.8 fl (80.0-96.0); MONO # 1.1 10^3/uL (0.0-0.8); MONO % 7.5 % (2.0-8.0); NEUTROPHILS # 11.2 10^3/uL (1.5-8.5); NEUTROPHILS % 76.6 % (36.0-66.0); PLATELET COUNT, AUTOMATED 400 10^3/uL (150-450); RED BLOOD COUNT 3.94 10^6/uL (4.00-5.40); WHITE BLOOD COUNT 14.7 10^3/uL (4.0-10.0)
[2023-06-26 06:43] LABS: ALKALINE PHOSPHATASE 90 U/L (46-116); ALT/SGPT 33 U/L (7.0-40); AST/SGOT 24 U/L (<34); BILIRUBIN,TOTAL 0.5 MG/DL (0.3-1.2); BLOOD UREA NITROGEN 21 MG/DL (9-23); CALCIUM LEVEL 10.6 MG/DL (8.3-10.6); CARBON DIOXIDE LEVEL 39 MMOL/L (20-31); CHLORIDE LEVEL 101 MMOL/L (98-107); CREATININE FOR GFR 0.41 MG/DL (0.55-1.30); GLOMERULAR FILTRATION RATE > 60.0 (>32); GLUCOSE, FASTING 99 MG/DL (74-106); POTASSIUM SERUM 5.1 MMOL/L (3.5-5.1); SODIUM LEVEL 140 MMOL/L (136-145); TOTAL PROTEIN 5.4 G/DL (5.7-8.2)
[2023-06-26 14:00] VITALS: BP 118/64; TEMP 98.1; O2SAT 98
[2023-06-26 20:22] VITALS: BP 138/71; TEMP 97.9; O2SAT 96
[2023-06-27 05:23] VITALS: BP 132/66; TEMP 97.9; O2SAT 98
[2023-06-27 05:52] LABS: BASO % 0.1 % (0.0-1.0); EOS # 0.1 10^3/uL (0.0-0.5); EOS % 0.7 % (0.0-3.0); HEMATOCRIT 33.1 % (36.0-47.0); HEMOGLOBIN 10.1 g/dl (12.0-15.5); LYMPH # 2.4 10^3/uL (1.5-5.0); LYMPH % 19.2 % (24.0-44.0); MEAN CORPUSCULAR HEMOGLOBIN 27.4 pg (27.0-33.0); MEAN CORPUSCULAR HGB CONC 30.5 g/dl (32.0-36.5); MEAN CORPUSCULAR VOLUME 89.9 fl (80.0-96.0); MONO % 8.4 % (2.0-8.0); NEUTROPHILS # 8.7 10^3/uL (1.5-8.5); NEUTROPHILS % 70.1 % (36.0-66.0); PLATELET COUNT, AUTOMATED 403 10^3/uL (150-450); RED BLOOD COUNT 3.68 10^6/uL (4.00-5.40); WHITE BLOOD COUNT 12.4 10^3/uL (4.0-10.0)
[2023-06-27 06:17] LABS: ALBUMIN 1.8 G/DL (3.2-5.2); ALKALINE PHOSPHATASE 76 U/L (46-116); ALT/SGPT 33 U/L (7.0-40); AST/SGOT 23 U/L (<34); BILIRUBIN,TOTAL 0.5 MG/DL (0.3-1.2); BLOOD UREA NITROGEN 15 MG/DL (9-23); CALCIUM LEVEL 9.4 MG/DL (8.3-10.6); CARBON DIOXIDE LEVEL 38 MMOL/L (20-31); CHLORIDE LEVEL 104 MMOL/L (98-107); CREATININE FOR GFR 0.39 MG/DL (0.55-1.30); GLOMERULAR FILTRATION RATE > 60.0 (>32); GLUCOSE, FASTING 68 MG/DL (74-106); MAGNESIUM LEVEL 1.9 MG/DL (1.8-2.4); POTASSIUM SERUM 4.7 MMOL/L (3.5-5.1); SODIUM LEVEL 142 MMOL/L (136-145); TOTAL PROTEIN 4.9 G/DL (5.7-8.2)
[2023-06-27] MEDS: predniSONE 10MG TAB PO SCH (08:13)
[2023-06-27 14:00] VITALS: BP 130/62; TEMP 97.9; O2SAT 95
[2023-06-27 20:13] VITALS: BP 159/79; TEMP 98.1; O2SAT 96
[2023-06-28 05:42] VITALS: BP 133/72; TEMP 97.9; O2SAT 98
[2023-06-28 06:15] LABS: BASO % 0.1 % (0.0-1.0); EOS # 0.1 10^3/uL (0.0-0.5); EOS % 0.9 % (0.0-3.0); HEMATOCRIT 29.6 % (36.0-47.0); HEMOGLOBIN 9.2 g/dl (12.0-15.5); LYMPH # 1.9 10^3/uL (1.5-5.0); LYMPH % 20.9 % (24.0-44.0); MEAN CORPUSCULAR HGB CONC 31.1 g/dl (32.0-36.5); MONO # 0.9 10^3/uL (0.0-0.8); MONO % 10.3 % (2.0-8.0); NEUTROPHILS % 66.5 % (36.0-66.0); PLATELET COUNT, AUTOMATED 373 10^3/uL (150-450); RED BLOOD COUNT 3.29 10^6/uL (4.00-5.40)
[2023-06-28 06:55] LABS: ALBUMIN 1.8 G/DL (3.2-5.2); ALKALINE PHOSPHATASE 70 U/L (46-116); ALT/SGPT 28 U/L (7.0-40); AST/SGOT 18 U/L (<34); BILIRUBIN,TOTAL 0.4 MG/DL (0.3-1.2); BLOOD UREA NITROGEN 13 MG/DL (9-23); CALCIUM LEVEL 8.8 MG/DL (8.3-10.6); CARBON DIOXIDE LEVEL 36 MMOL/L (20-31); CHLORIDE LEVEL 104 MMOL/L (98-107); CREATININE FOR GFR 0.54 MG/DL (0.55-1.30); GLOMERULAR FILTRATION RATE > 60.0 (>32); GLUCOSE, FASTING 114 MG/DL (74-106); MAGNESIUM LEVEL 1.8 MG/DL (1.8-2.4); POTASSIUM SERUM 4.4 MMOL/L (3.5-5.1); SODIUM LEVEL 141 MMOL/L (136-145); TOTAL PROTEIN 4.6 G/DL (5.7-8.2)
[2023-06-28 14:00] VITALS: BP 132/61; TEMP 98.1; O2SAT 99
[2023-06-28] MEDS ORDERED: PILL CUTTER 1 EACH XX PRN (15:35)
[2023-06-28 20:40] VITALS: BP 152/69; TEMP 97.9; O2SAT 98
[2023-06-29 05:02] VITALS: BP 149/70; TEMP 98.1; O2SAT 96
[2023-06-29 06:11] LABS: BASO % 0.1 % (0.0-1.0); EOS # 0.1 10^3/uL (0.0-0.5); EOS % 1.2 % (0.0-3.0); HEMATOCRIT 33.7 % (36.0-47.0); HEMOGLOBIN 10.1 g/dl (12.0-15.5); LYMPH # 2.5 10^3/uL (1.5-5.0); LYMPH % 27.7 % (24.0-44.0); MEAN CORPUSCULAR HEMOGLOBIN 27.2 pg (27.0-33.0); MEAN CORPUSCULAR VOLUME 90.8 fl (80.0-96.0); MONO % 10.6 % (2.0-8.0); NEUTROPHILS # 5.3 10^3/uL (1.5-8.5); NEUTROPHILS % 59.5 % (36.0-66.0); PLATELET COUNT, AUTOMATED 420 10^3/uL (150-450); RED BLOOD COUNT 3.71 10^6/uL (4.00-5.40)
[2023-06-29 06:25] LABS: BLOOD UREA NITROGEN 11 MG/DL (9-23); CALCIUM LEVEL 9.3 MG/DL (8.3-10.6); CARBON DIOXIDE LEVEL 37 MMOL/L (20-31); CHLORIDE LEVEL 101 MMOL/L (98-107); CREATININE FOR GFR 0.39 MG/DL (0.55-1.30); GLOMERULAR FILTRATION RATE > 60.0 (>32); GLUCOSE, FASTING 82 MG/DL (74-106); MAGNESIUM LEVEL 1.9 MG/DL (1.8-2.4); POTASSIUM SERUM 4.2 MMOL/L (3.5-5.1); SODIUM LEVEL 137 MMOL/L (136-145)
[2023-06-29] MEDS ORDERED: PRED10TA2 PO (09:21)
[2023-06-29] MEDS ORDERED: METH25TAB PO (09:21)
[2023-06-29] MEDS ORDERED: MIRA33506 PO (09:21)
[2023-06-29] MEDS ORDERED: NYST-38 SS (09:21)
[2023-06-29] MEDS ORDERED: VITAD1000T PO (09:22)
[2023-06-29] MEDS: VITAMIN D 1,000 INTERNATIONAL UNITS TABLET PO SCH (09:53)
[2023-06-29 09:54] VITALS: BP 127/58
[2023-06-29 14:00] VITALS: BP 123/64; TEMP 98.1; O2SAT 94
== END 2023-06-29 16:13 | disposition home health service (06) | DRG 190 ==
LOC: M ED 09:17 → M ED INP 12:07 → ENRESERV 12:50 → M MSPAV 13:28
PROVIDERS: ADMIT Internal Medicine; ATTEND Internal Medicine
DX: J47.1 Bronchiectasis with (acute) exacerbation (principal); J15.69 Pneumonia due to other Gram-negative bacteria; J44.0 Chronic obstructive pulmonary disease with (acute) lower respiratory infection; J96.11 Chronic respiratory failure with hypoxia; R64 Cachexia; Z68.1 Body mass index [BMI] 19.9 or less, adult; E46 Unspecified protein-calorie malnutrition; B37.0 Candidal stomatitis; J44.1 Chronic obstructive pulmonary disease with (acute) exacerbation; J96.12 Chronic respiratory failure with hypercapnia; J47.0 Bronchiectasis with acute lower respiratory infection; E05.90 Thyrotoxicosis, unspecified without thyrotoxic crisis or storm; K21.9 Gastro-esophageal reflux disease without esophagitis; I10 Essential (primary) hypertension; F43.10 Post-traumatic stress disorder, unspecified; E78.5 Hyperlipidemia, unspecified; E11.9 Type 2 diabetes mellitus without complications; E83.52 Hypercalcemia; D50.9 Iron deficiency anemia, unspecified; J38.00 Paralysis of vocal cords and larynx, unspecified; H40.9 Unspecified glaucoma; Z90.49 Acquired absence of other specified parts of digestive tract; Z90.79 Acquired absence of other genital organ(s); Z99.81 Dependence on supplemental oxygen; Z79.82 Long term (current) use of aspirin; Z79.899 Other long term (current) drug therapy; Z88.0 Allergy status to penicillin; Z11.52 Encounter for screening for COVID-19

== ENCOUNTER → 2023-10-04 | Outpatient (CLI) | payer MEDICARE ==
[~2023-10-04] MED LIST changes: +ALBU2.5V10 INH; +BRIN8DRO OU; +FLUT1BLS6 IH; +METH25TAB PO; +METO25TA4 PO; +MIRA33506 PO; +NYST-38 SS; +VITAD1000T PO
== END ==
LOC: M RAD 11:58
PROVIDERS: ATTEND Internal Medicine Pulmonary Disease
DX: R91.8 Other nonspecific abnormal finding of lung field (principal); J43.8 Other emphysema; J47.9 Bronchiectasis, uncomplicated

== ENCOUNTER → 2023-11-02 | Outpatient (CLI) | payer MEDICARE, MEDICAID | LOC: M PLARAD 11:13 | PROVIDERS: ATTEND Internal Medicine Pulmonary Disease | DX: R91.8 Other nonspecific abnormal finding of lung field (principal) | CPT/HCPCS: 78815; A9552 ==

== ENCOUNTER → 2023-12-16 | Outpatient (CLI) | payer MEDICARE, MEDICAID ==
[~2023-12-16] MED LIST changes: +TRAV2.5D OU
== END ==
LOC: M RAD 10:38
PROVIDERS: ATTEND Otolaryngology
DX: E04.2 Nontoxic multinodular goiter (principal)

== ENCOUNTER → 2023-12-29 | Outpatient (CLI) | payer MEDICARE, MEDICAID ==
[2023-12-29 19:10] LABS: IRON (FE) 59 UG/DL (50-170); PERCENT SATURATION 17.2 % (13.2-45.0); TOTAL IRON BINDING CAPACITY 344 UG/DL (250-425)
[2023-12-29 19:11] LABS: ALBUMIN 3.4 G/DL (3.2-5.2); ALKALINE PHOSPHATASE 123 U/L (46-116); ALT/SGPT 16 U/L (7.0-40); AST/SGOT 21 U/L (<34); BILIRUBIN,TOTAL 0.6 MG/DL (0.3-1.2); BLOOD UREA NITROGEN 10 MG/DL (9-23); CALCIUM LEVEL 10.6 MG/DL (8.3-10.6); CARBON DIOXIDE LEVEL 32 MMOL/L (20-31); CHLORIDE LEVEL 104 MMOL/L (98-107); CHOLESTEROL LEVEL 141 MG/DL (<200); CHOLESTEROL RISK RATIO 3.02 (<5); GLOMERULAR FILTRATION RATE > 60.0 (>32); GLUCOSE, FASTING 91 MG/DL (74-106); HDL CHOLESTEROL 46.6 MG/DL (>40); NON-HDL-C 94.4 MG/DL; SODIUM LEVEL 137 MMOL/L (136-145); TOTAL PROTEIN 7.1 G/DL (5.7-8.2); TRIGLYCERIDES LEVEL 87 MG/DL (<150)
[2023-12-29 19:14] LABS: FERRITIN 29.3 NG/ML (7.3-270.7); FREE T4 1.21 NG/DL (0.89-1.76); THYROID STIMULATING HORMONE 0.634 uIU/ML (0.55-4.78)
[2023-12-29 19:15] LABS: TOTAL 25(OH) VITAMIN D 88.1 NG/ML (20.0-100.0)
[2023-12-29 19:22] LABS: HEMATOCRIT 38.1 % (36.0-47.0); HEMOGLOBIN 11.8 g/dl (12.0-15.5); MEAN CORPUSCULAR HEMOGLOBIN 28.3 pg (27.0-33.0); MEAN CORPUSCULAR VOLUME 91.4 fl (80.0-96.0); PLATELET COUNT, AUTOMATED 327 10^3/uL (150-450); RED BLOOD COUNT 4.17 10^6/uL (4.00-5.40); WHITE BLOOD COUNT 7.8 10^3/uL (4.0-10.0)
[2023-12-29 19:37] LABS: HEMOGLOBIN A1c 5.4 % (4.0-6.0)
== END ==
LOC: M PLALAB 14:25
PROVIDERS: ATTEND Nurse Practitioner Adult Health
DX: E11.9 Type 2 diabetes mellitus without complications (principal); D50.9 Iron deficiency anemia, unspecified; E78.2 Mixed hyperlipidemia; E55.9 Vitamin D deficiency, unspecified; E50.0 Vitamin A deficiency with conjunctival xerosis; E04.1 Nontoxic single thyroid nodule

== ENCOUNTER → 2023-12-30 | Day surgery (SDC) | payer MEDICARE, MEDICAID ==
[~2023-12-30] VITALS: Ht 152.4 cm; Wt 45.4 kg
[~2023-12-30] MED LIST changes: +BSS IRRIG/VANCO(10MG)/TOBRA(5MG)/EPINEPH(1:1000-0.5CC)500ML BAG-ORONLY As Ordered ONE; +LIDOCAINE 1% SDV 5ML VIAL As Ordered ONE; +LIDOCAINE 3.5 % 1ML OPHTH TOPICAL GEL OU ONE; +MOXIFLOXACIN 0.6MG/0.4ML INTRAOCULAR SYRINGE As Ordered ONE; +fentaNYL 100 MCG/2 ML INJECTION As Ordered ONE
== END | disposition home or self-care (01) ==
LOC: M SDC 10:40
PROVIDERS: ATTEND Ophthalmology
DX: Z53.9 Procedure and treatment not carried out, unspecified reason (principal)

== ENCOUNTER → 2024-03-21 | Outpatient (CLI) | payer MEDICARE, MEDICAID ==
[~2024-03-21] MED LIST changes: -BSS IRRIG/VANCO(10MG)/TOBRA(5MG)/EPINEPH(1:1000-0.5CC)500ML BAG-ORONLY As Ordered ONE; -LIDOCAINE 1% SDV 5ML VIAL As Ordered ONE; -LIDOCAINE 3.5 % 1ML OPHTH TOPICAL GEL OU ONE; -MOXIFLOXACIN 0.6MG/0.4ML INTRAOCULAR SYRINGE As Ordered ONE; -fentaNYL 100 MCG/2 ML INJECTION As Ordered ONE
== END ==
LOC: M RAD 13:57
PROVIDERS: ATTEND Internal Medicine Pulmonary Disease
DX: R91.8 Other nonspecific abnormal finding of lung field (principal); J84.9 Interstitial pulmonary disease, unspecified; J21.9 Acute bronchiolitis, unspecified; J44.9 Chronic obstructive pulmonary disease, unspecified; N20.0 Calculus of kidney

== ENCOUNTER → 2024-12-05 | Outpatient (CLI) | payer MEDICARE, MEDICAID ==
[~2024-12-05] MED LIST changes: -ADV500INH INH; +ADVA1AER10 INH; +METH-1386 PO; -METH25TAB PO
== END ==
LOC: M RAD 13:29
PROVIDERS: ATTEND Internal Medicine Pulmonary Disease
DX: R91.8 Other nonspecific abnormal finding of lung field (principal); J84.9 Interstitial pulmonary disease, unspecified; J43.2 Centrilobular emphysema; I25.10 Atherosclerotic heart disease of native coronary artery without angina pectoris; I70.0 Atherosclerosis of aorta; K75.3 Granulomatous hepatitis, not elsewhere classified

== ENCOUNTER → 2025-04-18 | Outpatient (CLI) | payer MEDICARE, MEDICAID ==
[2025-04-18 12:41] LABS: PLATELET COUNT, AUTOMATED 389 10^3/uL (150-450)
[2025-04-18 12:49] LABS: ALT/SGPT 12 U/L (7.0-40); AST/SGOT 22 U/L (<34); CALCIUM LEVEL 9.9 MG/DL (8.3-10.6); CARBON DIOXIDE LEVEL 33 MMOL/L (20-31); CHLORIDE LEVEL 100 MMOL/L (98-107); CREATININE FOR GFR 0.54 MG/DL (0.55-1.30); GLOMERULAR FILTRATION RATE > 90.0 (>32); POTASSIUM SERUM 4.8 MMOL/L (3.5-5.1); SODIUM LEVEL 140 MMOL/L (136-145)
[2025-04-18 12:53] LABS: FREE T4 1.13 NG/DL (0.89-1.76)
[2025-04-18 13:08] LABS: ESTIMATED AVERAGE GLUCOSE 114.0 MG/DL (60-110)
== END ==
LOC: M PLALAB 09:50
PROVIDERS: ATTEND Nurse Practitioner Adult Health
DX: Z11.1 Encounter for screening for respiratory tuberculosis (principal); E11.9 Type 2 diabetes mellitus without complications; E04.1 Nontoxic single thyroid nodule; D50.9 Iron deficiency anemia, unspecified